=== PATIENT | female | born 1955 | race Caucasian/White ===

== ENCOUNTER 2021-02-04 13:00 | Outpatient (RCR) | payer BC, SELFPAY ==
--- NOTE | 2020-09-18 15:53 | PT.OIE ---
Current Diagnoses Complete rotator cuff tear or rupture of right shoulder, not specified as traumatic (09/18/20) Past Medical History (Last Updated 10/15/19 @ 15:12 by Janna Shelton PA-C) Hordeolum internum right upper eyelid Visit Care Team Role Provider Type Other Providers Specialty: Address: Phone: Fax: Email: Attending Provider Referring Provider Specialty: Address: Phone: Fax: Email: Physical Therapy Initial Evaluation PT-OP-A Visit Information Start: 09/11/20 14:43 Freq: Status: Active Protocol: Document 09/18/20 12:59 MB (Rec: 09/18/20 13:15 MB [id number]) Out-Patient Physical Therapy Visit Information Visit Information Visit Type Initial Evaluation Visit Note [employer] out of state Visit Start Time 12:59 Visit Stop Time 13:37 Total Visit Minutes 38 Visit Number 1 Evaluation Information Evaluation Date 09/18/20 Precautions Precautions Protocol is in EMR: surgery was 08/07/20: sling for 6 weeks and no AROM until 8 weeks PT-OP-B Current Condition Start: 09/11/20 14:43 Freq: Status: Active Protocol: Document 09/18/20 12:59 MB (Rec: 09/18/20 13:15 MB [id number]) Current Condition History of Current Condition Onset Date 08/07/20 Current Complaints Inability to use right arm much post-op History of Current Condition Pt underwent right shoulder arthroscopic surgery on with op report stating right bicep and subscapularis repairs and extensive debridement with grafting technique. Pt's surgeon is in [place]. She just moved up to [place]. Pt is right handed. She has just gotten back in the bed and is trying to lie flatter with sleeping. Pt denies numbness and tingling and pain. PMH includes: left rotator cuff surgery 7 years ago and PT Prior Treatments and Tests Left shoulder surgery and PT, PT for left hamstrings and achilles problems Treatment Goals Patient/Caregiver Goals To learn how to use her arm safely PT-OP-C Subjective Start: 09/11/20 14:43 Freq: Status: Active Protocol: Document 09/18/20 12:59 MB (Rec: 09/18/20 13:15 MB [id number]) OP-PT Subjective Patient Comments Patient Comments See history of current condition Patient Questionnaires Quick Dash- Upper Extremity Quick Dash UE Score 43 Quick Dash UE Impairment 60 to 79% Impaired (Score 60- 79) PT-OP-J Posture/Palpation/Skin Start: 09/11/20 14:43 Freq: Status: Active Protocol: Document 09/18/20 12:59 MB (Rec: 09/18/20 15:52 MB [id number]) Posture Evaluation Comments Posture Comments Standing posture: pt does allow her right arm to dangle by her side: forward head, rounded shoulders, increased thoracic kyphosis, increased lumbar lordosis, right upper thoracic spine and scapula are tight with mildly protracted right scapula, mild upper thoracic convexity to the right. Skin Assessment Other Assessments Skin Assessment Comments Right shoulder arthroscopic scars healing well and no edema or ecchymosis, fascial tension over right posterior delt and triceps and pt states that graft had a pulling effect PT-OP-K Range of Motion Start: 09/11/20 14:43 Freq: Status: Active Protocol: Document 09/18/20 12:59 MB (Rec: 09/18/20 15:52 MB [id number]) Cervical Spine Range of Motion Cervical Spine Active Testing Position Standing Flexion 43 Extension 35 Rotation Left 54 Rotation Right 56 Shoulder Goniometric Range of Motion Shoulder Right Shoulder ROM WFL No Testing Position Standing and supine Comments PROM: in standing flexion to 40 deg and abduction to 25 deg and pt does not perform active assistance. In supine: flexion to 80 deg and abduction to 73 deg. With shoulder in 73 deg abduction, ER 0 deg and IR 5 deg Left Shoulder ROM WFL Yes Testing Position Standing Shoulder ROM Limitations Comments Guarding and post-op limitations PT-OP-M Strength Start: 09/11/20 14:43 Freq: Status: Active Protocol: Document 09/18/20 12:59 MB (Rec: 09/18/20 15:52 MB [id number]) Shoulder Strength Shoulder Manual Muscle Testing Left Flexion 5 Normal Abduction (C5) 5 Normal External Rotation 5 Normal Internal Rotation 5 Normal Right Comments MMT deferred post-op 6 weeks Elbow/Forearm Strength Elbow and Forearm Manual Muscle Testing Left Flexion (C6) 5 Normal Extension (C7) 5 Normal Pronation 5 Normal Supination 5 Normal Right Comments MMT deferred post-op Wrist Strength Wrist Manual Muscle Testing Left Flexion (C7) 5 Normal Extension (C6) 5 Normal Right Comments MMT deferred post-op d/t pt guarding PT-OP-Q Treatments Start: 09/11/20 14:43 Freq: Status: Active Protocol: Document 09/18/20 12:59 MB (Rec: 09/18/20 15:52 MB [id number]) Therapeutic Exercises Standing Exercises Racquet ball massage Side right Comments Intrascapular muscles and then hold ball there and rotate head away Theracane MWM for upper traps and levator Side right Comments TrP pressure and tipping head away from that side Pendulum Comments PT demonstrates and pt states that she is already performing Self-Care/Home Management Treatment Education Other Education Use of towel roll for cervical support and to unweight shoulders for sleeping, use of peas PT-OP-T Assessment and Plan Start: 09/11/20 14:43 Freq: Status: Active Protocol: Document 09/18/20 12:59 MB (Rec: 09/18/20 15:52 MB [id number]) Physical Therapy Assessment Rehab Potential Rehabilitation Potential Good Evaluation Complexity Number of Personal Factors/Comorbidities 1-2 Number of Body Systems Impaired 1-2 Clinical Presentation at Evaluation Stable Impairments Impairments Activity Tolerance,Balance, Coordination,Functional Activities,Functional Mobility ,Gait,Posture,ROM,Soft Tissue Mobility,Strength Other Impairments Pt denies pain. She reports she has been guarded her right arm a lot and this may be a barrier to PT. Body systems affected include musculoskeletal and neuromuscular. Her clinical presentation is stable. Goals 5 System Safety Engineer Goal (LTG) Pt will perform progressive HEP with I including ROM, strengthening, postural, core and balance exercises to improve function by 11/19/20. LTG Duration 8 weeks 4 Usp Goal (LTG) Pt will be able to return to gardening for 20 minutes by 11/19/20. LTG Duration 8 weeks 3 System Safety Engineer Goal (LTG) Pt will be able to perform spinning yarn and knitting without pain by 11/19/20. LTG Duration 8 weeks 2 System Safety Engineer Goal (LTG) Pt will present with improved right shoulder AROM to at least 120 deg flexion and 100 deg abduction to improve functional use of arm by . LTG Duration 8 weeks 1 System Safety Engineer Goal (LTG) Pt will present with an improved QuickDASH score to reflect no more than 20% impairment to improve ADLs and IADLs by 11/19/20. LTG Duration 8 weeks Assessment Summary Assessment Pt is a 64 y/o female presenting with decreased right shoulder ROM and functional use after right shoulder arthroscopic surgery in [place] 08/07/20. Pt underwent cadaver grafting as part of surgeon protocol. Per order, pt is not supposed to start AROM until 8 weeks post-op. There are no other therapy guidelines on order. Pt presents with scars healing well, no edema or ecchymosis and noticeable fascial tension along right posterior deltoid and triceps. She presents with thoracic and cervical stiffness and good range and strength of LUE. She has been performing pendulums and right elbow flexion, supination and pronation and wrist movement. She will benefit from PT to improve range of motion, functional strength and posture. Physical Therapy Plan Frequency and Duration Frequency of Treatment 2x/Week Duration of Treatment 8 weeks Plan of Care Start Date 09/18/20 Plan of Care End Date 11/19/20 Therapeutic Interventions Therapeutic Interventions Balance Training,Canalithic Repositioning,Gait Training, Home Exercise Program,Joint Mobilizations,Manual Therapy, Neuromuscular Re-education, Orthotic/Prosthetic Management ,Patient/Caregiver Education, Self-Care/Home Management,Soft Tissue Mobilization,Taping, Therapeutic Activities, Therapeutic Exercises Modalities Cold Pack/Ice Massage,Electric Stimulation,Hot Packs, Ultrasound Next Visit Focus/Plan Next Note Type Treatment Note Next Visit Plan Initiate thoracic rotation in sitting, scapular retraction & hook lying cane flexion for HEP, manual work
--- NOTE | 2020-09-18 15:53 | PT.OPPOC ---
Physical, Occupational & Speech Therapy At [facility] Current Diagnoses Complete rotator cuff tear or rupture of right shoulder, not specified as traumatic (09/18/20) Visit Care Team Role Provider Type Other Providers Specialty: Address: Phone: Fax: Email: Attending Provider Referring Provider Specialty: Address: Phone: Fax: Email: Plan Of Care PT-OP-T Assessment and Plan Start: 09/11/20 14:43 Freq: Status: Active Protocol: Document 09/18/20 12:59 MB (Rec: 09/18/20 15:52 MB [id number]) Physical Therapy Assessment Rehab Potential Rehabilitation Potential Good Evaluation Complexity Number of Personal Factors/Comorbidities 1-2 Number of Body Systems Impaired 1-2 Clinical Presentation at Evaluation Stable Impairments Impairments Activity Tolerance,Balance, Coordination,Functional Activities,Functional Mobility ,Gait,Posture,ROM,Soft Tissue Mobility,Strength Other Impairments Pt denies pain. She reports she has been guarded her right arm a lot and this may be a barrier to PT. Body systems affected include musculoskeletal and neuromuscular. Her clinical presentation is stable. Goals 5 Excellence Consultant Goal (LTG) Pt will perform progressive HEP with I including ROM, strengthening, postural, core and balance exercises to improve function by 11/19/20. LTG Duration 8 weeks 4 Excellence Consultant Goal (LTG) Pt will be able to return to gardening for 20 minutes by 11/19/20. LTG Duration 8 weeks 3 Excellence Consultant Goal (LTG) Pt will be able to perform spinning yarn and knitting without pain by 11/19/20. LTG Duration 8 weeks 2 Detention Goal (LTG) Pt will present with improved right shoulder AROM to at least 120 deg flexion and 100 deg abduction to improve functional use of arm by . LTG Duration 8 weeks 1 Detention Goal (LTG) Pt will present with an improved QuickDASH score to reflect no more than 20% impairment to improve ADLs and IADLs by 11/19/20. LTG Duration 8 weeks Assessment Summary Assessment Pt is a 64 y/o female presenting with decreased right shoulder ROM and functional use after right shoulder arthroscopic surgery in [place] 08/07/20. Pt underwent cadaver grafting as part of surgeon protocol. Per order, pt is not supposed to start AROM until 8 weeks post-op. There are no other therapy guidelines on order. Pt presents with scars healing well, no edema or ecchymosis and noticeable fascial tension along right posterior deltoid and triceps. She presents with thoracic and cervical stiffness and good range and strength of LUE. She has been performing pendulums and right elbow flexion, supination and pronation and wrist movement. She will benefit from PT to improve range of motion, functional strength and posture. Physical Therapy Plan Frequency and Duration Frequency of Treatment 2x/Week Duration of Treatment 8 weeks Plan of Care Start Date 09/18/20 Plan of Care End Date 11/19/20 Therapeutic Interventions Therapeutic Interventions Balance Training,Canalithic Repositioning,Gait Training, Home Exercise Program,Joint Mobilizations,Manual Therapy, Neuromuscular Re-education, Orthotic/Prosthetic Management ,Patient/Caregiver Education, Self-Care/Home Management,Soft Tissue Mobilization,Taping, Therapeutic Activities, Therapeutic Exercises Modalities Cold Pack/Ice Massage,Electric Stimulation,Hot Packs, Ultrasound Next Visit Focus/Plan Next Note Type Treatment Note Next Visit Plan Initiate thoracic rotation in sitting, scapular retraction & hook lying cane flexion for HEP, manual work Plan of Care Dates Plan of Care Start Date 09/18/20 Plan of Care End Date 11/19/20 Electronically Signed by: Aminah Malik PT 09/18/20 [id number] Please Sign and Return: I have reviewed this Plan of Care and certify that the skilled therapy services above are required to meet the patient?s needs. Physician Signature Date Printed Name and Credentials Clinical Instructor Signature Printed Name and Credentials
--- NOTE | 2020-09-22 13:10 | PT.OTN ---
Current Diagnoses Complete rotator cuff tear or rupture of right shoulder, not specified as traumatic (09/22/20) Physical Therapy Treatment Note PT-OP-A Visit Information Start: 09/11/20 14:43 Freq: Status: Active Protocol: Document 09/22/20 12:19 SP (Rec: 09/22/20 13:09 SP [id number]) Out-Patient Physical Therapy Visit Information Visit Information Visit Type Treatment Note Visit Start Time 12:19 Visit Stop Time 13:10 Total Visit Minutes 51 Visit Number 2 Number of MEDICAL PATHOLOGIST Visits 1 Evaluation Information Evaluation Date 09/18/20 Precautions Precautions Protocol is in EMR: surgery was 08/07/20: sling for 6 weeks and no AROM until 8 weeks PT-OP-B Current Condition Start: 09/11/20 14:43 Freq: Status: Active Protocol: Document 09/18/20 12:59 MB (Rec: 09/18/20 13:15 MB [id number]) Current Condition History of Current Condition Onset Date 08/07/20 Current Complaints Inability to use right arm much post-op History of Current Condition Pt underwent right shoulder arthroscopic surgery on with op report stating right bicep and subscapularis repairs and extensive debridement with grafting technique. Pt's surgeon is in [place]. She just moved up to [place]. Pt is right handed. She has just gotten back in the bed and is trying to lie flatter with sleeping. Pt denies numbness and tingling and pain. PMH includes: left rotator cuff surgery 7 years ago and PT Prior Treatments and Tests Left shoulder surgery and PT, PT for left hamstrings and achilles problems Treatment Goals Patient/Caregiver Goals To learn how to use her arm safely PT-OP-C Subjective Start: 09/11/20 14:43 Freq: Status: Active Protocol: Document 09/22/20 12:19 SP (Rec: 09/22/20 13:09 SP [id number]) OP-PT Subjective Patient Comments Patient Comments Pt stated did move her R arm, PT-OP-J Posture/Palpation/Skin Start: 09/11/20 14:43 Freq: Status: Active Protocol: Document 09/18/20 12:59 MB (Rec: 09/18/20 15:52 MB [id number]) Posture Evaluation Comments Posture Comments Standing posture: pt does allow her right arm to dangle by her side: forward head, rounded shoulders, increased thoracic kyphosis, increased lumbar lordosis, right upper thoracic spine and scapula are tight with mildly protracted right scapula, mild upper thoracic convexity to the right. Skin Assessment Other Assessments Skin Assessment Comments Right shoulder arthroscopic scars healing well and no edema or ecchymosis, fascial tension over right posterior delt and triceps and pt states that graft had a pulling effect PT-OP-K Range of Motion Start: 09/11/20 14:43 Freq: Status: Active Protocol: Document 09/18/20 12:59 MB (Rec: 09/18/20 15:52 MB [id number]) Cervical Spine Range of Motion Cervical Spine Active Testing Position Standing Flexion 43 Extension 35 Rotation Left 54 Rotation Right 56 Shoulder Goniometric Range of Motion Shoulder Right Shoulder ROM WFL No Testing Position Standing and supine Comments PROM: in standing flexion to 40 deg and abduction to 25 deg and pt does not perform active assistance. In supine: flexion to 80 deg and abduction to 73 deg. With shoulder in 73 deg abduction, ER 0 deg and IR 5 deg Left Shoulder ROM WFL Yes Testing Position Standing Shoulder ROM Limitations Comments Guarding and post-op limitations PT-OP-M Strength Start: 09/11/20 14:43 Freq: Status: Active Protocol: Document 09/18/20 12:59 MB (Rec: 09/18/20 15:52 MB [id number]) Shoulder Strength Shoulder Manual Muscle Testing Left Flexion 5 Normal Abduction (C5) 5 Normal External Rotation 5 Normal Internal Rotation 5 Normal Right Comments MMT deferred post-op 6 weeks Elbow/Forearm Strength Elbow and Forearm Manual Muscle Testing Left Flexion (C6) 5 Normal Extension (C7) 5 Normal Pronation 5 Normal Supination 5 Normal Right Comments MMT deferred post-op Wrist Strength Wrist Manual Muscle Testing Left Flexion (C7) 5 Normal Extension (C6) 5 Normal Right Comments MMT deferred post-op d/t pt guarding PT-OP-Q Treatments Start: 09/11/20 14:43 Freq: Status: Active Protocol: Document 09/22/20 12:19 SP (Rec: 09/22/20 13:09 SP [id number]) Therapeutic Exercises Supine Exercises AAROM dowel FF Supine Exercise Name added to HEP Side right Resistance AAROM Equipment Used dowel Reps/Minutes x8 reps Comments approx 90-95 deg Sitting Exercises Ts rotation Sitting Exercise Name LUE supporting RUE- added to HEP Side bilateral Reps/Minutes 5 sec hold x5 each side Comments good scap stab demonstration UT, Lev scap stretch Sitting Exercise Name added to HEP Side right Reps/Minutes 30 x3 each Comments good feedback response scap retraction Sitting Exercise Name added to HEP Side bilateral Reps/Minutes 5 sec hold x10 Comments good feedback response Standing Exercises Racquet ball massage Standing Exercise Name discussed but not performed this tx- helpful at home Side right Comments Intrascapular muscles and then hold ball there and rotate head away Theracane MWM for upper traps and levator Standing Exercise Name discussed but not performed this tx- helpful at home Side right Comments TrP pressure and tipping head away from that side Pendulum Standing Exercise Name discussed but not performed this tx- has been performing since surgery Comments PT demonstrates and pt states that she is already performing Manual Therapy Treatment Soft Tissue Mobilization R scap PNF Body Position Sidelying Comments retract/ depress stabilization STMs Body Location UT, Lev scap, suprasp, bicep Mobilization Type Myofascial Release,Strumming Intensity/Depth Superficial Body Position Supine PT-OP-R Modalities Start: 09/11/20 14:43 Freq: Status: Active Protocol: Document 09/22/20 12:19 SP (Rec: 09/22/20 13:09 SP [id number]) Hot Pack/Cold Pack Treatment cryocuf Location R shld Patient Position Sitting Treatment Duration (minutes) 10 Patient Tolerance Good PT-OP-T Assessment and Plan Start: 09/11/20 14:43 Freq: Status: Active Protocol: Document 09/22/20 12:19 SP (Rec: 09/22/20 13:09 SP [id number]) Physical Therapy Assessment Goals 5 Residential Goal (LTG) Pt will perform progressive HEP with I including ROM, strengthening, postural, core and balance exercises to improve function by 11/19/20. 09/22/20: supine FF w/ dowel, seated scap retraction/TS rotation/ UT & lev scap stretch, self STMs using racquetball and theracane. LTG Duration 8 weeks 4 Residential Goal (LTG) Pt will be able to return to gardening for 20 minutes by 11/19/20. LTG Duration 8 weeks 3 Logistics System Engineer Goal (LTG) Pt will be able to perform spinning yarn and knitting without pain by 11/19/20. LTG Duration 8 weeks 2 Logistics System Engineer Goal (LTG) Pt will present with improved right shoulder AROM to at least 120 deg flexion and 100 deg abduction to improve functional use of arm by . LTG Duration 8 weeks 1 Residential Goal (LTG) Pt will present with an improved QuickDASH score to reflect no more than 20% impairment to improve ADLs and IADLs by 11/19/20. LTG Duration 8 weeks Assessment Summary Assessment Pt had good tolerance to manual STMs/ PROM, initiated HEP supine/ seated see HEP goal. Ended with modality with good response no pain. Physical Therapy Plan Frequency and Duration Frequency of Treatment 2x/Week Duration of Treatment 8 weeks Plan of Care Start Date 09/18/20 Plan of Care End Date 11/19/20 Therapeutic Interventions Therapeutic Interventions Balance Training,Canalithic Repositioning,Gait Training, Home Exercise Program,Joint Mobilizations,Manual Therapy, Neuromuscular Re-education, Orthotic/Prosthetic Management ,Patient/Caregiver Education, Self-Care/Home Management,Soft Tissue Mobilization,Taping, Therapeutic Activities, Therapeutic Exercises Modalities Cold Pack/Ice Massage,Electric Stimulation,Hot Packs, Ultrasound Next Visit Focus/Plan Next Note Type Treatment Note Next Visit Plan Last tx: Initiate thoracic rotation in sitting, scapular retraction & hook lying cane flexion for HEP. Next tx review. manual work
--- NOTE | 2020-09-25 15:26 | PT.OTN ---
Current Diagnoses Complete rotator cuff tear or rupture of right shoulder, not specified as traumatic (09/25/20) Physical Therapy Treatment Note PT-OP-A Visit Information Start: 09/11/20 14:43 Freq: Status: Active Protocol: Document 09/25/20 14:32 MB (Rec: 09/25/20 15:21 MB [id number]) Out-Patient Physical Therapy Visit Information Visit Information Visit Type Treatment Note Visit Start Time 14:32 Visit Stop Time 15:15 Total Visit Minutes 43 Visit Number 3 Number of FISHING HAND Visits 0 Precautions Precautions Protocol is in EMR: surgery was 08/07/20: sling for 6 weeks and no AROM until 8 weeks PT-OP-B Current Condition Start: 09/11/20 14:43 Freq: Status: Active Protocol: Document 09/18/20 12:59 MB (Rec: 09/18/20 13:15 MB [id number]) Current Condition History of Current Condition Onset Date 08/07/20 Current Complaints Inability to use right arm much post-op History of Current Condition Pt underwent right shoulder arthroscopic surgery on with op report stating right bicep and subscapularis repairs and extensive debridement with grafting technique. Pt's surgeon is in [place]. She just moved up to [place]. Pt is right handed. She has just gotten back in the bed and is trying to lie flatter with sleeping. Pt denies numbness and tingling and pain. PMH includes: left rotator cuff surgery 7 years ago and PT Prior Treatments and Tests Left shoulder surgery and PT, PT for left hamstrings and achilles problems Treatment Goals Patient/Caregiver Goals To learn how to use her arm safely PT-OP-C Subjective Start: 09/11/20 14:43 Freq: Status: Active Protocol: Document 09/25/20 14:32 MB (Rec: 09/25/20 15:21 MB [id number]) OP-PT Subjective Patient Comments Patient Comments Pt states that she forgot the hard copies of her doctor's notes and exercises today. She will be 8 weeks post-op . Her follow-up with the surgeon over Telehealth is 10/21. Pt is noticing knots in her neck. PT-OP-J Posture/Palpation/Skin Start: 09/11/20 14:43 Freq: Status: Active Protocol: Document 09/18/20 12:59 MB (Rec: 09/18/20 15:52 MB [id number]) Posture Evaluation Comments Posture Comments Standing posture: pt does allow her right arm to dangle by her side: forward head, rounded shoulders, increased thoracic kyphosis, increased lumbar lordosis, right upper thoracic spine and scapula are tight with mildly protracted right scapula, mild upper thoracic convexity to the right. Skin Assessment Other Assessments Skin Assessment Comments Right shoulder arthroscopic scars healing well and no edema or ecchymosis, fascial tension over right posterior delt and triceps and pt states that graft had a pulling effect PT-OP-K Range of Motion Start: 09/11/20 14:43 Freq: Status: Active Protocol: Document 09/18/20 12:59 MB (Rec: 09/18/20 15:52 MB [id number]) Cervical Spine Range of Motion Cervical Spine Active Testing Position Standing Flexion 43 Extension 35 Rotation Left 54 Rotation Right 56 Shoulder Goniometric Range of Motion Shoulder Right Shoulder ROM WFL No Testing Position Standing and supine Comments PROM: in standing flexion to 40 deg and abduction to 25 deg and pt does not perform active assistance. In supine: flexion to 80 deg and abduction to 73 deg. With shoulder in 73 deg abduction, ER 0 deg and IR 5 deg Left Shoulder ROM WFL Yes Testing Position Standing Shoulder ROM Limitations Comments Guarding and post-op limitations PT-OP-M Strength Start: 09/11/20 14:43 Freq: Status: Active Protocol: Document 09/18/20 12:59 MB (Rec: 09/18/20 15:52 MB [id number]) Shoulder Strength Shoulder Manual Muscle Testing Left Flexion 5 Normal Abduction (C5) 5 Normal External Rotation 5 Normal Internal Rotation 5 Normal Right Comments MMT deferred post-op 6 weeks Elbow/Forearm Strength Elbow and Forearm Manual Muscle Testing Left Flexion (C6) 5 Normal Extension (C7) 5 Normal Pronation 5 Normal Supination 5 Normal Right Comments MMT deferred post-op Wrist Strength Wrist Manual Muscle Testing Left Flexion (C7) 5 Normal Extension (C6) 5 Normal Right Comments MMT deferred post-op d/t pt guarding PT-OP-Q Treatments Start: 09/11/20 14:43 Freq: Status: Active Protocol: Document 09/25/20 14:32 MB (Rec: 09/25/20 15:25 MB [id number]) Manual Therapy Treatment Other Other Manual Treatments STM right pects with PROM right shoulder ER and IR, passive shoulder flexion and extension to neutral, positional release and STM posterior and middle right delt, B first rib isometric, MWM B SCMs with PT providing TrP pressure and pt performing active cervical rotation opposite direction, scapular mobs B scapula, greater on the right. Much improve right pect and posterior deltoid tension after treatment, B first ribs moving better and right scapula moving better. PT-OP-R Modalities Start: 09/11/20 14:43 Freq: Status: Active Protocol: Document 09/22/20 12:19 SP (Rec: 09/22/20 13:09 SP [id number]) Hot Pack/Cold Pack Treatment cryocuf Location R shld Patient Position Sitting Treatment Duration (minutes) 10 Patient Tolerance Good PT-OP-T Assessment and Plan Start: 09/11/20 14:43 Freq: Status: Active Protocol: Document 09/25/20 14:32 MB (Rec: 09/25/20 15:21 MB [id number]) Physical Therapy Assessment Rehab Potential Rehabilitation Potential Good Evaluation Complexity Number of Personal Factors/Comorbidities 1-2 Number of Body Systems Impaired 1-2 Clinical Presentation at Evaluation Stable Impairments Impairments Activity Tolerance,Balance, Coordination,Functional Activities,Functional Mobility ,Gait,Posture,ROM,Soft Tissue Mobility,Strength Other Impairments Pt denies pain. She reports she has been guarded her right arm a lot and this may be a barrier to PT. Body systems affected include musculoskeletal and neuromuscular. Her clinical presentation is stable. Goals 5 Custodial Goal (LTG) Pt will perform progressive HEP with I including ROM, strengthening, postural, core and balance exercises to improve function by 11/19/20. LTG Duration 8 weeks 4 Health Insurance Agent Goal (LTG) Pt will be able to return to gardening for 20 minutes by 11/19/20. LTG Duration 8 weeks 3 Health Insurance Agent Goal (LTG) Pt will be able to perform spinning yarn and knitting without pain by 11/19/20. LTG Duration 8 weeks 2 Custodial Goal (LTG) Pt will present with improved right shoulder AROM to at least 120 deg flexion and 100 deg abduction to improve functional use of arm by . LTG Duration 8 weeks 1 Health Insurance Agent Goal (LTG) Pt will present with an improved QuickDASH score to reflect no more than 20% impairment to improve ADLs and IADLs by 11/19/20. LTG Duration 8 weeks Assessment Summary Assessment Manual work today to improve right scapular and myofascial mobility and pt tolerates well . She has significant increased thoracic kyphosis in prone and has started to work on thoracic mobility with exercises. Physical Therapy Plan Frequency and Duration Frequency of Treatment 2x/Week Duration of Treatment 8 weeks Plan of Care Start Date 09/18/20 Plan of Care End Date 11/19/20 Therapeutic Interventions Therapeutic Interventions Balance Training,Canalithic Repositioning,Gait Training, Home Exercise Program,Joint Mobilizations,Manual Therapy, Neuromuscular Re-education, Orthotic/Prosthetic Management ,Patient/Caregiver Education, Self-Care/Home Management,Soft Tissue Mobilization,Taping, Therapeutic Activities, Therapeutic Exercises Modalities Cold Pack/Ice Massage,Electric Stimulation,Hot Packs, Ultrasound Next Visit Focus/Plan Next Note Type Treatment Note Next Visit Plan Progress AAROM with cane in supine. Ongoing manual work including thoracic mobility, consider Counterstrain and Buteyko breathing. At 8 week dontrell 10/07/20, consider side lying open book, stretching over pool noodle
--- NOTE | 2020-09-29 13:01 | PT.OTN ---
Current Diagnoses Complete rotator cuff tear or rupture of right shoulder, not specified as traumatic (09/29/20) Physical Therapy Treatment Note PT-OP-A Visit Information Start: 09/11/20 14:43 Freq: Status: Active Protocol: Document 09/29/20 12:16 SP (Rec: 09/29/20 16:23 SP [id number]) Out-Patient Physical Therapy Visit Information Visit Information Visit Type Treatment Note Visit Start Time 12:16 Visit Stop Time 13:01 Total Visit Minutes 45 Visit Number 4 Number of PROJECT CONTROLS SCHEDULER Visits 1 Evaluation Information Evaluation Date 09/18/20 Precautions Precautions Protocol is in EMR: surgery was 08/07/20: sling for 6 weeks and no AROM until 8 weeks PT-OP-B Current Condition Start: 09/11/20 14:43 Freq: Status: Active Protocol: Document 09/18/20 12:59 MB (Rec: 09/18/20 13:15 MB [id number]) Current Condition History of Current Condition Onset Date 08/07/20 Current Complaints Inability to use right arm much post-op History of Current Condition Pt underwent right shoulder arthroscopic surgery on with op report stating right bicep and subscapularis repairs and extensive debridement with grafting technique. Pt's surgeon is in [place]. She just moved up to [place]. Pt is right handed. She has just gotten back in the bed and is trying to lie flatter with sleeping. Pt denies numbness and tingling and pain. PMH includes: left rotator cuff surgery 7 years ago and PT Prior Treatments and Tests Left shoulder surgery and PT, PT for left hamstrings and achilles problems Treatment Goals Patient/Caregiver Goals To learn how to use her arm safely PT-OP-C Subjective Start: 09/11/20 14:43 Freq: Status: Active Protocol: Document 09/29/20 12:16 SP (Rec: 09/29/20 16:23 SP [id number]) OP-PT Subjective Patient Comments Patient Comments Pt reported is please gaining more ROM and only wearing sling out in community, compliant with HEP but still having neck and R scapular stiffness/ tightness. She will be 8 weeks post-op 10/07/20. Her follow-up with the surgeon over Telehealth is 10/21/20. PT-OP-J Posture/Palpation/Skin Start: 09/11/20 14:43 Freq: Status: Active Protocol: Document 09/18/20 12:59 MB (Rec: 09/18/20 15:52 MB [id number]) Posture Evaluation Comments Posture Comments Standing posture: pt does allow her right arm to dangle by her side: forward head, rounded shoulders, increased thoracic kyphosis, increased lumbar lordosis, right upper thoracic spine and scapula are tight with mildly protracted right scapula, mild upper thoracic convexity to the right. Skin Assessment Other Assessments Skin Assessment Comments Right shoulder arthroscopic scars healing well and no edema or ecchymosis, fascial tension over right posterior delt and triceps and pt states that graft had a pulling effect PT-OP-K Range of Motion Start: 09/11/20 14:43 Freq: Status: Active Protocol: Document 09/18/20 12:59 MB (Rec: 09/18/20 15:52 MB [id number]) Cervical Spine Range of Motion Cervical Spine Active Testing Position Standing Flexion 43 Extension 35 Rotation Left 54 Rotation Right 56 Shoulder Goniometric Range of Motion Shoulder Right Shoulder ROM WFL No Testing Position Standing and supine Comments PROM: in standing flexion to 40 deg and abduction to 25 deg and pt does not perform active assistance. In supine: flexion to 80 deg and abduction to 73 deg. With shoulder in 73 deg abduction, ER 0 deg and IR 5 deg Left Shoulder ROM WFL Yes Testing Position Standing Shoulder ROM Limitations Comments Guarding and post-op limitations PT-OP-M Strength Start: 09/11/20 14:43 Freq: Status: Active Protocol: Document 09/18/20 12:59 MB (Rec: 09/18/20 15:52 MB [id number]) Shoulder Strength Shoulder Manual Muscle Testing Left Flexion 5 Normal Abduction (C5) 5 Normal External Rotation 5 Normal Internal Rotation 5 Normal Right Comments MMT deferred post-op 6 weeks Elbow/Forearm Strength Elbow and Forearm Manual Muscle Testing Left Flexion (C6) 5 Normal Extension (C7) 5 Normal Pronation 5 Normal Supination 5 Normal Right Comments MMT deferred post-op Wrist Strength Wrist Manual Muscle Testing Left Flexion (C7) 5 Normal Extension (C6) 5 Normal Right Comments MMT deferred post-op d/t pt guarding PT-OP-Q Treatments Start: 09/11/20 14:43 Freq: Status: Active Protocol: Document 09/29/20 12:16 SP (Rec: 09/29/20 16:23 SP [id number]) Therapeutic Exercises Supine Exercises Rshld ER AROM Side right Resistance AROM Reps/Minutes x5 Comments 62 deg tolerant range, cued scap stab dowel protaction Supine Exercise Name 1 protraction- added to HEP Side bilateral Resistance AROM Reps/Minutes 2x10 Comments occasional cue for scap stab depression, pain free AAROM dowel ER Supine Exercise Name added to HEP- Side right Resistance AAROM Equipment Used dowel Reps/Minutes x8 reps Comments 62 *- painfree range- not over stress shld AAROM dowel FF Supine Exercise Name reviewed HEP Side right Resistance AAROM Equipment Used dowel Reps/Minutes 2x8 reps Comments approx 126 deg Sidelying Exercises R shld ER Sidelying Exercise Name added to HEP- give HO next tx Side right Resistance AROM Equipment Used towel roll under arm Reps/Minutes 2x8 Comments occasional cue for scap depress awareness Sitting Exercises cervical rotation Sitting Exercise Name review HEP Side bilateral Reps/Minutes 15 sec hold x2 Comments can provide over pressure to L using LUE for assist stretch Ts rotation Sitting Exercise Name LUE supporting RUE- reviewed HEP Side bilateral Reps/Minutes 5 sec hold x5 each side Comments good scap stab demonstration UT, Lev scap stretch Sitting Exercise Name review HEP Side right Reps/Minutes 30 x2 each Comments good feedback response scap retraction Sitting Exercise Name added to HEP Side bilateral Reps/Minutes 5 sec hold x10 Comments good feedback response Standing Exercises shld IR assess Standing Exercise Name pt able reach R hand behind R buttocks Side right Resistance AROM Equipment Used 0 Reps/Minutes x3 Comments light tension anterior shld but not pain feels good to do little Theracane MWM for upper traps and levator Standing Exercise Name UT, lev scap, interscapular mus. Side right Resistance head not/ turns, or scap mov't see HO Comments TrP pressure, MWM today arms rested on chest holding theracane Manual Therapy Treatment Soft Tissue Mobilization STMs Body Location UT, Lev scap, suprasp, bicep Mobilization Type Myofascial Release,Strumming Intensity/Depth Superficial Body Position Supine Comments Instruction on self application sustained pressure fingers or theracane with head turn/ nod pressure on neck mus, or scap mob pressure over UT/ lev scap. PT-OP-R Modalities Start: 09/11/20 14:43 Freq: Status: Active Protocol: Document 09/22/20 12:19 SP (Rec: 09/22/20 13:09 SP [id number]) Hot Pack/Cold Pack Treatment cryocuf Location R shld Patient Position Sitting Treatment Duration (minutes) 10 Patient Tolerance Good PT-OP-T Assessment and Plan Start: 09/11/20 14:43 Freq: Status: Active Protocol: Document 09/29/20 12:16 SP (Rec: 09/29/20 16:23 SP [id number]) Physical Therapy Assessment Goals 5 Assisted Goal (LTG) Pt will perform progressive HEP with I including ROM, strengthening, postural, core and balance exercises to improve function by 11/19/20. 09/29/20: self STMs racquetball at wall interscapular, theracane MWM neck/ interscap, UT/lev scap/CS rotation w/ over gentle over pressure, hooklying: Dowel, FF, serratus press. LTG Duration 8 weeks 4 Assisted Goal (LTG) Pt will be able to return to gardening for 20 minutes by 11/19/20. LTG Duration 8 weeks 3 Assisted Goal (LTG) Pt will be able to perform spinning yarn and knitting without pain by 11/19/20. LTG Duration 8 weeks 2 Assisted Goal (LTG) Pt will present with improved right shoulder AROM to at least 120 deg flexion and 100 deg abduction to improve functional use of arm by . 09/29/20: AAROM w/ dowel 126 deg, ABD PROM 110 deg, ER AAROM 62 deg hooklying tension but stops end feel can perform to maintain pain free range. LTG Duration 8 weeks 1 Social Sciences Lecturer Goal (LTG) Pt will present with an improved QuickDASH score to reflect no more than 20% impairment to improve ADLs and IADLs by 11/19/20. LTG Duration 8 weeks Assessment Summary Assessment Manual and instructional review of self application STMs and stretching, reviewed HEP hooklying FF, added serratus press today w/ dowel painfree, side shld ER AROM with good painfree, and awareness of scap stab, trunk stability. Pt is able to tolerate what allowed to instruct at this time post- op . PT recommended reduction to 1x/wk after appt finished until see ortho with further allowance of ROM and strengthening. PROJECT CONTROLS SCHEDULER left message and sent message to front desk admin for awareness cxl appt. Physical Therapy Plan Frequency and Duration Frequency of Treatment 2x/Week Duration of Treatment 8 weeks Plan of Care Start Date 09/18/20 Plan of Care End Date 11/19/20 Therapeutic Interventions Therapeutic Interventions Balance Training,Canalithic Repositioning,Gait Training, Home Exercise Program,Joint Mobilizations,Manual Therapy, Neuromuscular Re-education, Orthotic/Prosthetic Management ,Patient/Caregiver Education, Self-Care/Home Management,Soft Tissue Mobilization,Taping, Therapeutic Activities, Therapeutic Exercises Modalities Cold Pack/Ice Massage,Electric Stimulation,Hot Packs, Ultrasound Next Visit Focus/Plan Next Note Type Treatment Note Next Visit Plan Progress AAROM with cane in supine. Ongoing manual work including thoracic mobility, consider Counterstrain and Buteyko breathing. At 8 week dontrell 10/07/20, consider side lying open book, stretching over pool noodle
--- NOTE | 2020-09-30 11:13 | PT-OP ANOTE ---
PT and CORPORATE TRAVEL AGENT discuss about reducing PT frequency to 1x/wk until pt follows-up with surgeon and protocol can be advanced since pt is doing well with AAROM exercises. CORPORATE TRAVEL AGENT leaves a message for pt. Pt calls PT back and states that she does not want to reduce PT frequency unless cleared by provider, Mer Carpenter, and she asks PT to call her office. PT calls office in [place] and is informed that Mer's new last name is Rosa Maria and this is the provider listed in EMR for pt. Staff at provider office read provider's last note with shoulder restrictions and these are what PT has from the eval. They verify the follow-up appointment via Telehealth in October. PT asks for an updated specific protocol to be faxed to this clinic and PT provides fax number in setting of out of state shoulder arthroscopic surgery with grafting. Staff person, Tara, states that he will do this. PT calls pt and pt states that Mer said at her last visit that she wants to hear from PT about pt's progress and invited conversation. PT communicates that PT has contacted provider office and is awaiting updated protocol with request for specific protocol. PT also communicates that PT will perform progress note at 10th visit or when pt is able to advance so that better information can be provided to provider. Pt comments that she feels that provider wants to hear more often from PT. Unsure about pt expectations about PT communicating with provider. PT con't to recommend decreasing frequency to 1x/wk since pt is doing well with AAROM exercises and pt herself is cautious about wanting to wait for follow-up before advancing anything with PT. Will await hearing back from provider office.
--- NOTE | 2020-10-02 15:24 | PT.OTN ---
Current Diagnoses Complete rotator cuff tear or rupture of right shoulder, not specified as traumatic (10/02/20) Physical Therapy Treatment Note PT-OP-A Visit Information Start: 09/11/20 14:43 Freq: Status: Active Protocol: Document 10/02/20 14:43 MB (Rec: 10/02/20 15:15 MB [id number]) Out-Patient Physical Therapy Visit Information Visit Information Visit Type Treatment Note Visit Start Time 14:43 Visit Stop Time 15:15 Total Visit Minutes 32 Visit Number 5 Precautions Precautions No specific protocol yet arrived and PT called and asked for one earlier in the week and pt also left a message PT-OP-B Current Condition Start: 09/11/20 14:43 Freq: Status: Active Protocol: Document 09/18/20 12:59 MB (Rec: 09/18/20 13:15 MB [id number]) Current Condition History of Current Condition Onset Date 08/07/20 Current Complaints Inability to use right arm much post-op History of Current Condition Pt underwent right shoulder arthroscopic surgery on with op report stating right bicep and subscapularis repairs and extensive debridement with grafting technique. Pt's surgeon is in [place]. She just moved up to [place]. Pt is right handed. She has just gotten back in the bed and is trying to lie flatter with sleeping. Pt denies numbness and tingling and pain. PMH includes: left rotator cuff surgery 7 years ago and PT Prior Treatments and Tests Left shoulder surgery and PT, PT for left hamstrings and achilles problems Treatment Goals Patient/Caregiver Goals To learn how to use her arm safely PT-OP-C Subjective Start: 09/11/20 14:43 Freq: Status: Active Protocol: Document 10/02/20 14:43 MB (Rec: 10/02/20 15:15 MB [id number]) OP-PT Subjective Patient Comments Patient Comments Pt is eager to proceed as rapidly as reasonable. She is 8 weeks out today and did not wear sling to PT. PT-OP-J Posture/Palpation/Skin Start: 09/11/20 14:43 Freq: Status: Active Protocol: Document 09/18/20 12:59 MB (Rec: 09/18/20 15:52 MB [id number]) Posture Evaluation Comments Posture Comments Standing posture: pt does allow her right arm to dangle by her side: forward head, rounded shoulders, increased thoracic kyphosis, increased lumbar lordosis, right upper thoracic spine and scapula are tight with mildly protracted right scapula, mild upper thoracic convexity to the right. Skin Assessment Other Assessments Skin Assessment Comments Right shoulder arthroscopic scars healing well and no edema or ecchymosis, fascial tension over right posterior delt and triceps and pt states that graft had a pulling effect PT-OP-K Range of Motion Start: 09/11/20 14:43 Freq: Status: Active Protocol: Document 09/18/20 12:59 MB (Rec: 09/18/20 15:52 MB [id number]) Cervical Spine Range of Motion Cervical Spine Active Testing Position Standing Flexion 43 Extension 35 Rotation Left 54 Rotation Right 56 Shoulder Goniometric Range of Motion Shoulder Right Shoulder ROM WFL No Testing Position Standing and supine Comments PROM: in standing flexion to 40 deg and abduction to 25 deg and pt does not perform active assistance. In supine: flexion to 80 deg and abduction to 73 deg. With shoulder in 73 deg abduction, ER 0 deg and IR 5 deg Left Shoulder ROM WFL Yes Testing Position Standing Shoulder ROM Limitations Comments Guarding and post-op limitations PT-OP-M Strength Start: 09/11/20 14:43 Freq: Status: Active Protocol: Document 09/18/20 12:59 MB (Rec: 09/18/20 15:52 MB [id number]) Shoulder Strength Shoulder Manual Muscle Testing Left Flexion 5 Normal Abduction (C5) 5 Normal External Rotation 5 Normal Internal Rotation 5 Normal Right Comments MMT deferred post-op 6 weeks Elbow/Forearm Strength Elbow and Forearm Manual Muscle Testing Left Flexion (C6) 5 Normal Extension (C7) 5 Normal Pronation 5 Normal Supination 5 Normal Right Comments MMT deferred post-op Wrist Strength Wrist Manual Muscle Testing Left Flexion (C7) 5 Normal Extension (C6) 5 Normal Right Comments MMT deferred post-op d/t pt guarding PT-OP-Q Treatments Start: 09/11/20 14:43 Freq: Status: Active Protocol: Document 10/02/20 14:43 MB (Rec: 10/02/20 15:15 MB [id number]) Therapeutic Exercises Supine Exercises AAROM abduction Supine Exercise Name Easier with cane compared to theracane Side right Comments 5 reps slowly, to 60 deg AAROM dowel ER Supine Exercise Name Pt uses cane and theracane ( which she uses at home) Side right Comments Use of left hand, 5 reps, ed to perform in abduction AAROM dowel FF Supine Exercise Name Pt uses cane and theracane Side bilateral Comments 5 reps Prone Exercises Scapular row with elbow flexion Side right Comments 5 reps slowly, focus on scapular retraction PT-OP-R Modalities Start: 09/11/20 14:43 Freq: Status: Active Protocol: Document 09/22/20 12:19 SP (Rec: 09/22/20 13:09 SP [id number]) Hot Pack/Cold Pack Treatment cryocuf Location R shld Patient Position Sitting Treatment Duration (minutes) 10 Patient Tolerance Good PT-OP-T Assessment and Plan Start: 09/11/20 14:43 Freq: Status: Active Protocol: Document 10/02/20 14:43 MB (Rec: 10/02/20 15:15 MB [id number]) Physical Therapy Assessment Rehab Potential Rehabilitation Potential Good Evaluation Complexity Number of Personal Factors/Comorbidities 1-2 Number of Body Systems Impaired 1-2 Clinical Presentation at Evaluation Stable Impairments Impairments Activity Tolerance,Balance, Coordination,Functional Activities,Functional Mobility ,Gait,Posture,ROM,Soft Tissue Mobility,Strength Other Impairments Pt denies pain. She reports she has been guarded her right arm a lot and this may be a barrier to PT. Body systems affected include musculoskeletal and neuromuscular. Her clinical presentation is stable. Goals 5 Mcfp Goal (LTG) Pt will perform progressive HEP with I including ROM, strengthening, postural, core and balance exercises to improve function by 11/19/20. LTG Duration 8 weeks 4 Plate Embosser Goal (LTG) Pt will be able to return to gardening for 20 minutes by 11/19/20. LTG Duration 8 weeks 3 Mcfp Goal (LTG) Pt will be able to perform spinning yarn and knitting without pain by 11/19/20. LTG Duration 8 weeks 2 Plate Embosser Goal (LTG) Pt will present with improved right shoulder AROM to at least 120 deg flexion and 100 deg abduction to improve functional use of arm by . LTG Duration 8 weeks 1 Mcfp Goal (LTG) Pt will present with an improved QuickDASH score to reflect no more than 20% impairment to improve ADLs and IADLs by 11/19/20. LTG Duration 8 weeks Assessment Summary Assessment PT note today will be faxed to Mer Crane, pt's provider. PT goals is for Mer to see pt's progress in light of pt having virtual follow-up with provider given [place] state. Pt is 8 weeks post-op right shoulder arthroscopic surgery with cadaver graft. She is very compliant to doing well. Today , PROM right shoulder in supine: abduction to 90 deg and ER and IR 5 deg in this position (PT does not push range and works to patient tolerance and tight end-range) , flexion 135 deg. 140 deg flexion with AAROM with pt using Theracane and left hand assist. Did add prone scapular retraction rows to HEP today. Pt is cautious and compliant with all PT recommendations. PT requests from provider: faxed protocol or note stating that PT and pt can progress all to tolerance: right shoulder ROM and strengthening and manual work. PT and pt will be sure to communicate and stop any progression that causes non-therapeutic pain. Will see pt 1x/wk for the next two weeks in hopes of receiving clearance from provider for progression. Pt to con't with HEP and she will receive manual PT intervention during visits. Physical Therapy Plan Frequency and Duration Frequency of Treatment 2x/Week Duration of Treatment 8 weeks Plan of Care Start Date 09/18/20 Plan of Care End Date 11/19/20 Therapeutic Interventions Therapeutic Interventions Balance Training,Canalithic Repositioning,Gait Training, Home Exercise Program,Joint Mobilizations,Manual Therapy, Neuromuscular Re-education, Orthotic/Prosthetic Management ,Patient/Caregiver Education, Self-Care/Home Management,Soft Tissue Mobilization,Taping, Therapeutic Activities, Therapeutic Exercises Modalities Cold Pack/Ice Massage,Electric Stimulation,Hot Packs, Ultrasound Next Visit Focus/Plan Next Note Type Treatment Note Next Visit Plan Consider stretching over pool noodle. Ongoing manual work including thoracic mobility, consider Counterstrain and Buteyko breathing.
--- NOTE | 2020-10-06 09:54 | PT.OTN ---
Current Diagnoses Complete rotator cuff tear or rupture of right shoulder, not specified as traumatic (10/06/20) Physical Therapy Treatment Note PT-OP-A Visit Information Start: 09/11/20 14:43 Freq: Status: Active Protocol: Document 10/06/20 09:02 MB (Rec: 10/06/20 09:54 MB [id number]) Out-Patient Physical Therapy Visit Information Visit Information Visit Type Treatment Note Visit Start Time 09:02 Visit Stop Time 09:45 Total Visit Minutes 43 Visit Number 6 Precautions Precautions No specific protocol yet arrived PT-OP-B Current Condition Start: 09/11/20 14:43 Freq: Status: Active Protocol: Document 09/18/20 12:59 MB (Rec: 09/18/20 13:15 MB [id number]) Current Condition History of Current Condition Onset Date 08/07/20 Current Complaints Inability to use right arm much post-op History of Current Condition Pt underwent right shoulder arthroscopic surgery on with op report stating right bicep and subscapularis repairs and extensive debridement with grafting technique. Pt's surgeon is in [place]. She just moved up to [place]. Pt is right handed. She has just gotten back in the bed and is trying to lie flatter with sleeping. Pt denies numbness and tingling and pain. PMH includes: left rotator cuff surgery 7 years ago and PT Prior Treatments and Tests Left shoulder surgery and PT, PT for left hamstrings and achilles problems Treatment Goals Patient/Caregiver Goals To learn how to use her arm safely PT-OP-C Subjective Start: 09/11/20 14:43 Freq: Status: Active Protocol: Document 10/06/20 09:02 MB (Rec: 10/06/20 09:54 MB [id number]) OP-PT Subjective Patient Comments Patient Comments Pt states that she was a little stiff in the morning. The rows and abduction were fine. PT-OP-J Posture/Palpation/Skin Start: 09/11/20 14:43 Freq: Status: Active Protocol: Document 09/18/20 12:59 MB (Rec: 09/18/20 15:52 MB [id number]) Posture Evaluation Comments Posture Comments Standing posture: pt does allow her right arm to dangle by her side: forward head, rounded shoulders, increased thoracic kyphosis, increased lumbar lordosis, right upper thoracic spine and scapula are tight with mildly protracted right scapula, mild upper thoracic convexity to the right. Skin Assessment Other Assessments Skin Assessment Comments Right shoulder arthroscopic scars healing well and no edema or ecchymosis, fascial tension over right posterior delt and triceps and pt states that graft had a pulling effect PT-OP-K Range of Motion Start: 09/11/20 14:43 Freq: Status: Active Protocol: Document 09/18/20 12:59 MB (Rec: 09/18/20 15:52 MB [id number]) Cervical Spine Range of Motion Cervical Spine Active Testing Position Standing Flexion 43 Extension 35 Rotation Left 54 Rotation Right 56 Shoulder Goniometric Range of Motion Shoulder Right Shoulder ROM WFL No Testing Position Standing and supine Comments PROM: in standing flexion to 40 deg and abduction to 25 deg and pt does not perform active assistance. In supine: flexion to 80 deg and abduction to 73 deg. With shoulder in 73 deg abduction, ER 0 deg and IR 5 deg Left Shoulder ROM WFL Yes Testing Position Standing Shoulder ROM Limitations Comments Guarding and post-op limitations PT-OP-M Strength Start: 09/11/20 14:43 Freq: Status: Active Protocol: Document 09/18/20 12:59 MB (Rec: 09/18/20 15:52 MB [id number]) Shoulder Strength Shoulder Manual Muscle Testing Left Flexion 5 Normal Abduction (C5) 5 Normal External Rotation 5 Normal Internal Rotation 5 Normal Right Comments MMT deferred post-op 6 weeks Elbow/Forearm Strength Elbow and Forearm Manual Muscle Testing Left Flexion (C6) 5 Normal Extension (C7) 5 Normal Pronation 5 Normal Supination 5 Normal Right Comments MMT deferred post-op Wrist Strength Wrist Manual Muscle Testing Left Flexion (C7) 5 Normal Extension (C6) 5 Normal Right Comments MMT deferred post-op d/t pt guarding PT-OP-Q Treatments Start: 09/11/20 14:43 Freq: Status: Active Protocol: Document 10/06/20 09:02 MB (Rec: 10/06/20 09:54 MB [id number]) Therapeutic Exercises Supine Exercises AAROM abduction Supine Exercise Name Abduction, ER and flexion today Side right Equipment Used Cane and 6 foam roller Comments 10 reps slowly Sitting Exercises Felicity Sitting Exercise Name Left hand assisting Side right Comments Pt performs flexion, scaption, abduction with arm straight and bent Manual Therapy Treatment Other Other Manual Treatments Pt prone: rib recoil and PA thoracic mobs with pt performing coordinated breathing, right scapular mobs , PROM right ER and IR shoulder and grade II-III capsule mobs with shoulder in gentle IR Pt supine: MWM and STM right pect major with pt's right arm in ER PT-OP-R Modalities Start: 09/11/20 14:43 Freq: Status: Active Protocol: Document 09/22/20 12:19 SP (Rec: 09/22/20 13:09 SP [id number]) Hot Pack/Cold Pack Treatment cryocuf Location R shld Patient Position Sitting Treatment Duration (minutes) 10 Patient Tolerance Good PT-OP-T Assessment and Plan Start: 09/11/20 14:43 Freq: Status: Active Protocol: Document 10/06/20 09:02 MB (Rec: 10/06/20 09:54 MB [id number]) Physical Therapy Assessment Rehab Potential Rehabilitation Potential Good Evaluation Complexity Number of Personal Factors/Comorbidities 1-2 Number of Body Systems Impaired 1-2 Clinical Presentation at Evaluation Stable Impairments Impairments Activity Tolerance,Balance, Coordination,Functional Activities,Functional Mobility ,Gait,Posture,ROM,Soft Tissue Mobility,Strength Other Impairments Pt denies pain. She reports she has been guarded her right arm a lot and this may be a barrier to PT. Body systems affected include musculoskeletal and neuromuscular. Her clinical presentation is stable. Goals 5 Senior Care Goal (LTG) Pt will perform progressive HEP with I including ROM, strengthening, postural, core and balance exercises to improve function by 11/19/20. LTG Duration 8 weeks 4 Senior Care Goal (LTG) Pt will be able to return to gardening for 20 minutes by 11/19/20. LTG Duration 8 weeks 3 Senior Care Goal (LTG) Pt will be able to perform spinning yarn and knitting without pain by 11/19/20. LTG Duration 8 weeks 2 [employer] Goal (LTG) Pt will present with improved right shoulder AROM to at least 120 deg flexion and 100 deg abduction to improve functional use of arm by . LTG Duration 8 weeks 1 Fl[employer] Goal (LTG) Pt will present with an improved QuickDASH score to reflect no more than 20% impairment to improve ADLs and IADLs by 11/19/20. LTG Duration 8 weeks Assessment Summary Assessment Progressed felicity today and pt to consider for home. Also performed manual work. Physical Therapy Plan Frequency and Duration Frequency of Treatment 2x/Week Duration of Treatment 8 weeks Plan of Care Start Date 09/18/20 Plan of Care End Date 11/19/20 Therapeutic Interventions Therapeutic Interventions Balance Training,Canalithic Repositioning,Gait Training, Home Exercise Program,Joint Mobilizations,Manual Therapy, Neuromuscular Re-education, Orthotic/Prosthetic Management ,Patient/Caregiver Education, Self-Care/Home Management,Soft Tissue Mobilization,Taping, Therapeutic Activities, Therapeutic Exercises Modalities Cold Pack/Ice Massage,Electric Stimulation,Hot Packs, Ultrasound Next Visit Focus/Plan Next Note Type Treatment Note Next Visit Plan Ongoing manual work including thoracic mobility, consider Counterstrain and Buteyko breathing.
--- NOTE | 2020-10-13 14:30 | PT.OTN ---
Current Diagnoses Complete rotator cuff tear or rupture of right shoulder, not specified as traumatic (10/13/20) Physical Therapy Treatment Note PT-OP-A Visit Information Start: 09/11/20 14:43 Freq: Status: Active Protocol: Document 10/13/20 13:47 SP (Rec: 10/13/20 14:31 SP [id number]) Out-Patient Physical Therapy Visit Information Visit Information Visit Type Treatment Note Visit Start Time 13:47 Visit Stop Time 14:30 Total Visit Minutes 43 Visit Number 7 Number of MEDICAL FEE CLERK Visits 1 Evaluation Information Evaluation Date 09/18/20 Precautions Precautions No specific protocol yet arrived PT-OP-B Current Condition Start: 09/11/20 14:43 Freq: Status: Active Protocol: Document 09/18/20 12:59 MB (Rec: 09/18/20 13:15 MB [id number]) Current Condition History of Current Condition Onset Date 08/07/20 Current Complaints Inability to use right arm much post-op History of Current Condition Pt underwent right shoulder arthroscopic surgery on with op report stating right bicep and subscapularis repairs and extensive debridement with grafting technique. Pt's surgeon is in [place]. She just moved up to [place]. Pt is right handed. She has just gotten back in the bed and is trying to lie flatter with sleeping. Pt denies numbness and tingling and pain. PMH includes: left rotator cuff surgery 7 years ago and PT Prior Treatments and Tests Left shoulder surgery and PT, PT for left hamstrings and achilles problems Treatment Goals Patient/Caregiver Goals To learn how to use her arm safely PT-OP-C Subjective Start: 09/11/20 14:43 Freq: Status: Active Protocol: Document 10/13/20 13:47 SP (Rec: 10/13/20 14:31 SP [id number]) OP-PT Subjective Patient Comments Patient Comments Pt stated R shld little upset due to got involved in shoveling couple days ago when gardening, not big range and tried to keep R arm as side but muscles still tightened up , so haven't performed her exercises lately. Was feeling pain more over R anterior AC jt and down into deltoid but is feeling little better today . PT-OP-J Posture/Palpation/Skin Start: 09/11/20 14:43 Freq: Status: Active Protocol: Document 09/18/20 12:59 MB (Rec: 09/18/20 15:52 MB [id number]) Posture Evaluation Comments Posture Comments Standing posture: pt does allow her right arm to dangle by her side: forward head, rounded shoulders, increased thoracic kyphosis, increased lumbar lordosis, right upper thoracic spine and scapula are tight with mildly protracted right scapula, mild upper thoracic convexity to the right. Skin Assessment Other Assessments Skin Assessment Comments Right shoulder arthroscopic scars healing well and no edema or ecchymosis, fascial tension over right posterior delt and triceps and pt states that graft had a pulling effect PT-OP-K Range of Motion Start: 09/11/20 14:43 Freq: Status: Active Protocol: Document 09/18/20 12:59 MB (Rec: 09/18/20 15:52 MB [id number]) Cervical Spine Range of Motion Cervical Spine Active Testing Position Standing Flexion 43 Extension 35 Rotation Left 54 Rotation Right 56 Shoulder Goniometric Range of Motion Shoulder Right Shoulder ROM WFL No Testing Position Standing and supine Comments PROM: in standing flexion to 40 deg and abduction to 25 deg and pt does not perform active assistance. In supine: flexion to 80 deg and abduction to 73 deg. With shoulder in 73 deg abduction, ER 0 deg and IR 5 deg Left Shoulder ROM WFL Yes Testing Position Standing Shoulder ROM Limitations Comments Guarding and post-op limitations PT-OP-M Strength Start: 09/11/20 14:43 Freq: Status: Active Protocol: Document 09/18/20 12:59 MB (Rec: 09/18/20 15:52 MB [id number]) Shoulder Strength Shoulder Manual Muscle Testing Left Flexion 5 Normal Abduction (C5) 5 Normal External Rotation 5 Normal Internal Rotation 5 Normal Right Comments MMT deferred post-op 6 weeks Elbow/Forearm Strength Elbow and Forearm Manual Muscle Testing Left Flexion (C6) 5 Normal Extension (C7) 5 Normal Pronation 5 Normal Supination 5 Normal Right Comments MMT deferred post-op Wrist Strength Wrist Manual Muscle Testing Left Flexion (C7) 5 Normal Extension (C6) 5 Normal Right Comments MMT deferred post-op d/t pt guarding PT-OP-Q Treatments Start: 09/11/20 14:43 Freq: Status: Active Protocol: Document 10/13/20 13:47 SP (Rec: 10/13/20 14:31 SP [email or web address]) Therapeutic Exercises Supine Exercises AAROM dowel ABD Side right Equipment Used dowel Reps/Minutes 73 deg Comments x3 reps painfree range AAROM abduction Supine Exercise Name Abduction, ER and flexion today Side right Equipment Used Cane and 6 foam roller Comments 10 reps slowly Rshld ER AROM Side right Resistance AAROM Reps/Minutes x5 Comments 73 deg tolerant range, cued scap stab AAROM dowel ER Side right Reps/Minutes 59 deg Comments x3 painfree range AAROM dowel FF Side right Equipment Used dowel Reps/Minutes 152 deg Comments x10 reps painfree range Sitting Exercises Zulma Sitting Exercise Name Left hand assisting: FF, ABD, scaption: elbow straight Side right Resistance added to HEP Equipment Used mirror for self feedback scap depression awareness for decrease UT recruit Reps/Minutes x10 reps each Comments painfree range, good feedback response scap retraction Sitting Exercise Name performed standing today Side bilateral Reps/Minutes 5 sec hold x10 Comments good feedback response, cued CS chin tuck neutral Standing Exercises wall walk Standing Exercise Name R shld- FF only Reps/Minutes x3 Comments cued scap depress, no UT recruitment- tiring sore Pendulum Side right Comments good feedback response PT-OP-R Modalities Start: 09/11/20 14:43 Freq: Status: Active Protocol: Document 10/13/20 13:47 SP (Rec: 10/13/20 14:31 SP [email or web address]) Hot Pack/Cold Pack Treatment cryocuf Location R shld Patient Position Sitting Treatment Duration (minutes) 10 Patient Tolerance Good PT-OP-T Assessment and Plan Start: 09/11/20 14:43 Freq: Status: Active Protocol: Document 10/13/20 13:47 SP (Rec: 10/13/20 14:31 SP [email or web address]) Physical Therapy Assessment Goals 5 Alf Goal (LTG) Pt will perform progressive HEP with I including ROM, strengthening, postural, core and balance exercises to improve function by 11/19/20. LTG Duration 8 weeks 4 Alf Goal (LTG) Pt will be able to return to gardening for 20 minutes by 11/19/20. LTG Duration 8 weeks 3 Multimedia Authoring Specialist Goal (LTG) Pt will be able to perform spinning yarn and knitting without pain by 11/19/20. LTG Duration 8 weeks 2 Alf Goal (LTG) Pt will present with improved right shoulder AROM to at least 120 deg flexion and 100 deg abduction to improve functional use of arm by . LTG Duration 8 weeks 1 Alf Goal (LTG) Pt will present with an improved QuickDASH score to reflect no more than 20% impairment to improve ADLs and IADLs by 11/19/20. LTG Duration 8 weeks Progress Towards Goals Progress Towards Goals Progressing Toward Goals Progress Comments Pt is making gains in painfree P- AAROM dispite set back shoveling recently. Assessment Summary Assessment Pt making gains in AAROM using dowel supine and added pulleys today with cues for awareness of no UT recruitment : FF 152deg, 73deg ABD, 59 deg ER painfree range. Pt states knows now to hold off RUE lifting after shoveling recently and slowly recoverying, therapy focused on AAROM w/out over pressure. Responded well to manual, HEP review with no adverse affects, agreeable to cold modality end of tx for little soreness post ther ex. Physical Therapy Plan Frequency and Duration Frequency of Treatment 2x/Week Duration of Treatment 8 weeks Plan of Care Start Date 09/18/20 Plan of Care End Date 11/19/20 Therapeutic Interventions Therapeutic Interventions Balance Training,Canalithic Repositioning,Gait Training, Home Exercise Program,Joint Mobilizations,Manual Therapy, Neuromuscular Re-education, Orthotic/Prosthetic Management ,Patient/Caregiver Education, Self-Care/Home Management,Soft Tissue Mobilization,Taping, Therapeutic Activities, Therapeutic Exercises Modalities Cold Pack/Ice Massage,Electric Stimulation,Hot Packs, Ultrasound Next Visit Focus/Plan Next Note Type Treatment Note Next Visit Plan Assess response to added pulleys, wall walking and dowel AAROM this tx in painfree ROM. PT POC: Ongoing manual work including thoracic mobility, AAROM, consider Counterstrain and Buteyko breathing.
--- NOTE | 2020-10-23 11:25 | PT-OP ANOTE ---
PT calls Mer Crane PA-C office at number pt provides to PT: [phone] and speaks with Harmeet. PT requests updated post-op shoulder protocol. Harmeet states that he will speak with provider and agrees to fax to this clinic to number provided by this therapist. Per pt, Mer's fax number is [phone]. PT has emailed the help desk, immediate excellence manager and front office staff with this updated provider info.
--- NOTE | 2020-10-23 12:25 | PT.OTN ---
Current Diagnoses Complete rotator cuff tear or rupture of right shoulder, not specified as traumatic (10/23/20) Physical Therapy Treatment Note PT-OP-A Visit Information Start: 09/11/20 14:43 Freq: Status: Active Protocol: Document 10/23/20 10:46 MB (Rec: 10/23/20 11:24 MB [id number]) Out-Patient Physical Therapy Visit Information Visit Information Visit Type Treatment Note Visit Start Time 10:46 Visit Stop Time 11:15 Total Visit Minutes 29 Visit Number 8 Precautions Precautions Protocol has not yet arrived PT-OP-B Current Condition Start: 09/11/20 14:43 Freq: Status: Active Protocol: Document 09/18/20 12:59 MB (Rec: 09/18/20 13:15 MB [id number]) Current Condition History of Current Condition Onset Date 08/07/20 Current Complaints Inability to use right arm much post-op History of Current Condition Pt underwent right shoulder arthroscopic surgery on with op report stating right bicep and subscapularis repairs and extensive debridement with grafting technique. Pt's surgeon is in [place]. She just moved up to [place]. Pt is right handed. She has just gotten back in the bed and is trying to lie flatter with sleeping. Pt denies numbness and tingling and pain. PMH includes: left rotator cuff surgery 7 years ago and PT Prior Treatments and Tests Left shoulder surgery and PT, PT for left hamstrings and achilles problems Treatment Goals Patient/Caregiver Goals To learn how to use her arm safely PT-OP-C Subjective Start: 09/11/20 14:43 Freq: Status: Active Protocol: Document 10/23/20 10:46 MB (Rec: 10/23/20 11:24 MB [id number]) OP-PT Subjective Patient Comments Patient Comments Pt states that the provider states that she has never gotten any notes or message from this PT. PT did speak with someone from provider's office several weeks ago and so PT does communicate that some of the miscommunication is happening on the provider's end. Provider said that she will send a protocol. PT-OP-J Posture/Palpation/Skin Start: 09/11/20 14:43 Freq: Status: Active Protocol: Document 09/18/20 12:59 MB (Rec: 09/18/20 15:52 MB [id number]) Posture Evaluation Comments Posture Comments Standing posture: pt does allow her right arm to dangle by her side: forward head, rounded shoulders, increased thoracic kyphosis, increased lumbar lordosis, right upper thoracic spine and scapula are tight with mildly protracted right scapula, mild upper thoracic convexity to the right. Skin Assessment Other Assessments Skin Assessment Comments Right shoulder arthroscopic scars healing well and no edema or ecchymosis, fascial tension over right posterior delt and triceps and pt states that graft had a pulling effect PT-OP-K Range of Motion Start: 09/11/20 14:43 Freq: Status: Active Protocol: Document 09/18/20 12:59 MB (Rec: 09/18/20 15:52 MB [id number]) Cervical Spine Range of Motion Cervical Spine Active Testing Position Standing Flexion 43 Extension 35 Rotation Left 54 Rotation Right 56 Shoulder Goniometric Range of Motion Shoulder Right Shoulder ROM WFL No Testing Position Standing and supine Comments PROM: in standing flexion to 40 deg and abduction to 25 deg and pt does not perform active assistance. In supine: flexion to 80 deg and abduction to 73 deg. With shoulder in 73 deg abduction, ER 0 deg and IR 5 deg Left Shoulder ROM WFL Yes Testing Position Standing Shoulder ROM Limitations Comments Guarding and post-op limitations PT-OP-M Strength Start: 09/11/20 14:43 Freq: Status: Active Protocol: Document 09/18/20 12:59 MB (Rec: 09/18/20 15:52 MB [id number]) Shoulder Strength Shoulder Manual Muscle Testing Left Flexion 5 Normal Abduction (C5) 5 Normal External Rotation 5 Normal Internal Rotation 5 Normal Right Comments MMT deferred post-op 6 weeks Elbow/Forearm Strength Elbow and Forearm Manual Muscle Testing Left Flexion (C6) 5 Normal Extension (C7) 5 Normal Pronation 5 Normal Supination 5 Normal Right Comments MMT deferred post-op Wrist Strength Wrist Manual Muscle Testing Left Flexion (C7) 5 Normal Extension (C6) 5 Normal Right Comments MMT deferred post-op d/t pt guarding PT-OP-Q Treatments Start: 09/11/20 14:43 Freq: Status: Active Protocol: Document 10/23/20 10:46 MB (Rec: 10/23/20 12:25 MB [id number]) Manual Therapy Treatment Other Other Manual Treatments Pt prone: right greater than left scapular mobs. R shoulder in ER and IR and grade II posterior capsule mobs to pt tolerance, gently. Gentle PROM right shoulder ER and IR. Pt supine: mobs right ribs intrascapular area, PROM flexion and abduction, left first rib isometric, positional release right pect PT-OP-R Modalities Start: 09/11/20 14:43 Freq: Status: Active Protocol: Document 10/13/20 13:47 SP (Rec: 10/13/20 14:31 SP [id number]) Hot Pack/Cold Pack Treatment cryocuf Location R shld Patient Position Sitting Treatment Duration (minutes) 10 Patient Tolerance Good PT-OP-T Assessment and Plan Start: 09/11/20 14:43 Freq: Status: Active Protocol: Document 10/23/20 10:46 MB (Rec: 10/23/20 11:24 MB [id number]) Physical Therapy Assessment Rehab Potential Rehabilitation Potential Good Evaluation Complexity Number of Personal Factors/Comorbidities 1-2 Number of Body Systems Impaired 1-2 Clinical Presentation at Evaluation Stable Impairments Impairments Activity Tolerance,Balance, Coordination,Functional Activities,Functional Mobility ,Gait,Posture,ROM,Soft Tissue Mobility,Strength Other Impairments Pt denies pain. She reports she has been guarded her right arm a lot and this may be a barrier to PT. Body systems affected include musculoskeletal and neuromuscular. Her clinical presentation is stable. Goals 5 Pull Out Operator Goal (LTG) Pt will perform progressive HEP with I including ROM, strengthening, postural, core and balance exercises to improve function by 11/19/20. LTG Duration 8 weeks 4 Pull Out Operator Goal (LTG) Pt will be able to return to gardening for 20 minutes by 11/19/20. LTG Duration 8 weeks 3 Pull Out Operator Goal (LTG) Pt will be able to perform spinning yarn and knitting without pain by 11/19/20. LTG Duration 8 weeks 2 Pull Out Operator Goal (LTG) Pt will present with improved right shoulder AROM to at least 120 deg flexion and 100 deg abduction to improve functional use of arm by . LTG Duration 8 weeks 1 Longterm Goal (LTG) Pt will present with an improved QuickDASH score to reflect no more than 20% impairment to improve ADLs and IADLs by 11/19/20. LTG Duration 8 weeks Assessment Summary Assessment Protocol has still not been received and PT calls Mer Crane's office number with the number pt provides while pt is still in clinic today. PT speaks with Harmeet and requests protocol and PT provides fax number. Manual work today. Con't progression when protocol received. This has been a barrier to PT. Physical Therapy Plan Frequency and Duration Frequency of Treatment 2x/Week Duration of Treatment 8 weeks Plan of Care Start Date 09/18/20 Plan of Care End Date 11/19/20 Therapeutic Interventions Therapeutic Interventions Balance Training,Canalithic Repositioning,Gait Training, Home Exercise Program,Joint Mobilizations,Manual Therapy, Neuromuscular Re-education, Orthotic/Prosthetic Management ,Patient/Caregiver Education, Self-Care/Home Management,Soft Tissue Mobilization,Taping, Therapeutic Activities, Therapeutic Exercises Modalities Cold Pack/Ice Massage,Electric Stimulation,Hot Packs, Ultrasound Next Visit Focus/Plan Next Note Type Treatment Note Next Visit Plan Progress AROM when cleared by provider. Ongoing manual work including thoracic mobility, consider Counterstrain and B[place]yko breathing.
--- NOTE | 2020-10-27 11:13 | PT.OTN ---
Current Diagnoses Complete rotator cuff tear or rupture of right shoulder, not specified as traumatic (10/27/20) Physical Therapy Treatment Note PT-OP-A Visit Information Start: 09/11/20 14:43 Freq: Status: Active Protocol: Document 10/27/20 10:31 MB (Rec: 10/27/20 11:13 MB [id number]) Out-Patient Physical Therapy Visit Information Visit Information Visit Type Treatment Note Visit Start Time 10:31 Visit Stop Time 11:12 Total Visit Minutes 41 Visit Number 9 Precautions Precautions Pt underwent arthroscopic surgery right shoulder with grafting on 08/07/20. Received provider note that states continue gentle strengthening with PT and HEP as directed. AM discussed including heavy lifting, weighted overhead activities and anything with susceptible abrupt stops/jolts . PT-OP-B Current Condition Start: 09/11/20 14:43 Freq: Status: Active Protocol: Document 09/18/20 12:59 MB (Rec: 09/18/20 13:15 MB [id number]) Current Condition History of Current Condition Onset Date 08/07/20 Current Complaints Inability to use right arm much post-op History of Current Condition Pt underwent right shoulder arthroscopic surgery on with op report stating right bicep and subscapularis repairs and extensive debridement with grafting technique. Pt's surgeon is in [place]. She just moved up to [place]. Pt is right handed. She has just gotten back in the bed and is trying to lie flatter with sleeping. Pt denies numbness and tingling and pain. PMH includes: left rotator cuff surgery 7 years ago and PT Prior Treatments and Tests Left shoulder surgery and PT, PT for left hamstrings and achilles problems Treatment Goals Patient/Caregiver Goals To learn how to use her arm safely PT-OP-C Subjective Start: 09/11/20 14:43 Freq: Status: Active Protocol: Document 10/27/20 10:31 MB (Rec: 10/27/20 11:13 MB [id number]) OP-PT Subjective Patient Comments Patient Comments Pt states that she doing well. She is leaving for [place] on Monday and will be gone a little over a week. PT-OP-J Posture/Palpation/Skin Start: 09/11/20 14:43 Freq: Status: Active Protocol: Document 09/18/20 12:59 MB (Rec: 09/18/20 15:52 MB [id number]) Posture Evaluation Comments Posture Comments Standing posture: pt does allow her right arm to dangle by her side: forward head, rounded shoulders, increased thoracic kyphosis, increased lumbar lordosis, right upper thoracic spine and scapula are tight with mildly protracted right scapula, mild upper thoracic convexity to the right. Skin Assessment Other Assessments Skin Assessment Comments Right shoulder arthroscopic scars healing well and no edema or ecchymosis, fascial tension over right posterior delt and triceps and pt states that graft had a pulling effect PT-OP-K Range of Motion Start: 09/11/20 14:43 Freq: Status: Active Protocol: Document 09/18/20 12:59 MB (Rec: 09/18/20 15:52 MB [id number]) Cervical Spine Range of Motion Cervical Spine Active Testing Position Standing Flexion 43 Extension 35 Rotation Left 54 Rotation Right 56 Shoulder Goniometric Range of Motion Shoulder Right Shoulder ROM WFL No Testing Position Standing and supine Comments PROM: in standing flexion to 40 deg and abduction to 25 deg and pt does not perform active assistance. In supine: flexion to 80 deg and abduction to 73 deg. With shoulder in 73 deg abduction, ER 0 deg and IR 5 deg Left Shoulder ROM WFL Yes Testing Position Standing Shoulder ROM Limitations Comments Guarding and post-op limitations PT-OP-M Strength Start: 09/11/20 14:43 Freq: Status: Active Protocol: Document 09/18/20 12:59 MB (Rec: 09/18/20 15:52 MB [id number]) Shoulder Strength Shoulder Manual Muscle Testing Left Flexion 5 Normal Abduction (C5) 5 Normal External Rotation 5 Normal Internal Rotation 5 Normal Right Comments MMT deferred post-op 6 weeks Elbow/Forearm Strength Elbow and Forearm Manual Muscle Testing Left Flexion (C6) 5 Normal Extension (C7) 5 Normal Pronation 5 Normal Supination 5 Normal Right Comments MMT deferred post-op Wrist Strength Wrist Manual Muscle Testing Left Flexion (C7) 5 Normal Extension (C6) 5 Normal Right Comments MMT deferred post-op d/t pt guarding PT-OP-Q Treatments Start: 09/11/20 14:43 Freq: Status: Active Protocol: Document 10/27/20 10:31 MB (Rec: 10/27/20 11:13 MB [id number]) Cardio Equipment Upper Body Ergometer (UBE) Duration (Minutes) 10 Other 1' forward and 1' backward Therapeutic Exercises Supine Exercises Chicken stretch Side bilateral Equipment Used Pt lying over 6 foam roller Comments 10 reps, hands behind head Posterior capsule stretch Side bilateral Reps/Minutes Pt lying over 6 foam roller Comments 20 sec hold each Pect stretch Side bilateral Equipment Used Pt lying over 6 foam roller Comments Move into after AROM ER Exercises over 6 foam roller Supine Exercise Name AROM flexion, abduction, ER Side bilateral Equipment Used Pt lying on 6 foam roller Comments 10 reps Standing Exercises IR stretch with towel Side right Comments Resisted isometric end-range PT-OP-R Modalities Start: 09/11/20 14:43 Freq: Status: Active Protocol: Document 10/13/20 13:47 SP (Rec: 10/13/20 14:31 SP [id number]) Hot Pack/Cold Pack Treatment cryocuf Location R shld Patient Position Sitting Treatment Duration (minutes) 10 Patient Tolerance Good PT-OP-T Assessment and Plan Start: 09/11/20 14:43 Freq: Status: Active Protocol: Document 10/27/20 10:31 MB (Rec: 10/27/20 11:13 MB [id number]) Physical Therapy Assessment Rehab Potential Rehabilitation Potential Good Evaluation Complexity Number of Personal Factors/Comorbidities 1-2 Number of Body Systems Impaired 1-2 Clinical Presentation at Evaluation Stable Impairments Impairments Activity Tolerance,Balance, Coordination,Functional Activities,Functional Mobility ,Gait,Posture,ROM,Soft Tissue Mobility,Strength Other Impairments Pt denies pain. She reports she has been guarded her right arm a lot and this may be a barrier to PT. Body systems affected include musculoskeletal and neuromuscular. Her clinical presentation is stable. Goals 5 Group Home Goal (LTG) Pt will perform progressive HEP with I including ROM, strengthening, postural, core and balance exercises to improve function by 11/19/20. LTG Duration 8 weeks 4 Group Home Goal (LTG) Pt will be able to return to gardening for 20 minutes by 11/19/20. LTG Duration 8 weeks 3 Tilt Tray Driver Goal (LTG) Pt will be able to perform spinning yarn and knitting without pain by 11/19/20. LTG Duration 8 weeks 2 Group Home Goal (LTG) Pt will present with improved right shoulder AROM to at least 120 deg flexion and 100 deg abduction to improve functional use of arm by . LTG Duration 8 weeks 1 Tilt Tray Driver Goal (LTG) Pt will present with an improved QuickDASH score to reflect no more than 20% impairment to improve ADLs and IADLs by 11/19/20. LTG Duration 8 weeks Assessment Summary Assessment Received note to con't gentle strengthening with PT. Progressed AROM and flexibility exercises today. Pt had discomfort with PNF and so will not add to HEP today- -pt will be changing to AROM right shoulder over foam roller rather than AAROM with cane. Physical Therapy Plan Frequency and Duration Frequency of Treatment 2x/Week Duration of Treatment 8 weeks Plan of Care Start Date 09/18/20 Plan of Care End Date 11/19/20 Therapeutic Interventions Therapeutic Interventions Balance Training,Canalithic Repositioning,Gait Training, Home Exercise Program,Joint Mobilizations,Manual Therapy, Neuromuscular Re-education, Orthotic/Prosthetic Management ,Patient/Caregiver Education, Self-Care/Home Management,Soft Tissue Mobilization,Taping, Therapeutic Activities, Therapeutic Exercises Modalities Cold Pack/Ice Massage,Electric Stimulation,Hot Packs, Ultrasound Next Visit Focus/Plan Next Note Type Progress Note
--- NOTE | 2020-11-13 13:34 | PT.OPPOC ---
Physical, Occupational & Speech Therapy At [facility] Current Diagnoses Complete rotator cuff tear or rupture of right shoulder, not specified as traumatic (11/13/20) Visit Care Team Role Provider Type Referring Provider Specialty: Address: Phone: Fax: Email: Other Providers Specialty: Address: Phone: Fax: Email: Mer Crane PA-C Attending Provider Non-Staff Primary Care Provider Specialty: Medical [facility]: [facility] [address] [place], [address] Email: Plan Of Care PT-OP-T Assessment and Plan Start: 09/11/20 14:43 Freq: Status: Active Protocol: Document 11/13/20 12:10 MB (Rec: 11/13/20 12:47 MB [id number]) Physical Therapy Assessment Rehab Potential Rehabilitation Potential Good Evaluation Complexity Number of Personal Factors/Comorbidities 1-2 Number of Body Systems Impaired 1-2 Clinical Presentation at Evaluation Stable Impairments Impairments Activity Tolerance,Balance, Coordination,Functional Activities,Functional Mobility ,Gait,Posture,ROM,Soft Tissue Mobility,Strength Other Impairments Pt denies pain. She reports she has been guarded her right arm a lot and this may be a barrier to PT. Body systems affected include musculoskeletal and neuromuscular. Her clinical presentation is stable. Goals 6 Flow Machine Operator Goal (LTG) Pt will be able to lift a kettle full of water to allow return to clara by 01/13/21. LTG Duration 8 weeks 5 Flow Machine Operator Goal (LTG) Pt will perform progressive HEP with I including ROM, strengthening, postural, core and balance exercises to improve function by 01/13/21. 12/14/20: Pt is performing exercises over pool noodle including AROM exercises and posterior capsule stretch LTG Duration 8 weeks 4 Half-Way Goal (LTG) Pt will be able to return to gardening for 20 minutes by . 11/13/20: Pt has been back to pulling weeds but cannot dig LTG Duration 8 weeks 3 Flow Machine Operator Goal (LTG) Pt will be able to perform spinning yarn and knitting without pain by 01/13/21. 11/13/20: Pt has not yet spinned yarn or knitted LTG Duration 8 weeks 2 Half-Way Goal (LTG) Pt will present with improved right shoulder AROM to at least 120 deg flexion and 100 deg abduction to improve functional use of arm by . 11/13/20: AROM flexion right is 160 deg and left is 170 deg; abduction left 160 deg and right 170 deg; left shoulder IR with index finger to T5, right shoulder IR to T10. AROM extension to at least 60 deg both arms. PROM left shoulder in 90/90 ER to 80 and IR to 60 deg, moves easily. Right shoulder in 90/90 ER 62 deg, IR 42 deg. LTG Duration Met 1 Half-Way Goal (LTG) Pt will present with an improved QuickDASH score to reflect no more than 20% impairment to improve ADLs and IADLs by 01/13/21. 11/13/20: QuickDASH score reflects 45.25% impairment LTG Duration 8 weeks Assessment Summary Assessment Pt reports right forearm tingling after using arm bike today. This occ occurs with her right elbow bent. She reports decreased ER with chicken stretch and discomfort right proximal arm where grafting area is and where she has a lot of fascial tightness. Will con't to work on this area. Pt's AROM right shoulder is drastically improved and she is performing exercises. Her QuickDASH score is much improved. She can don shirts and her bra. She will benefit from further PT progression to improve range, posture and strength. Physical Therapy Plan Frequency and Duration Frequency of Treatment 2x/Week Duration of Treatment 8 weeks Plan of Care Start Date 11/13/20 Plan of Care End Date 01/13/21 Therapeutic Interventions Therapeutic Interventions Balance Training,Canalithic Repositioning,Gait Training, Home Exercise Program,Joint Mobilizations,Manual Therapy, Neuromuscular Re-education, Orthotic/Prosthetic Management ,Patient/Caregiver Education, Self-Care/Home Management,Soft Tissue Mobilization,Taping, Therapeutic Activities, Therapeutic Exercises Modalities Cold Pack/Ice Massage,Electric Stimulation,Hot Packs, Ultrasound Next Visit Focus/Plan Next Note Type Treatment Note Next Visit Plan Progress exercises Plan of Care Dates Plan of Care Start Date 11/13/20 Plan of Care End Date 01/13/21 Electronically Signed by: Aminah Malik, PT 11/13/20 [id number] Please Sign and Return: I have reviewed this Plan of Care and certify that the skilled therapy services above are required to meet the patient?s needs. Physician Signature Date Printed Name and Credentials Clinical Instructor Signature Printed Name and Credentials
--- NOTE | 2020-11-13 13:35 | PT.OTN ---
Current Diagnoses Complete rotator cuff tear or rupture of right shoulder, not specified as traumatic (11/13/20) Physical Therapy Treatment Note PT-OP-A Visit Information Start: 09/11/20 14:43 Freq: Status: Active Protocol: Document 11/13/20 12:10 MB (Rec: 11/13/20 12:47 MB [id number]) Out-Patient Physical Therapy Visit Information Visit Information Visit Type Progress Note Visit Start Time 12:10 Visit Stop Time 12:45 Total Visit Minutes 35 Visit Number 10 Precautions Precautions Pt underwent arthroscopic surgery right shoulder with grafting on 08/07/20. Received provider note that states continue gentle strengthening with PT and HEP as directed. AM discussed including heavy lifting, weighted overhead activities and anything with susceptible abrupt stops/jolts . PT-OP-B Current Condition Start: 09/11/20 14:43 Freq: Status: Active Protocol: Document 09/18/20 12:59 MB (Rec: 09/18/20 13:15 MB [id number]) Current Condition History of Current Condition Onset Date 08/07/20 Current Complaints Inability to use right arm much post-op History of Current Condition Pt underwent right shoulder arthroscopic surgery on with op report stating right bicep and subscapularis repairs and extensive debridement with grafting technique. Pt's surgeon is in [place]. She just moved up to [place]. Pt is right handed. She has just gotten back in the bed and is trying to lie flatter with sleeping. Pt denies numbness and tingling and pain. PMH includes: left rotator cuff surgery 7 years ago and PT Prior Treatments and Tests Left shoulder surgery and PT, PT for left hamstrings and achilles problems Treatment Goals Patient/Caregiver Goals To learn how to use her arm safely PT-OP-C Subjective Start: 09/11/20 14:43 Freq: Status: Active Protocol: Document 11/13/20 12:10 MB (Rec: 11/13/20 12:47 MB [id number]) OP-PT Subjective Patient Comments Patient Comments Driving to [place] was interesting. She rested her right arm on the console. She is mostly feeling the most discomfort in the biceps area. Everything else is going swimmingly. PT-OP-J Posture/Palpation/Skin Start: 09/11/20 14:43 Freq: Status: Active Protocol: Document 09/18/20 12:59 MB (Rec: 09/18/20 15:52 MB [id number]) Posture Evaluation Comments Posture Comments Standing posture: pt does allow her right arm to dangle by her side: forward head, rounded shoulders, increased thoracic kyphosis, increased lumbar lordosis, right upper thoracic spine and scapula are tight with mildly protracted right scapula, mild upper thoracic convexity to the right. Skin Assessment Other Assessments Skin Assessment Comments Right shoulder arthroscopic scars healing well and no edema or ecchymosis, fascial tension over right posterior delt and triceps and pt states that graft had a pulling effect PT-OP-K Range of Motion Start: 09/11/20 14:43 Freq: Status: Active Protocol: Document 09/18/20 12:59 MB (Rec: 09/18/20 15:52 MB [id number]) Cervical Spine Range of Motion Cervical Spine Active Testing Position Standing Flexion 43 Extension 35 Rotation Left 54 Rotation Right 56 Shoulder Goniometric Range of Motion Shoulder Right Shoulder ROM WFL No Testing Position Standing and supine Comments PROM: in standing flexion to 40 deg and abduction to 25 deg and pt does not perform active assistance. In supine: flexion to 80 deg and abduction to 73 deg. With shoulder in 73 deg abduction, ER 0 deg and IR 5 deg Left Shoulder ROM WFL Yes Testing Position Standing Shoulder ROM Limitations Comments Guarding and post-op limitations PT-OP-M Strength Start: 09/11/20 14:43 Freq: Status: Active Protocol: Document 09/18/20 12:59 MB (Rec: 09/18/20 15:52 MB [id number]) Shoulder Strength Shoulder Manual Muscle Testing Left Flexion 5 Normal Abduction (C5) 5 Normal External Rotation 5 Normal Internal Rotation 5 Normal Right Comments MMT deferred post-op 6 weeks Elbow/Forearm Strength Elbow and Forearm Manual Muscle Testing Left Flexion (C6) 5 Normal Extension (C7) 5 Normal Pronation 5 Normal Supination 5 Normal Right Comments MMT deferred post-op Wrist Strength Wrist Manual Muscle Testing Left Flexion (C7) 5 Normal Extension (C6) 5 Normal Right Comments MMT deferred post-op d/t pt guarding PT-OP-Q Treatments Start: 09/11/20 14:43 Freq: Status: Active Protocol: Document 11/13/20 12:10 MB (Rec: 11/13/20 12:47 MB [id number]) Cardio Equipment Upper Body Ergometer (UBE) Duration (Minutes) 10 Other 1' forward and 1' backward Therapeutic Exercises Supine Exercises Chicken stretch Comments Pt performs with head on pillow today and decreased ER right compared to le Manual Therapy Treatment Other Other Manual Treatments Pt supine with head and neck supported: right biceps and deltoid and supinator and pronator STM and MWM with pt perform ER and IR right shoulder for biceps and deltoid PT-OP-R Modalities Start: 09/11/20 14:43 Freq: Status: Active Protocol: Document 10/13/20 13:47 SP (Rec: 10/13/20 14:31 SP [id number]) Hot Pack/Cold Pack Treatment cryocuf Location R shld Patient Position Sitting Treatment Duration (minutes) 10 Patient Tolerance Good PT-OP-T Assessment and Plan Start: 09/11/20 14:43 Freq: Status: Active Protocol: Document 11/13/20 12:10 MB (Rec: 11/13/20 12:47 MB [id number]) Physical Therapy Assessment Rehab Potential Rehabilitation Potential Good Evaluation Complexity Number of Personal Factors/Comorbidities 1-2 Number of Body Systems Impaired 1-2 Clinical Presentation at Evaluation Stable Impairments Impairments Activity Tolerance,Balance, Coordination,Functional Activities,Functional Mobility ,Gait,Posture,ROM,Soft Tissue Mobility,Strength Other Impairments Pt denies pain. She reports she has been guarded her right arm a lot and this may be a barrier to PT. Body systems affected include musculoskeletal and neuromuscular. Her clinical presentation is stable. Goals 6 Retail Client Manager Goal (LTG) Pt will be able to lift a kettle full of water to allow return to [place] by 01/13/21. LTG Duration 8 weeks 5 Retail Client Manager Goal (LTG) Pt will perform progressive HEP with I including ROM, strengthening, postural, core and balance exercises to improve function by 01/13/21. 12/14/20: Pt is performing exercises over pool noodle including AROM exercises and posterior capsule stretch LTG Duration 8 weeks 4 Retail Client Manager Goal (LTG) Pt will be able to return to gardening for 20 minutes by . 11/13/20: Pt has been back to pulling weeds but cannot dig LTG Duration 8 weeks 3 Senior Living Goal (LTG) Pt will be able to perform spinning yarn and knitting without pain by 01/13/21. 11/13/20: Pt has not yet spinned yarn or knitted LTG Duration 8 weeks 2 Senior Living Goal (LTG) Pt will present with improved right shoulder AROM to at least 120 deg flexion and 100 deg abduction to improve functional use of arm by . 11/13/20: AROM flexion right is 160 deg and left is 170 deg; abduction left 160 deg and right 170 deg; left shoulder IR with index finger to T5, right shoulder IR to T10. AROM extension to at least 60 deg both arms. PROM left shoulder in 90/90 ER to 80 and IR to 60 deg, moves easily. Right shoulder in 90/90 ER 62 deg, IR 42 deg. LTG Duration Met 1 Senior Living Goal (LTG) Pt will present with an improved QuickDASH score to reflect no more than 20% impairment to improve ADLs and IADLs by 01/13/21. 11/13/20: QuickDASH score reflects 45.25% impairment LTG Duration 8 weeks Assessment Summary Assessment Pt reports right forearm tingling after using arm bike today. This occ occurs with her right elbow bent. She reports decreased ER with chicken stretch and discomfort right proximal arm where grafting area is and where she has a lot of fascial tightness. Will con't to work on this area. Pt's AROM right shoulder is drastically improved and she is performing exercises. Her QuickDASH score is much improved. She can don shirts and her bra. She will benefit from further PT progression to improve range, posture and strength. Physical Therapy Plan Frequency and Duration Frequency of Treatment 2x/Week Duration of Treatment 8 weeks Plan of Care Start Date 11/13/20 Plan of Care End Date 01/13/21 Therapeutic Interventions Therapeutic Interventions Balance Training,Canalithic Repositioning,Gait Training, Home Exercise Program,Joint Mobilizations,Manual Therapy, Neuromuscular Re-education, Orthotic/Prosthetic Management ,Patient/Caregiver Education, Self-Care/Home Management,Soft Tissue Mobilization,Taping, Therapeutic Activities, Therapeutic Exercises Modalities Cold Pack/Ice Massage,Electric Stimulation,Hot Packs, Ultrasound Next Visit Focus/Plan Next Note Type Treatment Note Next Visit Plan Progress exercises
--- NOTE | 2020-11-17 14:17 | PT.OTN ---
Current Diagnoses Complete rotator cuff tear or rupture of right shoulder, not specified as traumatic (11/17/20) Physical Therapy Treatment Note PT-OP-A Visit Information Start: 09/11/20 14:43 Freq: Status: Active Protocol: Document 11/17/20 13:26 MB (Rec: 11/17/20 14:17 MB [id number]) Out-Patient Physical Therapy Visit Information Visit Information Visit Type Treatment Note Visit Start Time 13:26 Visit Stop Time 14:15 Total Visit Minutes 49 Visit Number 11 Precautions Precautions Pt underwent arthroscopic surgery right shoulder with grafting on 08/07/20. Received provider note that states continue gentle strengthening with PT and HEP as directed. AM discussed including heavy lifting, weighted overhead activities and anything with susceptible abrupt stops/jolts . PT-OP-B Current Condition Start: 09/11/20 14:43 Freq: Status: Active Protocol: Document 09/18/20 12:59 MB (Rec: 09/18/20 13:15 MB [id number]) Current Condition History of Current Condition Onset Date 08/07/20 Current Complaints Inability to use right arm much post-op History of Current Condition Pt underwent right shoulder arthroscopic surgery on with op report stating right bicep and subscapularis repairs and extensive debridement with grafting technique. Pt's surgeon is in [place]. She just moved up to [place]. Pt is right handed. She has just gotten back in the bed and is trying to lie flatter with sleeping. Pt denies numbness and tingling and pain. PMH includes: left rotator cuff surgery 7 years ago and PT Prior Treatments and Tests Left shoulder surgery and PT, PT for left hamstrings and achilles problems Treatment Goals Patient/Caregiver Goals To learn how to use her arm safely PT-OP-C Subjective Start: 09/11/20 14:43 Freq: Status: Active Protocol: Document 11/17/20 13:26 MB (Rec: 11/17/20 14:17 MB [id number]) OP-PT Subjective Patient Comments Patient Comments Pt states that her right shoulder is uncomfortable and popping where the graft site is and where PT worked on the trigger point last treatment date. PT-OP-J Posture/Palpation/Skin Start: 09/11/20 14:43 Freq: Status: Active Protocol: Document 09/18/20 12:59 MB (Rec: 09/18/20 15:52 MB [id number]) Posture Evaluation Comments Posture Comments Standing posture: pt does allow her right arm to dangle by her side: forward head, rounded shoulders, increased thoracic kyphosis, increased lumbar lordosis, right upper thoracic spine and scapula are tight with mildly protracted right scapula, mild upper thoracic convexity to the right. Skin Assessment Other Assessments Skin Assessment Comments Right shoulder arthroscopic scars healing well and no edema or ecchymosis, fascial tension over right posterior delt and triceps and pt states that graft had a pulling effect PT-OP-K Range of Motion Start: 09/11/20 14:43 Freq: Status: Active Protocol: Document 09/18/20 12:59 MB (Rec: 09/18/20 15:52 MB [id number]) Cervical Spine Range of Motion Cervical Spine Active Testing Position Standing Flexion 43 Extension 35 Rotation Left 54 Rotation Right 56 Shoulder Goniometric Range of Motion Shoulder Right Shoulder ROM WFL No Testing Position Standing and supine Comments PROM: in standing flexion to 40 deg and abduction to 25 deg and pt does not perform active assistance. In supine: flexion to 80 deg and abduction to 73 deg. With shoulder in 73 deg abduction, ER 0 deg and IR 5 deg Left Shoulder ROM WFL Yes Testing Position Standing Shoulder ROM Limitations Comments Guarding and post-op limitations PT-OP-M Strength Start: 09/11/20 14:43 Freq: Status: Active Protocol: Document 09/18/20 12:59 MB (Rec: 09/18/20 15:52 MB [id number]) Shoulder Strength Shoulder Manual Muscle Testing Left Flexion 5 Normal Abduction (C5) 5 Normal External Rotation 5 Normal Internal Rotation 5 Normal Right Comments MMT deferred post-op 6 weeks Elbow/Forearm Strength Elbow and Forearm Manual Muscle Testing Left Flexion (C6) 5 Normal Extension (C7) 5 Normal Pronation 5 Normal Supination 5 Normal Right Comments MMT deferred post-op Wrist Strength Wrist Manual Muscle Testing Left Flexion (C7) 5 Normal Extension (C6) 5 Normal Right Comments MMT deferred post-op d/t pt guarding PT-OP-Q Treatments Start: 09/11/20 14:43 Freq: Status: Active Protocol: Document 11/17/20 13:26 MB (Rec: 11/17/20 14:17 MB [id number]) Cardio Equipment Upper Body Ergometer (UBE) Duration (Minutes) 6 Other 1' forward and 1' backward Therapeutic Exercises Supine Exercises Exercises over 6 foam roller Supine Exercise Name Level 1 band resisted ER and horizontal abduction Side bilateral Comments Level 1 band around wrist for shoulder flexion, 1o reps Manual Therapy Treatment Other Other Manual Treatments Pt supine with head and neck supported: positional release and MWM for right bicipital and deltoid TrP and tension many areas in the muscles and pt responds well and area is much more pliable than last treatment PT-OP-R Modalities Start: 09/11/20 14:43 Freq: Status: Active Protocol: Document 10/13/20 13:47 SP (Rec: 10/13/20 14:31 SP [id number]) Hot Pack/Cold Pack Treatment cryocuf Location R shld Patient Position Sitting Treatment Duration (minutes) 10 Patient Tolerance Good PT-OP-T Assessment and Plan Start: 09/11/20 14:43 Freq: Status: Active Protocol: Document 11/17/20 13:26 MB (Rec: 11/17/20 14:17 MB [id number]) Physical Therapy Assessment Rehab Potential Rehabilitation Potential Good Evaluation Complexity Number of Personal Factors/Comorbidities 1-2 Number of Body Systems Impaired 1-2 Clinical Presentation at Evaluation Stable Impairments Impairments Activity Tolerance,Balance, Coordination,Functional Activities,Functional Mobility ,Gait,Posture,ROM,Soft Tissue Mobility,Strength Other Impairments Pt denies pain. She reports she has been guarded her right arm a lot and this may be a barrier to PT. Body systems affected include musculoskeletal and neuromuscular. Her clinical presentation is stable. Goals 6 Associate Professor Of Musicology Goal (LTG) Pt will be able to lift a kettle full of water to allow return to [place] by 01/13/21. LTG Duration 8 weeks 5 Associate Professor Of Musicology Goal (LTG) Pt will perform progressive HEP with I including ROM, strengthening, postural, core and balance exercises to improve function by 01/13/21. 12/14/20: Pt is performing exercises over pool noodle including AROM exercises and posterior capsule stretch LTG Duration 8 weeks 4 Associate Professor Of Musicology Goal (LTG) Pt will be able to return to gardening for 20 minutes by . 11/13/20: Pt has been back to pulling weeds but cannot dig LTG Duration 8 weeks 3 Associate Professor Of Musicology Goal (LTG) Pt will be able to perform spinning yarn and knitting without pain by 01/13/21. 11/13/20: Pt has not yet spinned yarn or knitted LTG Duration 8 weeks 1 Residential Goal (LTG) Pt will present with an improved QuickDASH score to reflect no more than 20% impairment to improve ADLs and IADLs by 01/13/21. 11/13/20: QuickDASH score reflects 45.25% impairment LTG Duration 8 weeks Assessment Summary Assessment Manual palpation of right UE is much better today as far as pliability and pain. She con' t with some areas of myofascial restriction, tension and discomfort right biceps and deltoid and she responds well to intervention today and will benefit from further intervention. Progress strengthening today. Physical Therapy Plan Frequency and Duration Frequency of Treatment 2x/Week Duration of Treatment 8 weeks Plan of Care Start Date 11/13/20 Plan of Care End Date 01/13/21 Therapeutic Interventions Therapeutic Interventions Balance Training,Canalithic Repositioning,Gait Training, Home Exercise Program,Joint Mobilizations,Manual Therapy, Neuromuscular Re-education, Orthotic/Prosthetic Management ,Patient/Caregiver Education, Self-Care/Home Management,Soft Tissue Mobilization,Taping, Therapeutic Activities, Therapeutic Exercises Modalities Cold Pack/Ice Massage,Electric Stimulation,Hot Packs, Ultrasound Next Visit Focus/Plan Next Note Type Treatment Note Next Visit Plan Progress exercises and manual work
--- NOTE | 2020-11-20 11:19 | PT.OTN ---
Current Diagnoses Complete rotator cuff tear or rupture of right shoulder, not specified as traumatic (11/20/20) Physical Therapy Treatment Note PT-OP-A Visit Information Start: 09/11/20 14:43 Freq: Status: Active Protocol: Document 11/20/20 10:32 MB (Rec: 11/20/20 11:19 MB [id number]) Out-Patient Physical Therapy Visit Information Visit Information Visit Type Treatment Note Visit Start Time 10:32 Visit Stop Time 11:15 Total Visit Minutes 43 Visit Number 12 Precautions Precautions Pt underwent arthroscopic surgery right shoulder with grafting on 08/07/20. Received provider note that states continue gentle strengthening with PT and HEP as directed. AM discussed including heavy lifting, weighted overhead activities and anything with susceptible abrupt stops/jolts . PT-OP-B Current Condition Start: 09/11/20 14:43 Freq: Status: Active Protocol: Document 09/18/20 12:59 MB (Rec: 09/18/20 13:15 MB [id number]) Current Condition History of Current Condition Onset Date 08/07/20 Current Complaints Inability to use right arm much post-op History of Current Condition Pt underwent right shoulder arthroscopic surgery on with op report stating right bicep and subscapularis repairs and extensive debridement with grafting technique. Pt's surgeon is in [place]. She just moved up to [place]. Pt is right handed. She has just gotten back in the bed and is trying to lie flatter with sleeping. Pt denies numbness and tingling and pain. PMH includes: left rotator cuff surgery 7 years ago and PT Prior Treatments and Tests Left shoulder surgery and PT, PT for left hamstrings and achilles problems Treatment Goals Patient/Caregiver Goals To learn how to use her arm safely PT-OP-C Subjective Start: 09/11/20 14:43 Freq: Status: Active Protocol: Document 11/20/20 10:32 MB (Rec: 11/20/20 11:19 MB [id number]) OP-PT Subjective Patient Comments Patient Comments Pt states that she is a little sore today and she does not know if she slept on her right shoulder funny or not. PT-OP-J Posture/Palpation/Skin Start: 09/11/20 14:43 Freq: Status: Active Protocol: Document 09/18/20 12:59 MB (Rec: 09/18/20 15:52 MB [id number]) Posture Evaluation Comments Posture Comments Standing posture: pt does allow her right arm to dangle by her side: forward head, rounded shoulders, increased thoracic kyphosis, increased lumbar lordosis, right upper thoracic spine and scapula are tight with mildly protracted right scapula, mild upper thoracic convexity to the right. Skin Assessment Other Assessments Skin Assessment Comments Right shoulder arthroscopic scars healing well and no edema or ecchymosis, fascial tension over right posterior delt and triceps and pt states that graft had a pulling effect PT-OP-K Range of Motion Start: 09/11/20 14:43 Freq: Status: Active Protocol: Document 09/18/20 12:59 MB (Rec: 09/18/20 15:52 MB [id number]) Cervical Spine Range of Motion Cervical Spine Active Testing Position Standing Flexion 43 Extension 35 Rotation Left 54 Rotation Right 56 Shoulder Goniometric Range of Motion Shoulder Right Shoulder ROM WFL No Testing Position Standing and supine Comments PROM: in standing flexion to 40 deg and abduction to 25 deg and pt does not perform active assistance. In supine: flexion to 80 deg and abduction to 73 deg. With shoulder in 73 deg abduction, ER 0 deg and IR 5 deg Left Shoulder ROM WFL Yes Testing Position Standing Shoulder ROM Limitations Comments Guarding and post-op limitations PT-OP-M Strength Start: 09/11/20 14:43 Freq: Status: Active Protocol: Document 09/18/20 12:59 MB (Rec: 09/18/20 15:52 MB [id number]) Shoulder Strength Shoulder Manual Muscle Testing Left Flexion 5 Normal Abduction (C5) 5 Normal External Rotation 5 Normal Internal Rotation 5 Normal Right Comments MMT deferred post-op 6 weeks Elbow/Forearm Strength Elbow and Forearm Manual Muscle Testing Left Flexion (C6) 5 Normal Extension (C7) 5 Normal Pronation 5 Normal Supination 5 Normal Right Comments MMT deferred post-op Wrist Strength Wrist Manual Muscle Testing Left Flexion (C7) 5 Normal Extension (C6) 5 Normal Right Comments MMT deferred post-op d/t pt guarding PT-OP-Q Treatments Start: 09/11/20 14:43 Freq: Status: Active Protocol: Document 11/20/20 10:32 MB (Rec: 11/20/20 11:19 MB [id number]) Cardio Equipment Upper Body Ergometer (UBE) Duration (Minutes) 13 Other 1' forward and 1' backward Therapeutic Exercises Supine Exercises ILU massage for colon Supine Exercise Name Pt scans visceral for Counterstrain and reports constipation Comments Ed in this to help with anterior fascial tension affecting the shoulder Shoulder ER with band over pull noodle Comments Level 1 band, pt keeping resistance with pulling out and back Exercises over 6 foam roller Supine Exercise Name Already doing flexion, Ts, and pect stretch Comments Added half x today and this causes clicking, 10 reps Manual Therapy Treatment Other Other Manual Treatments Pt agrees to Counterstrain to assess and treat fascial tension and she presents with most tension and pain at scan for anterior abdomen fascia on the left and treated a stack and scan is better. PT-OP-R Modalities Start: 09/11/20 14:43 Freq: Status: Active Protocol: Document 10/13/20 13:47 SP (Rec: 10/13/20 14:31 SP [id number]) Hot Pack/Cold Pack Treatment cryocuf Location R shld Patient Position Sitting Treatment Duration (minutes) 10 Patient Tolerance Good PT-OP-T Assessment and Plan Start: 09/11/20 14:43 Freq: Status: Active Protocol: Document 11/20/20 10:32 MB (Rec: 11/20/20 11:19 MB [id number]) Physical Therapy Assessment Rehab Potential Rehabilitation Potential Good Evaluation Complexity Number of Personal Factors/Comorbidities 1-2 Number of Body Systems Impaired 1-2 Clinical Presentation at Evaluation Stable Impairments Impairments Activity Tolerance,Balance, Coordination,Functional Activities,Functional Mobility ,Gait,Posture,ROM,Soft Tissue Mobility,Strength Other Impairments Pt denies pain. She reports she has been guarded her right arm a lot and this may be a barrier to PT. Body systems affected include musculoskeletal and neuromuscular. Her clinical presentation is stable. 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 LTG Duration 8 weeks 5 Nursing Home Goal (LTG) Pt will perform progressive HEP with I including ROM, strengthening, postural, core and balance exercises to improve function by 01/13/21. 12/14/20: Pt is performing exercises over pool noodle including AROM exercises and posterior capsule stretch LTG Duration 8 weeks 4 Nursing Home Goal (LTG) Pt will be able to return to gardening for 20 minutes by . 11/13/20: Pt has been back to pulling weeds but cannot dig LTG Duration 8 weeks 3 Head Loft Worker Goal (LTG) Pt will be able to perform spinning yarn and knitting without pain by 01/13/21. 11/13/20: Pt has not yet spinned yarn or knitted LTG Duration 8 weeks 1 Nursing Home Goal (LTG) Pt will present with an improved QuickDASH score to reflect no more than 20% impairment to improve ADLs and IADLs by 01/13/21. 11/13/20: QuickDASH score reflects 45.25% impairment LTG Duration 8 weeks Assessment Summary Assessment Pt has tingling in right forearm with arm bike over 10 minutes. She also gets some more with pect stretch over roller and PT feels there is a pect, vascular and neural fascial component to systems. Physical Therapy Plan Frequency and Duration Frequency of Treatment 2x/Week Duration of Treatment 8 weeks Plan of Care Start Date 11/13/20 Plan of Care End Date 01/13/21 Therapeutic Interventions Therapeutic Interventions Balance Training,Canalithic Repositioning,Gait Training, Home Exercise Program,Joint Mobilizations,Manual Therapy, Neuromuscular Re-education, Orthotic/Prosthetic Management ,Patient/Caregiver Education, Self-Care/Home Management,Soft Tissue Mobilization,Taping, Therapeutic Activities, Therapeutic Exercises Modalities Cold Pack/Ice Massage,Electric Stimulation,Hot Packs, Ultrasound Next Visit Focus/Plan Next Note Type Treatment Note Next Visit Plan Counterstrain next treatment date Ongoing manual work, progress strengthening including row with band in standing, consider Body Blade in 1-2 treatments, consider Counterstrain in the future
--- NOTE | 2020-11-27 15:18 | PT.OTN ---
Current Diagnoses Complete rotator cuff tear or rupture of right shoulder, not specified as traumatic (11/27/20) Physical Therapy Treatment Note PT-OP-A Visit Information Start: 09/11/20 14:43 Freq: Status: Active Protocol: Document 11/27/20 14:36 SP (Rec: 11/27/20 15:50 SP [id number]) Out-Patient Physical Therapy Visit Information Visit Information Visit Type Treatment Note Visit Start Time 14:36 Visit Stop Time 15:18 Total Visit Minutes 42 Visit Number 13 Number of VIDEO JOURNALIST Visits 1 Evaluation Information Evaluation Date 09/18/20 Precautions Precautions Pt underwent arthroscopic surgery right shoulder with grafting on 08/07/20. Received provider note that states continue gentle strengthening with PT and HEP as directed. AM discussed including heavy lifting, weighted overhead activities and anything with susceptible abrupt stops/jolts . PT-OP-B Current Condition Start: 09/11/20 14:43 Freq: Status: Active Protocol: Document 09/18/20 12:59 MB (Rec: 09/18/20 13:15 MB [id number]) Current Condition History of Current Condition Onset Date 08/07/20 Current Complaints Inability to use right arm much post-op History of Current Condition Pt underwent right shoulder arthroscopic surgery on with op report stating right bicep and subscapularis repairs and extensive debridement with grafting technique. Pt's surgeon is in [place]. She just moved up to [place]. Pt is right handed. She has just gotten back in the bed and is trying to lie flatter with sleeping. Pt denies numbness and tingling and pain. PMH includes: left rotator cuff surgery 7 years ago and PT Prior Treatments and Tests Left shoulder surgery and PT, PT for left hamstrings and achilles problems Treatment Goals Patient/Caregiver Goals To learn how to use her arm safely PT-OP-C Subjective Start: 09/11/20 14:43 Freq: Status: Active Protocol: Document 11/27/20 14:36 SP (Rec: 11/27/20 15:50 SP [id number]) OP-PT Subjective Patient Comments Patient Comments Pt stated compliant with HEP. 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 Pt states notices more tingling since started PT but unsure if is because doing more things since started PT, hard to tell. PT-OP-J Posture/Palpation/Skin Start: 09/11/20 14:43 Freq: Status: Active Protocol: Document 09/18/20 12:59 MB (Rec: 09/18/20 15:52 MB [id number]) Posture Evaluation Comments Posture Comments Standing posture: pt does allow her right arm to dangle by her side: forward head, rounded shoulders, increased thoracic kyphosis, increased lumbar lordosis, right upper thoracic spine and scapula are tight with mildly protracted right scapula, mild upper thoracic convexity to the right. Skin Assessment Other Assessments Skin Assessment Comments Right shoulder arthroscopic scars healing well and no edema or ecchymosis, fascial tension over right posterior delt and triceps and pt states that graft had a pulling effect PT-OP-K Range of Motion Start: 09/11/20 14:43 Freq: Status: Active Protocol: Document 09/18/20 12:59 MB (Rec: 09/18/20 15:52 MB [id number]) Cervical Spine Range of Motion Cervical Spine Active Testing Position Standing Flexion 43 Extension 35 Rotation Left 54 Rotation Right 56 Shoulder Goniometric Range of Motion Shoulder Right Shoulder ROM WFL No Testing Position Standing and supine Comments PROM: in standing flexion to 40 deg and abduction to 25 deg and pt does not perform active assistance. In supine: flexion to 80 deg and abduction to 73 deg. With shoulder in 73 deg abduction, ER 0 deg and IR 5 deg Left Shoulder ROM WFL Yes Testing Position Standing Shoulder ROM Limitations Comments Guarding and post-op limitations PT-OP-M Strength Start: 09/11/20 14:43 Freq: Status: Active Protocol: Document 09/18/20 12:59 MB (Rec: 09/18/20 15:52 MB [id number]) Shoulder Strength Shoulder Manual Muscle Testing Left Flexion 5 Normal Abduction (C5) 5 Normal External Rotation 5 Normal Internal Rotation 5 Normal Right Comments MMT deferred post-op 6 weeks Elbow/Forearm Strength Elbow and Forearm Manual Muscle Testing Left Flexion (C6) 5 Normal Extension (C7) 5 Normal Pronation 5 Normal Supination 5 Normal Right Comments MMT deferred post-op Wrist Strength Wrist Manual Muscle Testing Left Flexion (C7) 5 Normal Extension (C6) 5 Normal Right Comments MMT deferred post-op d/t pt guarding PT-OP-Q Treatments Start: 09/11/20 14:43 Freq: Status: Active Protocol: Document 11/27/20 14:36 SP (Rec: 11/27/20 15:50 SP [id number]) Cardio Equipment Upper Body Ergometer (UBE) Duration (Minutes) 10 RPM 13 Seat Position standing portable UBE(13.3-13. 6 speed) Other 1' forward and 1' backward- experiences tingling as time goes- cued posture Therapeutic Exercises Supine Exercises Ws Supine Exercise Name shld ER at side to over head back start pos Side bilateral Equipment Used over 6 foam roller Reps/Minutes x10 Comments cued humeral ER, forearm // to floor if tolerated throughout range D2 flexion Supine Exercise Name 1/2 x- reviewed HEP + TB Side right Resistance AROM x10> TB #1 x5 reps Equipment Used over 6 foam roller Reps/Minutes x10 Comments cued scap depression stab as arm reach 1/2 X Pect stretch Side bilateral Equipment Used Pt lying over 6 foam roller Exercises over 6 foam roller Supine Exercise Name pec stretch> then FF, Ts Comments Added half x today and this causes clicking, 10 reps Standing Exercises standing row Standing Exercise Name added to HEP Side bilateral Resistance Tb #2 Equipment Used anchored in wall Reps/Minutes x10 Comments cued split stance, soft knee, tall posture, CS ext neutral PT-OP-R Modalities Start: 09/11/20 14:43 Freq: Status: Active Protocol: Document 10/13/20 13:47 SP (Rec: 10/13/20 14:31 SP [id number]) Hot Pack/Cold Pack Treatment cryocuf Location R shld Patient Position Sitting Treatment Duration (minutes) 10 Patient Tolerance Good PT-OP-T Assessment and Plan Start: 09/11/20 14:43 Freq: Status: Active Protocol: Document 11/27/20 14:36 SP (Rec: 11/27/20 15:50 SP [id number]) Physical Therapy Assessment Goals 6 Foundation Drill Operator Helper Goal (LTG) Pt will be able to lift a kettle full of water to allow return to [facility] by 01/13/21. 11/27/20: progressing: able to tolerate D2 flexion supine over foam roller using Tb #1 resistance painfree added to HEP today. LTG Duration 8 weeks 5 Foundation Drill Operator Helper Goal (LTG) Pt will perform progressive HEP with I including ROM, strengthening, postural, core and balance exercises to improve function by 01/13/21. 11/13/20: Pt is performing exercises over pool noodle including AROM exercises and posterior capsule stretch 11/27/20: initiated D2 flexion supine w/ #1 TB and standing resisted rows #2. LTG Duration 8 weeks 4 [facility] Goal (LTG) Pt will be able to return to gardening for 20 minutes by . 11/13/20: Pt has been back to pulling weeds but cannot dig LTG Duration 8 weeks 3 [facility] Goal (LTG) Pt will be able to perform spinning yarn and knitting without pain by 01/13/21. 11/13/20: Pt has not yet spinned yarn or knitted LTG Duration 8 weeks 1 [employer] Drill Operator Helper Goal (LTG) Pt will present with an improved QuickDASH score to reflect no more than 20% impairment to improve ADLs and IADLs by 01/13/21. 11/13/20: QuickDASH score reflects 45.25% impairment LTG Duration 8 weeks Assessment Summary Assessment Pt continues to experience R forearm tingling into hand during arm bike standing today at 8 min but stated not worse than usually gets cutting things, did not change with cues for body little closer to stand and tall posture, seated UBE unavailable. Pt good demonstration of supine HEP, able to add resistance to 1/2 X in supine and initiated standing resisted rows this tx, cued for continued tall posture and split stance for trunk stability. Physical Therapy Plan Frequency and Duration Frequency of Treatment 2x/Week Duration of Treatment 8 weeks Plan of Care Start Date 11/13/20 Plan of Care End Date 01/13/21 Therapeutic Interventions Therapeutic Interventions Balance Training,Canalithic Repositioning,Gait Training, Home Exercise Program,Joint Mobilizations,Manual Therapy, Neuromuscular Re-education, Orthotic/Prosthetic Management ,Patient/Caregiver Education, Self-Care/Home Management,Soft Tissue Mobilization,Taping, Therapeutic Activities, Therapeutic Exercises Modalities Cold Pack/Ice Massage,Electric Stimulation,Hot Packs, Ultrasound Next Visit Focus/Plan Next Note Type Treatment Note Next Visit Plan Assess response to added D2 flex Tb supine, resisted rows standing. Next tx assess use of body blade. POC: Counterstrain next treatment date Ongoing manual work, progress strengthening
--- NOTE | 2020-12-01 13:01 | PT.OTN ---
Current Diagnoses Complete rotator cuff tear or rupture of right shoulder, not specified as traumatic (12/01/20) Physical Therapy Treatment Note PT-OP-A Visit Information Start: 09/11/20 14:43 Freq: Status: Active Protocol: Document 12/01/20 12:17 SP (Rec: 12/01/20 13:05 SP [id number]) Out-Patient Physical Therapy Visit Information Visit Information Visit Type Treatment Note Visit Start Time 12:17 Visit Stop Time 13:01 Total Visit Minutes 44 Visit Number 14 Number of LANDS RESOURCE MANAGER Visits 2 Evaluation Information Evaluation Date 09/18/20 Precautions Precautions Pt underwent arthroscopic surgery right shoulder with grafting on 08/07/20. Received provider note that states continue gentle strengthening with PT and HEP as directed. AM discussed including heavy lifting, weighted overhead activities and anything with susceptible abrupt stops/jolts . PT-OP-B Current Condition Start: 09/11/20 14:43 Freq: Status: Active Protocol: Document 09/18/20 12:59 MB (Rec: 09/18/20 13:15 MB [id number]) Current Condition History of Current Condition Onset Date 08/07/20 Current Complaints Inability to use right arm much post-op History of Current Condition Pt underwent right shoulder arthroscopic surgery on with op report stating right bicep and subscapularis repairs and extensive debridement with grafting technique. Pt's surgeon is in [place]. She just moved up to [place]. Pt is right handed. She has just gotten back in the bed and is trying to lie flatter with sleeping. Pt denies numbness and tingling and pain. 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 Pt states no problems with newly added supine scaption and resisted row using TB last tx at home. Pt states can fasten her bra strap now so ROM improving. PT-OP-J Posture/Palpation/Skin Start: 09/11/20 14:43 Freq: Status: Active Protocol: Document 09/18/20 12:59 MB (Rec: 09/18/20 15:52 MB [id number]) Posture Evaluation Comments Posture Comments Standing posture: pt does allow her right arm to dangle by her side: forward head, rounded shoulders, increased thoracic kyphosis, increased lumbar lordosis, right upper thoracic spine and scapula are tight with mildly protracted right scapula, mild upper thoracic convexity to the right. Skin Assessment Other Assessments Skin Assessment Comments Right shoulder arthroscopic scars healing well and no edema or ecchymosis, fascial tension over right posterior delt and triceps and pt states that graft had a pulling effect PT-OP-K Range of Motion Start: 09/11/20 14:43 Freq: Status: Active Protocol: Document 09/18/20 12:59 MB (Rec: 09/18/20 15:52 MB [id number]) Cervical Spine Range of Motion Cervical Spine Active Testing Position Standing Flexion 43 Extension 35 Rotation Left 54 Rotation Right 56 Shoulder Goniometric Range of Motion Shoulder Right Shoulder ROM WFL No Testing Position Standing and supine Comments PROM: in standing flexion to 40 deg and abduction to 25 deg and pt does not perform active assistance. In supine: flexion to 80 deg and abduction to 73 deg. With shoulder in 73 deg abduction, ER 0 deg and IR 5 deg Left Shoulder ROM WFL Yes Testing Position Standing Shoulder ROM Limitations Comments Guarding and post-op limitations PT-OP-M Strength Start: 09/11/20 14:43 Freq: Status: Active Protocol: Document 09/18/20 12:59 MB (Rec: 09/18/20 15:52 MB [id number]) Shoulder Strength Shoulder Manual Muscle Testing Left Flexion 5 Normal Abduction (C5) 5 Normal External Rotation 5 Normal Internal Rotation 5 Normal Right Comments MMT deferred post-op 6 weeks Elbow/Forearm Strength Elbow and Forearm Manual Muscle Testing Left Flexion (C6) 5 Normal Extension (C7) 5 Normal Pronation 5 Normal Supination 5 Normal Right Comments MMT deferred post-op Wrist Strength Wrist Manual Muscle Testing Left Flexion (C7) 5 Normal Extension (C6) 5 Normal Right Comments MMT deferred post-op d/t pt guarding PT-OP-Q Treatments Start: 09/11/20 14:43 Freq: Status: Active Protocol: Document 12/01/20 12:17 SP (Rec: 12/01/20 13:05 SP [id number]) Cardio Equipment Upper Body Ergometer (UBE) Duration (Minutes) 10 RPM 120 Seat Position seated UBE Other cued CS posture as needed, 1 min f/b Therapeutic Exercises Supine Exercises Ws Supine Exercise Name shld ER at side to over head back start pos Side bilateral Resistance tb #2 Equipment Used over 6 foam roller Reps/Minutes x10 Comments cued humeral ER, forearm // to floor if tolerated throughout range D2 flexion Supine Exercise Name 1/2 x- reviewed HEP + TB Side right Resistance AROM x10> TB #1 x5 reps Equipment Used over 6 foam roller Reps/Minutes x10 Comments cued scap depression stab as arm reach 1/2 X Shoulder ER with band over pull noodle Resistance Tb #2 Equipment Used over 6 foam roller Comments cued awareness of spine along roller, not arch back Exercises over 6 foam roller Supine Exercise Name pec stretch> then FF, Ts Comments Added half x today and this causes clicking, 10 reps Standing Exercises standing row Standing Exercise Name reviewed HEP Side bilateral Resistance Tb #2 Equipment Used anchored in wall Reps/Minutes x10 Comments cued split stance, soft knee, tall posture, CS ext neutral IR stretch with towel Standing Exercise Name assess ROM and performance next tx Manual Therapy Treatment Soft Tissue Mobilization STMs Body Location R UT, Scalenes, SCM, Lat distal, Teres minor/major, subscap Mobilization Type Myofascial Release,Strumming, Sustained Pressure,Other Intensity/Depth Superficial Body Position Supine Comments manual, instruction on self STMs today added end mop at wall/floor sustained pressure muscle release over R subscap and R distal lat cautious of bracial plexus w/ RUE cross body positioning in standing while L hand hold guidance of end of broom. Good feedback results able to get to areas of tightness that the ball on wall doesn't get to. PT-OP-R Modalities Start: 09/11/20 14:43 Freq: Status: Active Protocol: Document 10/13/20 13:47 SP (Rec: 10/13/20 14:31 SP [id number]) Hot Pack/Cold Pack Treatment cryocuf Location R shld Patient Position Sitting Treatment Duration (minutes) 10 Patient Tolerance Good PT-OP-T Assessment and Plan Start: 09/11/20 14:43 Freq: Status: Active Protocol: Document 12/01/20 12:17 SP (Rec: 12/01/20 13:05 SP [id number]) Physical Therapy Assessment Goals 6 Correction Goal (LTG) Pt will be able to lift a kettle full of water to allow return to [facility] by 01/13/21. 11/27/20: progressing: able to tolerate D2 flexion supine over foam roller using Tb #1 resistance painfree added to HEP today. LTG Duration 8 weeks 5 Correction Goal (LTG) Pt will perform progressive HEP with I including ROM, strengthening, postural, core and balance exercises to improve function by 01/13/21. 11/13/20: Pt is performing exercises over pool noodle including AROM exercises and posterior capsule stretch 11/27/20: initiated D2 flexion supine w/ #1 TB and standing resisted rows #2. LTG Duration 8 weeks 4 Cigarette Examiner Goal (LTG) Pt will be able to return to gardening for 20 minutes by . 11/13/20: Pt has been back to pulling weeds but cannot dig LTG Duration 8 weeks 3 Correction Goal (LTG) Pt will be able to perform spinning yarn and knitting without pain by 01/13/21. 11/13/20: Pt has not yet spinned yarn or knitted LTG Duration 8 weeks 1 Correction Goal (LTG) Pt will present with an improved QuickDASH score to reflect no more than 20% impairment to improve ADLs and IADLs by 01/13/21. 11/13/20: QuickDASH score reflects 45.25% impairment LTG Duration 8 weeks Assessment Summary Assessment Pt stated lessening tingling during UBE with self corrections of decrease gripping this tx. Pt stated improved decreased deeper tightness post manual and instructed self standing sustained pressure to sub scap and distal lat using end of broom. Good form and able to increase resistance to TB HEP supine over foam roller RUE. Physical Therapy Plan Frequency and Duration Frequency of Treatment 2x/Week Duration of Treatment 8 weeks Plan of Care Start Date 11/13/20 Plan of Care End Date 01/13/21 Therapeutic Interventions Therapeutic Interventions Balance Training,Canalithic Repositioning,Gait Training, Home Exercise Program,Joint Mobilizations,Manual Therapy, Neuromuscular Re-education, Orthotic/Prosthetic Management ,Patient/Caregiver Education, Self-Care/Home Management,Soft Tissue Mobilization,Taping, Therapeutic Activities, Therapeutic Exercises Modalities Cold Pack/Ice Massage,Electric Stimulation,Hot Packs, Ultrasound Next Visit Focus/Plan Next Note Type Treatment Note Next Visit Plan Assess response to added self STMs subscap/ distal lat using broom handle, added TB #2 to HEP over foam roller. Next tx assess use of body blade. POC: Counterstrain next treatment date Ongoing manual work, progress strengthening in standing.
--- NOTE | 2020-12-04 10:34 | PT-OP ANOTE ---
Pt with same day cancel d/t dog emergency.
--- NOTE | 2020-12-09 13:44 | PT.OTN ---
Current Diagnoses Complete rotator cuff tear or rupture of right shoulder, not specified as traumatic (12/09/20) Physical Therapy Treatment Note PT-OP-A Visit Information Start: 09/11/20 14:43 Freq: Status: Active Protocol: Document 12/09/20 13:00 MB (Rec: 12/09/20 13:44 MB [id number]) Out-Patient Physical Therapy Visit Information Visit Information Visit Type Treatment Note Visit Start Time 13:00 Visit Stop Time 13:43 Total Visit Minutes 43 Visit Number 15 Number of WEIGHER AND CRUSHER Visits 0 Evaluation Information Evaluation Date 09/18/20 Precautions Precautions Pt underwent arthroscopic surgery right shoulder with grafting on 08/07/20. Received provider note that states continue gentle strengthening with PT and HEP as directed. AM discussed including heavy lifting, weighted overhead activities and anything with susceptible abrupt stops/jolts . PT-OP-B Current Condition Start: 09/11/20 14:43 Freq: Status: Active Protocol: Document 09/18/20 12:59 MB (Rec: 09/18/20 13:15 MB [id number]) Current Condition History of Current Condition Onset Date 08/07/20 Current Complaints Inability to use right arm much post-op History of Current Condition Pt underwent right shoulder arthroscopic surgery on with op report stating right bicep and subscapularis repairs and extensive debridement with grafting technique. Pt's surgeon is in [place]. She just moved up to [place]. Pt is right handed. She has just gotten back in the bed and is trying to lie flatter with sleeping. Pt denies numbness and tingling and pain. PMH includes: left rotator cuff surgery 7 years ago and PT Prior Treatments and Tests Left shoulder surgery and PT, PT for left hamstrings and achilles problems Treatment Goals Patient/Caregiver Goals To learn how to use her arm safely PT-OP-C Subjective Start: 09/11/20 14:43 Freq: Status: Active Protocol: Document 12/09/20 13:00 MB (Rec: 12/09/20 13:44 MB [id number]) OP-PT Subjective Patient Comments Patient Comments Pt had to put down her dog and so her week has been difficult and she did not get to do her exercises as much. PT-OP-J Posture/Palpation/Skin Start: 09/11/20 14:43 Freq: Status: Active Protocol: Document 09/18/20 12:59 MB (Rec: 09/18/20 15:52 MB [id number]) Posture Evaluation Comments Posture Comments Standing posture: pt does allow her right arm to dangle by her side: forward head, rounded shoulders, increased thoracic kyphosis, increased lumbar lordosis, right upper thoracic spine and scapula are tight with mildly protracted right scapula, mild upper thoracic convexity to the right. Skin Assessment Other Assessments Skin Assessment Comments Right shoulder arthroscopic scars healing well and no edema or ecchymosis, fascial tension over right posterior delt and triceps and pt states that graft had a pulling effect PT-OP-K Range of Motion Start: 09/11/20 14:43 Freq: Status: Active Protocol: Document 09/18/20 12:59 MB (Rec: 09/18/20 15:52 MB [id number]) Cervical Spine Range of Motion Cervical Spine Active Testing Position Standing Flexion 43 Extension 35 Rotation Left 54 Rotation Right 56 Shoulder Goniometric Range of Motion Shoulder Right Shoulder ROM WFL No Testing Position Standing and supine Comments PROM: in standing flexion to 40 deg and abduction to 25 deg and pt does not perform active assistance. In supine: flexion to 80 deg and abduction to 73 deg. With shoulder in 73 deg abduction, ER 0 deg and IR 5 deg Left Shoulder ROM WFL Yes Testing Position Standing Shoulder ROM Limitations Comments Guarding and post-op limitations PT-OP-M Strength Start: 09/11/20 14:43 Freq: Status: Active Protocol: Document 09/18/20 12:59 MB (Rec: 09/18/20 15:52 MB [id number]) Shoulder Strength Shoulder Manual Muscle Testing Left Flexion 5 Normal Abduction (C5) 5 Normal External Rotation 5 Normal Internal Rotation 5 Normal Right Comments MMT deferred post-op 6 weeks Elbow/Forearm Strength Elbow and Forearm Manual Muscle Testing Left Flexion (C6) 5 Normal Extension (C7) 5 Normal Pronation 5 Normal Supination 5 Normal Right Comments MMT deferred post-op Wrist Strength Wrist Manual Muscle Testing Left Flexion (C7) 5 Normal Extension (C6) 5 Normal Right Comments MMT deferred post-op d/t pt guarding PT-OP-Q Treatments Start: 09/11/20 14:43 Freq: Status: Active Protocol: Document 12/09/20 13:00 MB (Rec: 12/09/20 13:44 MB [id number]) Cardio Equipment Upper Body Ergometer (UBE) Duration (Minutes) 10 Other 1' forward and 1' backward Manual Therapy Treatment Other Other Manual Treatments Pt agrees to Counterstrain to assess and treat fascial tension and she presents with tension in the following fascial systems: right trigeminal and facial nerve, visceral mesentary, dura. PT treats stacks in these systems and her scan improves: trigeminal and fascial nerve, periosteal and spinal vein extension (shows up after rescanned after treated). PT-OP-R Modalities Start: 09/11/20 14:43 Freq: Status: Active Protocol: Document 10/13/20 13:47 SP (Rec: 10/13/20 14:31 SP [id number]) Hot Pack/Cold Pack Treatment cryocuf Location R shld Patient Position Sitting Treatment Duration (minutes) 10 Patient Tolerance Good PT-OP-T Assessment and Plan Start: 09/11/20 14:43 Freq: Status: Active Protocol: Document 12/09/20 13:00 MB (Rec: 12/09/20 13:44 MB [id number]) Physical Therapy Assessment Goals 6 Process Coordinator Goal (LTG) Pt will be able to lift a kettle full of water to allow return to [facility] by 01/13/21. 11/27/20: progressing: able to tolerate D2 flexion supine over foam roller using Tb #1 resistance painfree added to HEP today. LTG Duration 8 weeks 5 Shelter Goal (LTG) Pt will perform progressive HEP with I including ROM, strengthening, postural, core and balance exercises to improve function by 01/13/21. 11/13/20: Pt is performing exercises over pool noodle including AROM exercises and posterior capsule stretch 11/27/20: initiated D2 flexion supine w/ #1 TB and standing resisted rows #2. LTG Duration 8 weeks 4 Process Coordinator Goal (LTG) Pt will be able to return to gardening for 20 minutes by . 11/13/20: Pt has been back to pulling weeds but cannot dig LTG Duration 8 weeks 3 Shelter Goal (LTG) Pt will be able to perform spinning yarn and knitting without pain by 01/13/21. 11/13/20: Pt has not yet spinned yarn or knitted LTG Duration 8 weeks 1 Shelter Goal (LTG) Pt will present with an improved QuickDASH score to reflect no more than 20% impairment to improve ADLs and IADLs by 01/13/21. 11/13/20: QuickDASH score reflects 45.25% impairment LTG Duration 8 weeks Assessment Summary Assessment Pt's right shoulder tension around deltoid is much improved after periosteal treatment with Counterstrain. Will con't manual and therapeutic exercise interventions. Physical Therapy Plan Frequency and Duration Frequency of Treatment 2x/Week Duration of Treatment 8 weeks Plan of Care Start Date 11/13/20 Plan of Care End Date 01/13/21 Therapeutic Interventions Therapeutic Interventions Balance Training,Canalithic Repositioning,Gait Training, Home Exercise Program,Joint Mobilizations,Manual Therapy, Neuromuscular Re-education, Orthotic/Prosthetic Management ,Patient/Caregiver Education, Self-Care/Home Management,Soft Tissue Mobilization,Taping, Therapeutic Activities, Therapeutic Exercises Modalities Cold Pack/Ice Massage,Electric Stimulation,Hot Packs, Ultrasound Next Visit Focus/Plan Next Note Type Treatment Note Next Visit Plan Consider ongoing Counterstrain , standing strengthening with band, PNF, body blade
--- NOTE | 2020-12-11 14:28 | PT.OTN ---
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 Received provider note that states continue gentle strengthening with PT and HEP as directed. AM discussed including heavy lifting, weighted overhead activities and anything with susceptible abrupt stops/jolts . PT-OP-B Current Condition Start: 09/11/20 14:43 Freq: Status: Active Protocol: Document 09/18/20 12:59 MB (Rec: 09/18/20 13:15 MB [id number]) Current Condition History of Current Condition Onset Date 08/07/20 Current Complaints Inability to use right arm much post-op History of Current Condition Pt underwent right shoulder arthroscopic surgery on with op report stating right bicep and subscapularis repairs and extensive debridement with grafting technique. Pt's surgeon is in [place]. She just moved up to [place]. Pt is right handed. She has just gotten back in the bed and is trying to lie flatter with sleeping. Pt denies numbness and tingling and pain. PMH includes: left rotator cuff surgery 7 years ago and PT Prior Treatments and Tests Left shoulder surgery and PT, PT for left hamstrings and achilles problems Treatment Goals Patient/Caregiver Goals To learn how to use her arm safely PT-OP-C Subjective Start: 09/11/20 14:43 Freq: Status: Active Protocol: Document 12/11/20 13:50 MB (Rec: 12/11/20 14:28 MB [id number]) OP-PT Subjective Patient Comments Patient Comments Pt states that her right shoulder had a little soreness in biceps area after treatment. PT-OP-J Posture/Palpation/Skin Start: 09/11/20 14:43 Freq: Status: Active Protocol: Document 09/18/20 12:59 MB (Rec: 09/18/20 15:52 MB [id number]) Posture Evaluation Comments Posture Comments Standing posture: pt does allow her right arm to dangle by her side: forward head, rounded shoulders, increased thoracic kyphosis, increased lumbar lordosis, right upper thoracic spine and scapula are tight with mildly protracted right scapula, mild upper thoracic convexity to the right. Skin Assessment Other Assessments Skin Assessment Comments Right shoulder arthroscopic scars healing well and no edema or ecchymosis, fascial tension over right posterior delt and triceps and pt states that graft had a pulling effect PT-OP-K Range of Motion Start: 09/11/20 14:43 Freq: Status: Active Protocol: Document 09/18/20 12:59 MB (Rec: 09/18/20 15:52 MB [id number]) Cervical Spine Range of Motion Cervical Spine Active Testing Position Standing Flexion 43 Extension 35 Rotation Left 54 Rotation Right 56 Shoulder Goniometric Range of Motion Shoulder Right Shoulder ROM WFL No Testing Position Standing and supine Comments PROM: in standing flexion to 40 deg and abduction to 25 deg and pt does not perform active assistance. In supine: flexion to 80 deg and abduction to 73 deg. With shoulder in 73 deg abduction, ER 0 deg and IR 5 deg Left Shoulder ROM WFL Yes Testing Position Standing Shoulder ROM Limitations Comments Guarding and post-op limitations PT-OP-M Strength Start: 09/11/20 14:43 Freq: Status: Active Protocol: Document 09/18/20 12:59 MB (Rec: 09/18/20 15:52 MB [id number]) Shoulder Strength Shoulder Manual Muscle Testing Left Flexion 5 Normal Abduction (C5) 5 Normal External Rotation 5 Normal Internal Rotation 5 Normal Right Comments MMT deferred post-op 6 weeks Elbow/Forearm Strength Elbow and Forearm Manual Muscle Testing Left Flexion (C6) 5 Normal Extension (C7) 5 Normal Pronation 5 Normal Supination 5 Normal Right Comments MMT deferred post-op Wrist Strength Wrist Manual Muscle Testing Left Flexion (C7) 5 Normal Extension (C6) 5 Normal Right Comments MMT deferred post-op d/t pt guarding PT-OP-Q Treatments Start: 09/11/20 14:43 Freq: Status: Active Protocol: Document 12/11/20 13:50 MB (Rec: 12/11/20 14:28 MB [id number]) Cardio Equipment Upper Body Ergometer (UBE) Duration (Minutes) 10 Other 1' forward and 1' backward Therapeutic Exercises Supine Exercises Triceps and biceps work chopping wood on foam roller, band around wrists Side bilateral Equipment Used 6 foam roller Comments Level 1 band around wrists Shoulder flexion with band around wrists on foam roller Side bilateral Equipment Used 6 foam roller Comments Level 1 band around wrists, 10 reps Ws Equipment Used 6 foam roller Comments Pt performs B D2 flexion Equipment Used 6 foam roller Comments PNF sword and sheath, 10 reps slowly Shoulder ER with band over pull noodle Side bilateral Equipment Used 6 foam roller, level 2 band Comments Cues for elbows at side, 10 reps slowly Chicken stretch Side bilateral Equipment Used 6 foam roller Comments Scapular retraction with thoracic extension Posterior capsule stretch Side bilateral Equipment Used 6 foam roller Comments Pt performs with resisted isometric today Standing Exercises standing row Comments Pt has been performing at home without trouble IR stretch with towel Comments Pt will get back with this one , no questions Racquet ball massage Comments Performing as needed Theracane MWM for upper traps and levator Comments Performing as needed PT-OP-R Modalities Start: 09/11/20 14:43 Freq: Status: Active Protocol: Document 10/13/20 13:47 SP (Rec: 10/13/20 14:31 SP [id number]) Hot Pack/Cold Pack Treatment cryocuf Location R shld Patient Position Sitting Treatment Duration (minutes) 10 Patient Tolerance Good PT-OP-T Assessment and Plan Start: 09/11/20 14:43 Freq: Status: Active Protocol: Document 12/11/20 13:50 MB (Rec: 12/11/20 14:28 MB [id number]) Physical Therapy Assessment Goals 6 [facility] Goal (LTG) Pt will be able to lift a kettle full of water to allow return to [place] by 01/13/21. 11/27/20: progressing: able to tolerate D2 flexion supine over foam roller using Tb #1 resistance painfree added to HEP today. LTG Duration 8 weeks 5 [facility] Goal (LTG) Pt will perform progressive HEP with I including ROM, strengthening, postural, core and balance exercises to improve function by 01/13/21. 11/13/20: Pt is performing exercises over pool noodle including AROM exercises and posterior capsule stretch 11/27/20: initiated D2 flexion supine w/ #1 TB and standing resisted rows #2. LTG Duration 8 weeks 4 [employer] Goal (LTG) Pt will be able to return to gardening for 20 minutes by . 11/13/20: Pt has been back to pulling weeds but cannot dig LTG Duration 8 weeks 3 [facility] Goal (LTG) Pt will be able to perform spinning yarn and knitting without pain by 01/13/21. 11/13/20: Pt has not yet spinned yarn or knitted LTG Duration 8 weeks 1 [facility] Goal (LTG) Pt will present with an improved QuickDASH score to reflect no more than 20% impairment to improve ADLs and IADLs by 01/13/21. 11/13/20: QuickDASH score reflects 45.25% impairment LTG Duration 8 weeks Assessment Summary Assessment Progressed strengthening today and pt performs well. Shoulder flexion and triceps and biceps strengthening with band over foam roller does increase right upper traps/ scalenes/ first rib and so ed pt to do this exercise sparingly. Physical Therapy Plan Frequency and Duration Frequency of Treatment 2x/Week Duration of Treatment 8 weeks Plan of Care Start Date 11/13/20 Plan of Care End Date 01/13/21 Therapeutic Interventions Therapeutic Interventions Balance Training,Canalithic Repositioning,Gait Training, Home Exercise Program,Joint Mobilizations,Manual Therapy, Neuromuscular Re-education, Orthotic/Prosthetic Management ,Patient/Caregiver Education, Self-Care/Home Management,Soft Tissue Mobilization,Taping, Therapeutic Activities, Therapeutic Exercises Modalities Cold Pack/Ice Massage,Electric Stimulation,Hot Packs, Ultrasound Next Visit Focus/Plan Next Note Type Treatment Note Next Visit Plan Consider ongoing Counterstrain , standing strengthening with band, PNF, body blade
--- NOTE | 2020-12-15 13:00 | PT.OTN ---
Current Diagnoses Complete rotator cuff tear or rupture of right shoulder, not specified as traumatic (12/15/20) Physical Therapy Treatment Note PT-OP-A Visit Information Start: 09/11/20 14:43 Freq: Status: Active Protocol: Document 12/15/20 12:16 MB (Rec: 12/15/20 13:00 MB [id number]) Out-Patient Physical Therapy Visit Information Visit Information Visit Type Treatment Note Visit Note Do progress for pt since she is leaving for [place] for post-op 12/28/20 Visit Start Time 12:16 Visit Stop Time 12:58 Total Visit Minutes 42 Visit Number 17 Evaluation Information Evaluation Date 09/18/20 Precautions Precautions Pt underwent arthroscopic surgery right shoulder with grafting on 08/07/20. Received provider note that states continue gentle strengthening with PT and HEP as directed. AM discussed including heavy lifting, weighted overhead activities and anything with susceptible abrupt stops/jolts . PT-OP-B Current Condition Start: 09/11/20 14:43 Freq: Status: Active Protocol: Document 09/18/20 12:59 MB (Rec: 09/18/20 13:15 MB [id number]) Current Condition History of Current Condition Onset Date 08/07/20 Current Complaints Inability to use right arm much post-op History of Current Condition Pt underwent right shoulder arthroscopic surgery on with op report stating right bicep and subscapularis repairs and extensive debridement with grafting technique. Pt's surgeon is in [place]. She just moved up to [place]. Pt is right handed. She has just gotten back in the bed and is trying to lie flatter with sleeping. Pt denies numbness and tingling and pain. PMH includes: left rotator cuff surgery 7 years ago and PT Prior Treatments and Tests Left shoulder surgery and PT, PT for left hamstrings and achilles problems Treatment Goals Patient/Caregiver Goals To learn how to use her arm safely PT-OP-C Subjective Start: 09/11/20 14:43 Freq: Status: Active Protocol: Document 12/15/20 12:16 MB (Rec: 12/15/20 13:00 MB [id number]) OP-PT Subjective Patient Comments Patient Comments Pt states that her right arm is getting stronger with the exercises. She was able to use her right arm to help move fruit and compost over the weekend. PT-OP-J Posture/Palpation/Skin Start: 09/11/20 14:43 Freq: Status: Active Protocol: Document 09/18/20 12:59 MB (Rec: 09/18/20 15:52 MB [id number]) Posture Evaluation Comments Posture Comments Standing posture: pt does allow her right arm to dangle by her side: forward head, rounded shoulders, increased thoracic kyphosis, increased lumbar lordosis, right upper thoracic spine and scapula are tight with mildly protracted right scapula, mild upper thoracic convexity to the right. Skin Assessment Other Assessments Skin Assessment Comments Right shoulder arthroscopic scars healing well and no edema or ecchymosis, fascial tension over right posterior delt and triceps and pt states that graft had a pulling effect PT-OP-K Range of Motion Start: 09/11/20 14:43 Freq: Status: Active Protocol: Document 09/18/20 12:59 MB (Rec: 09/18/20 15:52 MB [id number]) Cervical Spine Range of Motion Cervical Spine Active Testing Position Standing Flexion 43 Extension 35 Rotation Left 54 Rotation Right 56 Shoulder Goniometric Range of Motion Shoulder Right Shoulder ROM WFL No Testing Position Standing and supine Comments PROM: in standing flexion to 40 deg and abduction to 25 deg and pt does not perform active assistance. In supine: flexion to 80 deg and abduction to 73 deg. With shoulder in 73 deg abduction, ER 0 deg and IR 5 deg Left Shoulder ROM WFL Yes Testing Position Standing Shoulder ROM Limitations Comments Guarding and post-op limitations PT-OP-M Strength Start: 09/11/20 14:43 Freq: Status: Active Protocol: Document 09/18/20 12:59 MB (Rec: 09/18/20 15:52 MB [id number]) Shoulder Strength Shoulder Manual Muscle Testing Left Flexion 5 Normal Abduction (C5) 5 Normal External Rotation 5 Normal Internal Rotation 5 Normal Right Comments MMT deferred post-op 6 weeks Elbow/Forearm Strength Elbow and Forearm Manual Muscle Testing Left Flexion (C6) 5 Normal Extension (C7) 5 Normal Pronation 5 Normal Supination 5 Normal Right Comments MMT deferred post-op Wrist Strength Wrist Manual Muscle Testing Left Flexion (C7) 5 Normal Extension (C6) 5 Normal Right Comments MMT deferred post-op d/t pt guarding PT-OP-Q Treatments Start: 09/11/20 14:43 Freq: Status: Active Protocol: Document 12/15/20 12:16 MB (Rec: 12/15/20 13:00 MB [id number]) Cardio Equipment Upper Body Ergometer (UBE) Duration (Minutes) 10 Other 1' forward and 1' backward Therapeutic Exercises Standing Exercises Body blade Side bilateral Comments R shoulder flexion, abduction, static and dynamic, core and balance as well Neuro Re-Education Treatment Movement Re-Education Movement Re-education Activities B first rib mobs, gentle grade II, right pect STM and positional release, right deltoid and biceps STM and positional release, right ribs PA mobs grade II, Counterstrain scan and treated long bone periosteal point for right humerus PT-OP-R Modalities Start: 09/11/20 14:43 Freq: Status: Active Protocol: Document 10/13/20 13:47 SP (Rec: 10/13/20 14:31 SP [email or web address]) Hot Pack/Cold Pack Treatment cryocuf Location R shld Patient Position Sitting Treatment Duration (minutes) 10 Patient Tolerance Good PT-OP-T Assessment and Plan Start: 09/11/20 14:43 Freq: Status: Active Protocol: Document 12/15/20 12:16 MB (Rec: 12/15/20 13:00 MB [id number]) Physical Therapy Assessment Goals 6 [employer] Goal (LTG) Pt will be able to lift a kettle full of water to allow return to [place] by 01/13/21. 11/27/20: progressing: able to tolerate D2 flexion supine over foam roller using Tb #1 resistance painfree added to HEP today. LTG Duration 8 weeks 5 [employer] Goal (LTG) Pt will perform progressive HEP with I including ROM, strengthening, postural, core and balance exercises to improve function by 01/13/21. 11/13/20: Pt is performing exercises over pool noodle including AROM exercises and posterior capsule stretch 11/27/20: initiated D2 flexion supine w/ #1 TB and standing resisted rows #2. LTG Duration 8 weeks 4 Long-Term Goal (LTG) Pt will be able to return to gardening for 20 minutes by . 11/13/20: Pt has been back to pulling weeds but cannot dig LTG Duration 8 weeks 3 Long-Term Goal (LTG) Pt will be able to perform spinning yarn and knitting without pain by 01/13/21. 11/13/20: Pt has not yet spinned yarn or knitted LTG Duration 8 weeks 1 Long-Term Goal (LTG) Pt will present with an improved QuickDASH score to reflect no more than 20% impairment to improve ADLs and IADLs by 01/13/21. 11/13/20: QuickDASH score reflects 45.25% impairment LTG Duration 8 weeks Assessment Summary Assessment Initiated Body Blade today and pt tries both the classic and CxT and she will think about which one she likes and if she would like to get one for home. Manual work today and right arm is feeling better. Physical Therapy Plan Frequency and Duration Frequency of Treatment 2x/Week Duration of Treatment 8 weeks Plan of Care Start Date 11/13/20 Plan of Care End Date 01/13/21 Therapeutic Interventions Therapeutic Interventions Balance Training,Canalithic Repositioning,Gait Training, Home Exercise Program,Joint Mobilizations,Manual Therapy, Neuromuscular Re-education, Orthotic/Prosthetic Management ,Patient/Caregiver Education, Self-Care/Home Management,Soft Tissue Mobilization,Taping, Therapeutic Activities, Therapeutic Exercises Modalities Cold Pack/Ice Massage,Electric Stimulation,Hot Packs, Ultrasound Next Visit Focus/Plan Next Note Type Progress Note Next Visit Plan Consider Counterstrain, wall push ups and wall plank
--- NOTE | 2020-12-18 13:08 | PT.OTN ---
Current Diagnoses Complete rotator cuff tear or rupture of right shoulder, not specified as traumatic (12/18/20) Physical Therapy Treatment Note PT-OP-A Visit Information Start: 09/11/20 14:43 Freq: Status: Active Protocol: Document 12/18/20 12:16 MB (Rec: 12/18/20 13:07 MB [id number]) Out-Patient Physical Therapy Visit Information Visit Information Visit Type Progress Note Visit Start Time 12:16 Visit Stop Time 13:00 Total Visit Minutes 44 Visit Number 18 Evaluation Information Evaluation Date 09/18/20 Precautions Precautions Pt underwent arthroscopic surgery right shoulder with grafting on 08/07/20. Received provider note that states continue gentle strengthening with PT and HEP as directed. AM discussed including heavy lifting, weighted overhead activities and anything with susceptible abrupt stops/jolts . PT-OP-B Current Condition Start: 09/11/20 14:43 Freq: Status: Active Protocol: Document 09/18/20 12:59 MB (Rec: 09/18/20 13:15 MB [id number]) Current Condition History of Current Condition Onset Date 08/07/20 Current Complaints Inability to use right arm much post-op History of Current Condition Pt underwent right shoulder arthroscopic surgery on with op report stating right bicep and subscapularis repairs and extensive debridement with grafting technique. Pt's surgeon is in [place]. She just moved up to [place]. Pt is right handed. She has just gotten back in the bed and is trying to lie flatter with sleeping. Pt denies numbness and tingling and pain. 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 Everything else is going pretty well. She had no clicking with doing the exercises. She can finally sleep on her right side. PT-OP-J Posture/Palpation/Skin Start: 09/11/20 14:43 Freq: Status: Active Protocol: Document 09/18/20 12:59 MB (Rec: 09/18/20 15:52 MB [id number]) Posture Evaluation Comments Posture Comments Standing posture: pt does allow her right arm to dangle by her side: forward head, rounded shoulders, increased thoracic kyphosis, increased lumbar lordosis, right upper thoracic spine and scapula are tight with mildly protracted right scapula, mild upper thoracic convexity to the right. Skin Assessment Other Assessments Skin Assessment Comments Right shoulder arthroscopic scars healing well and no edema or ecchymosis, fascial tension over right posterior delt and triceps and pt states that graft had a pulling effect PT-OP-K Range of Motion Start: 09/11/20 14:43 Freq: Status: Active Protocol: Document 09/18/20 12:59 MB (Rec: 09/18/20 15:52 MB [id number]) Cervical Spine Range of Motion Cervical Spine Active Testing Position Standing Flexion 43 Extension 35 Rotation Left 54 Rotation Right 56 Shoulder Goniometric Range of Motion Shoulder Right Shoulder ROM WFL No Testing Position Standing and supine Comments PROM: in standing flexion to 40 deg and abduction to 25 deg and pt does not perform active assistance. In supine: flexion to 80 deg and abduction to 73 deg. With shoulder in 73 deg abduction, ER 0 deg and IR 5 deg Left Shoulder ROM WFL Yes Testing Position Standing Shoulder ROM Limitations Comments Guarding and post-op limitations PT-OP-M Strength Start: 09/11/20 14:43 Freq: Status: Active Protocol: Document 09/18/20 12:59 MB (Rec: 09/18/20 15:52 MB [id number]) Shoulder Strength Shoulder Manual Muscle Testing Left Flexion 5 Normal Abduction (C5) 5 Normal External Rotation 5 Normal Internal Rotation 5 Normal Right Comments MMT deferred post-op 6 weeks Elbow/Forearm Strength Elbow and Forearm Manual Muscle Testing Left Flexion (C6) 5 Normal Extension (C7) 5 Normal Pronation 5 Normal Supination 5 Normal Right Comments MMT deferred post-op Wrist Strength Wrist Manual Muscle Testing Left Flexion (C7) 5 Normal Extension (C6) 5 Normal Right Comments MMT deferred post-op d/t pt guarding PT-OP-Q Treatments Start: 09/11/20 14:43 Freq: Status: Active Protocol: Document 12/18/20 12:16 MB (Rec: 12/18/20 13:07 MB [id number]) Cardio Equipment Upper Body Ergometer (UBE) Duration (Minutes) 20 Other 1' forward and 1' backward, performed during goal review/ QuickDASH Therapeutic Exercises Standing Exercises Wall push-ups Comments Pt performs well today Body blade Comments CxT blade, PT demos a program for pt and she videos for HEP Other Exercises HEP review Comments Verbally reviewed her HEP during progress note today PT-OP-R Modalities Start: 09/11/20 14:43 Freq: Status: Active Protocol: Document 10/13/20 13:47 SP (Rec: 10/13/20 14:31 SP [id number]) Hot Pack/Cold Pack Treatment cryocuf Location R shld Patient Position Sitting Treatment Duration (minutes) 10 Patient Tolerance Good PT-OP-T Assessment and Plan Start: 09/11/20 14:43 Freq: Status: Active Protocol: Document 12/18/20 12:16 MB (Rec: 12/18/20 13:07 MB [id number]) Physical Therapy Assessment Goals 8 Mcfp Goal (LTG) Pt will perform modified push- ups, pilates and yoga exercises with little to no right arm pain or paresthesia by 02/10/21. LTG Duration 6 weeks 6 Mcfp Goal (LTG) Pt will be able to lift a kettle full of water to allow return to clara by 02/10/21. 12/18/20: Pt is carefully holding kettle with arms bent at side, progress LTG Duration 6 weeks 5 Mcfp Goal (LTG) Pt will perform progressive HEP with I including ROM, strengthening, postural, core and balance exercises to improve function by 02/10/21. 12/18/20: Pt is performing exercises over pool noodle including and posterior capsule stretch, band strengthening, pect stretch, standing rowing. She con't her own self-massage techniques. LTG Duration 6 weeks 4 Sales Performance Manager Goal (LTG) Pt will be able to return to gardening for 20 minutes by . 12/18/20: Pt has been back to pulling weeds but cannot dig or shovel yet. LTG Duration 6 weeks 3 Mcfp Goal (LTG) Pt will be able to perform spinning yarn and knitting without pain by 02/10/21. 12/18/20: Pt has not yet spinned yarn or knitted but she can do the spinning and knitting motions and is concerned that tingling may be the limiting factor. She has been picking fruit and clara . LTG Duration 6 weeks 1 Sales Performance Manager Goal (LTG) Pt will present with an improved QuickDASH score to reflect no more than 20% impairment to improve ADLs and IADLs by 02/10/21. 12/18/20: QuickDASH score reflects 36.36% impairment 11/13/20: QuickDASH score reflects 45.25% iimpairment LTG Duration 6 weeks Assessment Summary Assessment Progress note today. R shoulder AROM in standin deg flexion; 162 deg abduction; IR behind back is normal and the same as left hand, to around T8. MMT right shoulder in standin/5 flexion; 4/5 abduction; ER 4+/ 5; IR 5/5; elbow flexion 4+/5; elbow extension 5/5; supination 5/5; pronation 4+/5 (stronger then the left which is 4/5); wrist flexion and extension 5/5; right bartender helper is weaker than the left when squeezing PT's fingers. Pt has progressed towards range, strength, QuickDASH and exercise goals since starting PT. She has still not gotten back to higher level tasks of digging, shoveling, spinning yarn, and yoga. Pt is able to perform wall push-ups well today. PT demos a Body Blade program and pt videos today. She has ordered a Body Blade. Will progress yoga exercises in future treatments. Pt returns to doctor 12/28/20 and will ask about return to some of the activities previously listed. She is concerned about tingling in wrist and hand and will speak with provider about this. She will benefit from ongoing PT to progress exercises, goals and for further manual PT. Physical Therapy Plan Frequency and Duration Frequency of Treatment 2x/Week Duration of Treatment 6 weeks Plan of Care Start Date 12/18/20 Plan of Care End Date 02/10/21 Therapeutic Interventions Therapeutic Interventions Balance Training,Canalithic Repositioning,Gait Training, Home Exercise Program,Joint Mobilizations,Manual Therapy, Neuromuscular Re-education, Orthotic/Prosthetic Management ,Patient/Caregiver Education, Self-Care/Home Management,Soft Tissue Mobilization,Taping, Therapeutic Activities, Therapeutic Exercises Modalities Cold Pack/Ice Massage,Electric Stimulation,Hot Packs, Ultrasound Next Visit Focus/Plan Next Note Type Treatment Note Next Visit Plan Consider Counterstrain with particular scan for long bones of right distal UE, wall plank, progressive yoga exercises
--- NOTE | 2020-12-18 13:08 | PT.OPPOC ---
Physical, Occupational & Speech Therapy At [facility] Current Diagnoses Complete rotator cuff tear or rupture of right shoulder, not specified as traumatic (12/18/20) Visit Care Team Role Provider Type Referring Provider Specialty: Address: Phone: Fax: Email: Other Providers Specialty: Address: Phone: Fax: Email: Mer Crane PA-C Attending Provider Non-Staff Primary Care Provider Specialty: Medical Address[facility] [address], [place], [address] Email: Plan Of Care PT-OP-T Assessment and Plan Start: 09/11/20 14:43 Freq: Status: Active Protocol: Document 12/18/20 12:16 MB (Rec: 12/18/20 13:07 MB [id number]) Physical Therapy Assessment Goals 8 Usp Goal (LTG) Pt will perform modified push- ups, pilates and yoga exercises with little to no right arm pain or paresthesia by 02/10/21. LTG Duration 6 weeks 6 Superintendent Division Goal (LTG) Pt will be able to lift a kettle full of water to allow return to clara by 02/10/21. 12/18/20: Pt is carefully holding kettle with arms bent at side, progress LTG Duration 6 weeks 5 Superintendent Division Goal (LTG) Pt will perform progressive HEP with I including ROM, strengthening, postural, core and balance exercises to improve function by 02/10/21. 12/18/20: Pt is performing exercises over pool noodle including and posterior capsule stretch, band strengthening, pect stretch, standing rowing. She con't her own self-massage techniques. LTG Duration 6 weeks 4 Usp Goal (LTG) Pt will be able to return to gardening for 20 minutes by . 12/18/20: Pt has been back to pulling weeds but cannot dig or shovel yet. LTG Duration 6 weeks 3 Usp Goal (LTG) Pt will be able to perform spinning yarn and knitting without pain by 02/10/21. 12/18/20: Pt has not yet spinned yarn or knitted but she can do the spinning and knitting motions and is concerned that tingling may be the limiting factor. She has been picking fruit and clara . LTG Duration 6 weeks 1 Superintendent Division Goal (LTG) Pt will present with an improved QuickDASH score to reflect no more than 20% impairment to improve ADLs and IADLs by 02/10/21. 12/18/20: QuickDASH score reflects 36.36% impairment 11/13/20: QuickDASH score reflects 45.25% iimpairment LTG Duration 6 weeks Assessment Summary Assessment Progress note today. R shoulder AROM in standin deg flexion; 162 deg abduction; IR behind back is normal and the same as left hand, to around T8. MMT right shoulder in standin/5 flexion; 4/5 abduction; ER 4+/ 5; IR 5/5; elbow flexion 4+/5; elbow extension 5/5; supination 5/5; pronation 4+/5 (stronger then the left which is 4/5); wrist flexion and extension 5/5; right policy change clerks supervisor is weaker than the left when squeezing PT's fingers. Pt has progressed towards range, strength, QuickDASH and exercise goals since starting PT. She has still not gotten back to higher level tasks of digging, shoveling, spinning yarn, and yoga. Pt is able to perform wall push-ups well today. PT demos a Body Blade program and pt videos today. She has ordered a Body Blade. Will progress yoga exercises in future treatments. Pt returns to doctor 12/28/20 and will ask about return to some of the activities previously listed. She is concerned about tingling in wrist and hand and will speak with provider about this. She will benefit from ongoing PT to progress exercises, goals and for further manual PT. Physical Therapy Plan Frequency and Duration Frequency of Treatment 2x/Week Duration of Treatment 6 weeks Plan of Care Start Date 12/18/20 Plan of Care End Date 02/10/21 Therapeutic Interventions Therapeutic Interventions Balance Training,Canalithic Repositioning,Gait Training, Home Exercise Program,Joint Mobilizations,Manual Therapy, Neuromuscular Re-education, Orthotic/Prosthetic Management ,Patient/Caregiver Education, Self-Care/Home Management,Soft Tissue Mobilization,Taping, Therapeutic Activities, Therapeutic Exercises Modalities Cold Pack/Ice Massage,Electric Stimulation,Hot Packs, Ultrasound Next Visit Focus/Plan Next Note Type Treatment Note Next Visit Plan Consider Counterstrain with particular scan for long bones of right distal UE, wall plank, progressive yoga exercises Plan of Care Dates Plan of Care Start Date 12/18/20 Plan of Care End Date 02/10/21 Electronically Signed by: Aminah Malik, PT 12/18/20 [id number] Please Sign and Return: I have reviewed this Plan of Care and certify that the skilled therapy services above are required to meet the patient?s needs. Physician Signature Date Printed Name and Credentials Clinical Instructor Signature Printed Name and Credentials
--- NOTE | 2021-01-08 13:00 | PT.OTN ---
Current Diagnoses Complete rotator cuff tear or rupture of right shoulder, not specified as traumatic (01/08/21) Physical Therapy Treatment Note PT-OP-A Visit Information Start: 09/11/20 14:43 Freq: Status: Active Protocol: Document 01/08/21 12:18 SP (Rec: 01/08/21 13:02 SP [id number]) Out-Patient Physical Therapy Visit Information Visit Information Visit Type Treatment Note Visit Note SHANAE Cline attended and provided cues and education throughout tx, supervised by NILSA Hsu Visit Start Time 12:18 Visit Stop Time 13:00 Total Visit Minutes 42 Visit Number 19 Number of ACCESS CLERK Visits 1 Evaluation Information Evaluation Date 09/18/20 Precautions Precautions Pt underwent arthroscopic surgery right shoulder with grafting on 08/07/20. Received provider note that states continue gentle strengthening with PT and HEP as directed. AM discussed including heavy lifting, weighted overhead activities and anything with susceptible abrupt stops/jolts . PT-OP-B Current Condition Start: 09/11/20 14:43 Freq: Status: Active Protocol: Document 09/18/20 12:59 MB (Rec: 09/18/20 13:15 MB [id number]) Current Condition History of Current Condition Onset Date 08/07/20 Current Complaints Inability to use right arm much post-op History of Current Condition Pt underwent right shoulder arthroscopic surgery on with op report stating right bicep and subscapularis repairs and extensive debridement with grafting technique. Pt's surgeon is in [place]. She just moved up to [place]. Pt is right handed. She has just gotten back in the bed and is trying to lie flatter with sleeping. Pt denies numbness and tingling and pain. PMH includes: left rotator cuff surgery 7 years ago and PT Prior Treatments and Tests Left shoulder surgery and PT, PT for left hamstrings and achilles problems Treatment Goals Patient/Caregiver Goals To learn how to use her arm safely PT-OP-C Subjective Start: 09/11/20 14:43 Freq: Status: Active Protocol: Document 01/08/21 12:18 SP (Rec: 01/08/21 13:02 SP [id number]) OP-PT Subjective Patient Comments Patient Comments Pt stated drove down to [place] to see physician for inperson follow up, physician pleased with ROM and recommended progress into strengthening. Pt reports still having some tingling in R UE 1-3rd MTPs but noted less while driving than in past. PT-OP-J Posture/Palpation/Skin Start: 09/11/20 14:43 Freq: Status: Active Protocol: Document 09/18/20 12:59 MB (Rec: 09/18/20 15:52 MB [id number]) Posture Evaluation Comments Posture Comments Standing posture: pt does allow her right arm to dangle by her side: forward head, rounded shoulders, increased thoracic kyphosis, increased lumbar lordosis, right upper thoracic spine and scapula are tight with mildly protracted right scapula, mild upper thoracic convexity to the right. Skin Assessment Other Assessments Skin Assessment Comments Right shoulder arthroscopic scars healing well and no edema or ecchymosis, fascial tension over right posterior delt and triceps and pt states that graft had a pulling effect PT-OP-K Range of Motion Start: 09/11/20 14:43 Freq: Status: Active Protocol: Document 01/08/21 12:18 SP (Rec: 01/08/21 13:02 SP [id number]) Shoulder Goniometric Range of Motion Shoulder Right Shoulder ROM WFL No Testing Position Standing Flexion 145 Extension 62 Abduction 138 External Rotation at 0 degrees Abduction 64 Internal Rotation Behind Back (text) T6 Comments behind back 1st MTP PT-OP-M Strength Start: 09/11/20 14:43 Freq: Status: Active Protocol: Document 09/18/20 12:59 MB (Rec: 09/18/20 15:52 MB [id number]) Shoulder Strength Shoulder Manual Muscle Testing Left Flexion 5 Normal Abduction (C5) 5 Normal External Rotation 5 Normal Internal Rotation 5 Normal Right Comments MMT deferred post-op 6 weeks Elbow/Forearm Strength Elbow and Forearm Manual Muscle Testing Left Flexion (C6) 5 Normal Extension (C7) 5 Normal Pronation 5 Normal Supination 5 Normal Right Comments MMT deferred post-op Wrist Strength Wrist Manual Muscle Testing Left Flexion (C7) 5 Normal Extension (C6) 5 Normal Right Comments MMT deferred post-op d/t pt guarding PT-OP-Q Treatments Start: 09/11/20 14:43 Freq: Status: Active Protocol: Document 01/08/21 12:18 SP (Rec: 01/08/21 13:02 SP [id number]) Cardio Equipment Upper Body Ergometer (UBE) Duration (Minutes) 8 RPM 75 Other 1' forward and 1' backward, performed during goal review/ QuickDASH Therapeutic Exercises Supine Exercises D2 flexion Supine Exercise Name performed in standing Side right Resistance TB #1 Equipment Used STANDING Reps/Minutes 10 reps slowly Comments PNF sword and sheath- segmental scap/ humeral dissociation Standing Exercises D1 ext Standing Exercise Name added to HEP Side right Resistance Tb #1 Reps/Minutes x10 Comments cued scap stab and proper form Shld ER, IR Standing Exercise Name w/ towel under arm Resistance TB #2 Equipment Used added to HEP Reps/Minutes x15 Comments cued no UT recruitment, elbow at side Wall push-ups Reps/Minutes x10 Comments Pt performs well today Body blade Standing Exercise Name FF, ABD, HADD, HABD, IR/ ER arm at side Side right Comments good demo, tiring and progress in repeated standing row Standing Exercise Name reviewed HEP Resistance TB #3 Comments good form, painfree PT-OP-R Modalities Start: 09/11/20 14:43 Freq: Status: Active Protocol: Document 10/13/20 13:47 SP (Rec: 10/13/20 14:31 SP [id number]) Hot Pack/Cold Pack Treatment cryocuf Location R shld Patient Position Sitting Treatment Duration (minutes) 10 Patient Tolerance Good PT-OP-T Assessment and Plan Start: 09/11/20 14:43 Freq: Status: Active Protocol: Document 01/08/21 12:18 SP (Rec: 01/08/21 13:02 SP [id number]) Physical Therapy Assessment Goals 8 Mcfp Goal (LTG) Pt will perform modified push- ups, pilates and yoga exercises with little to no right arm pain or paresthesia by 02/10/21. LTG Duration 6 weeks 6 Furniture Sales Consultant Goal (LTG) Pt will be able to lift a kettle full of water to allow return to clara by 02/10/21. 12/18/20: Pt is carefully holding kettle with arms bent at side, progress LTG Duration 6 weeks 5 Mcfp Goal (LTG) Pt will perform progressive HEP with I including ROM, strengthening, postural, core and balance exercises to improve function by 02/10/21. 12/18/20: Pt is performing exercises over pool noodle including and posterior capsule stretch, band strengthening, pect stretch, standing rowing. She con't her own self-massage techniques. LTG Duration 6 weeks 4 Mcfp Goal (LTG) Pt will be able to return to gardening for 20 minutes by . 12/18/20: Pt has been back to pulling weeds but cannot dig or shovel yet. LTG Duration 6 weeks 3 Mcfp Goal (LTG) Pt will be able to perform spinning yarn and knitting without pain by 02/10/21. 12/18/20: Pt has not yet spinned yarn or knitted but she can do the spinning and knitting motions and is concerned that tingling may be the limiting factor. She has been picking fruit and clara . LTG Duration 6 weeks 1 Mcfp Goal (LTG) Pt will present with an improved QuickDASH score to reflect no more than 20% impairment to improve ADLs and IADLs by 02/10/21. 12/18/20: QuickDASH score reflects 36.36% impairment 11/13/20: QuickDASH score reflects 45.25% iimpairment LTG Duration 6 weeks Assessment Summary Assessment Pt progressing in R shld AROM all directions. Saw physician and reports able to progress in strengthening, pt and front end loader driver looking for documentation. Responded well to initiated PNF, IR/ ER and review HEP. Will assess next tx if need many more appts. Physical Therapy Plan Frequency and Duration Frequency of Treatment 2x/Week Duration of Treatment 6 weeks Plan of Care Start Date 12/18/20 Plan of Care End Date 02/10/21 Therapeutic Interventions Therapeutic Interventions Balance Training,Canalithic Repositioning,Gait Training, Home Exercise Program,Joint Mobilizations,Manual Therapy, Neuromuscular Re-education, Orthotic/Prosthetic Management ,Patient/Caregiver Education, Self-Care/Home Management,Soft Tissue Mobilization,Taping, Therapeutic Activities, Therapeutic Exercises Modalities Cold Pack/Ice Massage,Electric Stimulation,Hot Packs, Ultrasound Next Visit Focus/Plan Next Note Type Treatment Note Next Visit Plan recheck strengthening HEP. POC : recheck amt appts and progress DC. Consider Counterstrain with particular scan for long bones of right distal UE, wall plank, progressive yoga exercises
--- NOTE | 2021-01-13 15:25 | PT.OTN ---
Current Diagnoses Complete rotator cuff tear or rupture of right shoulder, not specified as traumatic (01/13/21) Physical Therapy Treatment Note PT-OP-A Visit Information Start: 09/11/20 14:43 Freq: Status: Active Protocol: Document 01/13/21 14:30 MB (Rec: 01/13/21 15:25 MB [id number]) Out-Patient Physical Therapy Visit Information Visit Information Visit Type Progress Note Visit Start Time 14:30 Visit Stop Time 15:15 Total Visit Minutes 45 Visit Number 20 Evaluation Information Evaluation Date 09/18/20 Precautions Precautions Pt underwent arthroscopic surgery right shoulder with grafting on 08/07/20. Received provider note that states continue gentle strengthening with PT and HEP as directed. AM discussed including heavy lifting, weighted overhead activities and anything with susceptible abrupt stops/jolts . PT-OP-B Current Condition Start: 09/11/20 14:43 Freq: Status: Active Protocol: Document 09/18/20 12:59 MB (Rec: 09/18/20 13:15 MB [id number]) Current Condition History of Current Condition Onset Date 08/07/20 Current Complaints Inability to use right arm much post-op History of Current Condition Pt underwent right shoulder arthroscopic surgery on with op report stating right bicep and subscapularis repairs and extensive debridement with grafting technique. Pt's surgeon is in [place]. She just moved up to [place]. Pt is right handed. She has just gotten back in the bed and is trying to lie flatter with sleeping. Pt denies numbness and tingling and pain. PMH includes: left rotator cuff surgery 7 years ago and PT Prior Treatments and Tests Left shoulder surgery and PT, PT for left hamstrings and achilles problems Treatment Goals Patient/Caregiver Goals To learn how to use her arm safely PT-OP-C Subjective Start: 09/11/20 14:43 Freq: Status: Active Protocol: Document 01/13/21 14:30 MB (Rec: 01/13/21 15:25 MB [id number]) OP-PT Subjective Patient Comments Patient Comments Pt states that she doesn't know if she is going to be able to do the punching action of shoveling. The PA-C was happy with her progress with PT. It's all about strength now and building up resilance. She can still feel the band resistance and body blade. PT-OP-J Posture/Palpation/Skin Start: 09/11/20 14:43 Freq: Status: Active Protocol: Document 09/18/20 12:59 MB (Rec: 09/18/20 15:52 MB [id number]) Posture Evaluation Comments Posture Comments Standing posture: pt does allow her right arm to dangle by her side: forward head, rounded shoulders, increased thoracic kyphosis, increased lumbar lordosis, right upper thoracic spine and scapula are tight with mildly protracted right scapula, mild upper thoracic convexity to the right. Skin Assessment Other Assessments Skin Assessment Comments Right shoulder arthroscopic scars healing well and no edema or ecchymosis, fascial tension over right posterior delt and triceps and pt states that graft had a pulling effect PT-OP-K Range of Motion Start: 09/11/20 14:43 Freq: Status: Active Protocol: Document 01/08/21 12:18 SP (Rec: 01/08/21 13:02 SP [id number]) Shoulder Goniometric Range of Motion Shoulder Right Shoulder ROM WFL No Testing Position Standing Flexion 145 Extension 62 Abduction 138 External Rotation at 0 degrees Abduction 64 Internal Rotation Behind Back (text) T6 Comments behind back 1st MTP PT-OP-M Strength Start: 09/11/20 14:43 Freq: Status: Active Protocol: Document 09/18/20 12:59 MB (Rec: 09/18/20 15:52 MB [id number]) Shoulder Strength Shoulder Manual Muscle Testing Left Flexion 5 Normal Abduction (C5) 5 Normal External Rotation 5 Normal Internal Rotation 5 Normal Right Comments MMT deferred post-op 6 weeks Elbow/Forearm Strength Elbow and Forearm Manual Muscle Testing Left Flexion (C6) 5 Normal Extension (C7) 5 Normal Pronation 5 Normal Supination 5 Normal Right Comments MMT deferred post-op Wrist Strength Wrist Manual Muscle Testing Left Flexion (C7) 5 Normal Extension (C6) 5 Normal Right Comments MMT deferred post-op d/t pt guarding PT-OP-Q Treatments Start: 09/11/20 14:43 Freq: Status: Active Protocol: Document 01/13/21 14:30 MB (Rec: 01/13/21 15:25 MB [id number]) Cardio Equipment Upper Body Ergometer (UBE) Duration (Minutes) 15 Other 1' forward and 1' backward Therapeutic Exercises Standing Exercises Supination and pronation Comments 2 lb and 3 lb hand weight, standing with elbows at side, also pouring motio Moving pot Standing Exercise Name Move in diagonals and forward and back and side to side Comments Moving bucket with handle with 8 lb weight from front to back burner mimic Tossing basketball Comments Bounce pass, chest pass, overhead pass, side pass x10 each Body blade Comments Reviewed exercises with yellow blade Manual Therapy Treatment Other Other Manual Treatments Pt supine: STM right pect, STM and MWM right proximal biceps tendon, biceps belly, middle deltoid and pt responds well and some popping noises and palpation with this PT-OP-R Modalities Start: 09/11/20 14:43 Freq: Status: Active Protocol: Document 10/13/20 13:47 SP (Rec: 10/13/20 14:31 SP [id number]) Hot Pack/Cold Pack Treatment cryocuf Location R shld Patient Position Sitting Treatment Duration (minutes) 10 Patient Tolerance Good PT-OP-T Assessment and Plan Start: 09/11/20 14:43 Freq: Status: Active Protocol: Document 01/13/21 14:30 MB (Rec: 01/13/21 15:25 MB [id number]) Physical Therapy Assessment Goals 8 Contact Lens Assistant Goal (LTG) Pt will perform modified push- ups, pilates and yoga exercises with little to no right arm pain or paresthesia by 02/10/21. 01/13/21: Pt has started modified push-ups and they work and don't hurt. LTG Duration 1 month 6 Contact Lens Assistant Goal (LTG) Pt will be able to lift a kettle full of water to allow return to clara by 02/10/21. 01/13/21: Pt is carefully holding kettle with arms bent at side, she is self-limiting LTG Duration 1 month 5 Contact Lens Assistant Goal (LTG) Pt will perform progressive HEP with I including ROM, strengthening, postural, core and balance exercises to improve function by 02/10/21. 01/13/21: Pt is performing exercises over pool noodle including and posterior capsule stretch, band strengthening, pect stretch, standing rowing, Body Blade. She con't her own self-massage techniques. LTG Duration 1 month 4 Contact Lens Assistant Goal (LTG) Pt will be able to return to gardening for 20 minutes by . 01/13/21: Pt has been back to pulling weeds but cannot dig or shovel yet. LTG Duration 1 month 3 Penitentiary Goal (LTG) Pt will be able to perform spinning yarn and knitting without pain by 02/10/21. 01/13/21: Pt has been sewing. The tingling isn't getting better or worse LTG Duration 1 month 1 Penitentiary Goal (LTG) Pt will present with an improved QuickDASH score to reflect no more than 20% impairment to improve ADLs and IADLs by 02/10/21. 01/13/21: QuickDASH score reflects 29.54% impairment, which is an improvement 12/18/20: QuickDASH score reflects 36.36% impairment 11/13/20: QuickDASH score reflects 45.25% iimpairment LTG Duration 1 month Assessment Summary Assessment Pt has progressed towards all PT goals. She would like to con't with functional and body weight resisted exercises and will con't this in future treatments. Ongoing manual work as needed. Physical Therapy Plan Frequency and Duration Frequency of Treatment 1x/Week Duration of Treatment 1 month Plan of Care Start Date 01/13/21 Plan of Care End Date 02/10/21 Therapeutic Interventions Therapeutic Interventions Balance Training,Canalithic Repositioning,Gait Training, Home Exercise Program,Joint Mobilizations,Manual Therapy, Neuromuscular Re-education, Orthotic/Prosthetic Management ,Patient/Caregiver Education, Self-Care/Home Management,Soft Tissue Mobilization,Taping, Therapeutic Activities, Therapeutic Exercises Modalities Cold Pack/Ice Massage,Electric Stimulation,Hot Packs, Ultrasound Next Visit Focus/Plan Next Note Type Treatment Note Next Visit Plan Consider Counterstrain with particular scan for long bones of right distal UE, wall plank, progressive yoga exercises
--- NOTE | 2021-01-13 15:25 | PT.OPPOC ---
Physical, Occupational & Speech Therapy At [facility] Current Diagnoses Complete rotator cuff tear or rupture of right shoulder, not specified as traumatic (01/13/21) Visit Care Team Role Provider Type Referring Provider Specialty: Address: Phone: Fax: Email: Other Providers Specialty: Address: Phone: Fax: Email: Mer Crane PA-C Attending Provider Non-Staff Primary Care Provider Specialty: Medical Address: [facility] [address] [facility] [address], [place], [address] Email: Plan Of Care PT-OP-T Assessment and Plan Start: 09/11/20 14:43 Freq: Status: Active Protocol: Document 01/13/21 14:30 MB (Rec: 01/13/21 15:25 MB [id number]) Physical Therapy Assessment Goals 8 Fpc Goal (LTG) Pt will perform modified push- ups, pilates and yoga exercises with little to no right arm pain or paresthesia by 02/10/21. 01/13/21: Pt has started modified push-ups and they work and don't hurt. LTG Duration 1 month 6 Hog Ringer Goal (LTG) Pt will be able to lift a kettle full of water to allow return to clara by 02/10/21. 01/13/21: Pt is carefully holding kettle with arms bent at side, she is self-limiting LTG Duration 1 month 5 Hog Ringer Goal (LTG) Pt will perform progressive HEP with I including ROM, strengthening, postural, core and balance exercises to improve function by 02/10/21. 01/13/21: Pt is performing exercises over pool noodle including and posterior capsule stretch, band strengthening, pect stretch, standing rowing, Body Blade. She con't her own self-massage techniques. LTG Duration 1 month 4 Hog Ringer Goal (LTG) Pt will be able to return to gardening for 20 minutes by . 01/13/21: Pt has been back to pulling weeds but cannot dig or shovel yet. LTG Duration 1 month 3 Hog Ringer Goal (LTG) Pt will be able to perform spinning yarn and knitting without pain by 02/10/21. 01/13/21: Pt has been sewing. The tingling isn't getting better or worse LTG Duration 1 month 1 Fpc Goal (LTG) Pt will present with an improved QuickDASH score to reflect no more than 20% impairment to improve ADLs and IADLs by 02/10/21. 01/13/21: QuickDASH score reflects 29.54% impairment, which is an improvement 12/18/20: QuickDASH score reflects 36.36% impairment 11/13/20: QuickDASH score reflects 45.25% iimpairment LTG Duration 1 month Assessment Summary Assessment Pt has progressed towards all PT goals. She would like to con't with functional and body weight resisted exercises and will con't this in future treatments. Ongoing manual work as needed. Physical Therapy Plan Frequency and Duration Frequency of Treatment 1x/Week Duration of Treatment 1 month Plan of Care Start Date 01/13/21 Plan of Care End Date 02/10/21 Therapeutic Interventions Therapeutic Interventions Balance Training,Canalithic Repositioning,Gait Training, Home Exercise Program,Joint Mobilizations,Manual Therapy, Neuromuscular Re-education, Orthotic/Prosthetic Management ,Patient/Caregiver Education, Self-Care/Home Management,Soft Tissue Mobilization,Taping, Therapeutic Activities, Therapeutic Exercises Modalities Cold Pack/Ice Massage,Electric Stimulation,Hot Packs, Ultrasound Next Visit Focus/Plan Next Note Type Treatment Note Next Visit Plan Consider Counterstrain with particular scan for long bones of right distal UE, wall plank, progressive yoga exercises Plan of Care Dates Plan of Care Start Date 01/13/21 Plan of Care End Date 02/10/21 Electronically Signed by: Aminah Malik, PT 01/13/21 [id number] Please Sign and Return: I have reviewed this Plan of Care and certify that the skilled therapy services above are required to meet the patient?s needs. Physician Signature Date Printed Name and Credentials Clinical Instructor Signature Printed Name and Credentials
--- NOTE | 2021-01-21 13:04 | PT.OTN ---
Current Diagnoses Complete rotator cuff tear or rupture of right shoulder, not specified as traumatic (01/21/21) Physical Therapy Treatment Note PT-OP-A Visit Information Start: 09/11/20 14:43 Freq: Status: Active Protocol: Document 01/21/21 12:16 MB (Rec: 01/21/21 13:02 MB [id number]) Out-Patient Physical Therapy Visit Information Visit Information Visit Type Treatment Note Visit Start Time 12:16 Visit Stop Time 13:00 Total Visit Minutes 44 Visit Number 21 Evaluation Information Evaluation Date 09/18/20 Precautions Precautions Pt underwent arthroscopic surgery right shoulder with grafting on 08/07/20. Received provider note that states continue gentle strengthening with PT and HEP as directed. AM discussed including heavy lifting, weighted overhead activities and anything with susceptible abrupt stops/jolts . PT-OP-B Current Condition Start: 09/11/20 14:43 Freq: Status: Active Protocol: Document 09/18/20 12:59 MB (Rec: 09/18/20 13:15 MB [id number]) Current Condition History of Current Condition Onset Date 08/07/20 Current Complaints Inability to use right arm much post-op History of Current Condition Pt underwent right shoulder arthroscopic surgery on with op report stating right bicep and subscapularis repairs and extensive debridement with grafting technique. Pt's surgeon is in [place]. She just moved up to [place]. Pt is right handed. She has just gotten back in the bed and is trying to lie flatter with sleeping. Pt denies numbness and tingling and pain. PMH includes: left rotator cuff surgery 7 years ago and PT Prior Treatments and Tests Left shoulder surgery and PT, PT for left hamstrings and achilles problems Treatment Goals Patient/Caregiver Goals To learn how to use her arm safely PT-OP-C Subjective Start: 09/11/20 14:43 Freq: Status: Active Protocol: Document 01/21/21 12:16 MB (Rec: 01/21/21 13:02 MB [id number]) OP-PT Subjective Patient Comments Patient Comments Pt states that she did two days with one day in between rest of putting day lilies into ground. It was two hours of work each day and she did hand digging and some shovel digging. She was sore after the first day but had increased soreness right pect area and significant tingling in the right arm after the second day. PT-OP-J Posture/Palpation/Skin Start: 09/11/20 14:43 Freq: Status: Active Protocol: Document 09/18/20 12:59 MB (Rec: 09/18/20 15:52 MB [id number]) Posture Evaluation Comments Posture Comments Standing posture: pt does allow her right arm to dangle by her side: forward head, rounded shoulders, increased thoracic kyphosis, increased lumbar lordosis, right upper thoracic spine and scapula are tight with mildly protracted right scapula, mild upper thoracic convexity to the right. Skin Assessment Other Assessments Skin Assessment Comments Right shoulder arthroscopic scars healing well and no edema or ecchymosis, fascial tension over right posterior delt and triceps and pt states that graft had a pulling effect PT-OP-K Range of Motion Start: 09/11/20 14:43 Freq: Status: Active Protocol: Document 01/08/21 12:18 SP (Rec: 01/08/21 13:02 SP [id number]) Shoulder Goniometric Range of Motion Shoulder Right Shoulder ROM WFL No Testing Position Standing Flexion 145 Extension 62 Abduction 138 External Rotation at 0 degrees Abduction 64 Internal Rotation Behind Back (text) T6 Comments behind back 1st MTP PT-OP-M Strength Start: 09/11/20 14:43 Freq: Status: Active Protocol: Document 09/18/20 12:59 MB (Rec: 09/18/20 15:52 MB [id number]) Shoulder Strength Shoulder Manual Muscle Testing Left Flexion 5 Normal Abduction (C5) 5 Normal External Rotation 5 Normal Internal Rotation 5 Normal Right Comments MMT deferred post-op 6 weeks Elbow/Forearm Strength Elbow and Forearm Manual Muscle Testing Left Flexion (C6) 5 Normal Extension (C7) 5 Normal Pronation 5 Normal Supination 5 Normal Right Comments MMT deferred post-op Wrist Strength Wrist Manual Muscle Testing Left Flexion (C7) 5 Normal Extension (C6) 5 Normal Right Comments MMT deferred post-op d/t pt guarding PT-OP-Q Treatments Start: 09/11/20 14:43 Freq: Status: Active Protocol: Document 01/21/21 12:16 MB (Rec: 01/21/21 13:02 MB [id number]) Cardio Equipment Upper Body Ergometer (UBE) Duration (Minutes) 8 Other 1' forward and 1' backward and tingling got worse Therapeutic Exercises Other Exercises Open book with pect stretch Side bilateral Comments 2 reps slowly with nose and rib breathing Manual Therapy Treatment Other Other Manual Treatments Pt supine: STM right pect major and minor, mostly minor on the humeral attachment and MWM with pt and PT moving arm into ER and IR, also STM and MWM right coracobrachialis with shoulder flexion movement , STM and MWM right long head biceps, right 2nd and 3rd rib mobilization with coordinated breathing and pect minor STM on rib attachment PT-OP-R Modalities Start: 09/11/20 14:43 Freq: Status: Active Protocol: Document 10/13/20 13:47 SP (Rec: 10/13/20 14:31 SP [id number]) Hot Pack/Cold Pack Treatment cryocuf Location R shld Patient Position Sitting Treatment Duration (minutes) 10 Patient Tolerance Good PT-OP-T Assessment and Plan Start: 09/11/20 14:43 Freq: Status: Active Protocol: Document 01/21/21 12:16 MB (Rec: 01/21/21 13:02 MB [id number]) Physical Therapy Assessment Goals 8 Hot Strip Mill Inspector Goal (LTG) Pt will perform modified push- ups, pilates and yoga exercises with little to no right arm pain or paresthesia by 02/10/21. 01/13/21: Pt has started modified push-ups and they work and don't hurt. LTG Duration 1 month 6 Hot Strip Mill Inspector Goal (LTG) Pt will be able to lift a kettle full of water to allow return to clara by 02/10/21. 01/13/21: Pt is carefully holding kettle with arms bent at side, she is self-limiting LTG Duration 1 month 5 Hot Strip Mill Inspector Goal (LTG) Pt will perform progressive HEP with I including ROM, strengthening, postural, core and balance exercises to improve function by 02/10/21. 01/13/21: Pt is performing exercises over pool noodle including and posterior capsule stretch, band strengthening, pect stretch, standing rowing, Body Blade. She con't her own self-massage techniques. LTG Duration 1 month 4 Hot Strip Mill Inspector Goal (LTG) Pt will be able to return to gardening for 20 minutes by . 01/13/21: Pt has been back to pulling weeds but cannot dig or shovel yet. LTG Duration 1 month 3 Penitentiary Goal (LTG) Pt will be able to perform spinning yarn and knitting without pain by 02/10/21. 01/13/21: Pt has been sewing. The tingling isn't getting better or worse LTG Duration 1 month 1 Penitentiary Goal (LTG) Pt will present with an improved QuickDASH score to reflect no more than 20% impairment to improve ADLs and IADLs by 02/10/21. 01/13/21: QuickDASH score reflects 29.54% impairment, which is an improvement 12/18/20: QuickDASH score reflects 36.36% impairment 11/13/20: QuickDASH score reflects 45.25% iimpairment LTG Duration 1 month Assessment Summary Assessment Pt reports increased tingling in right arm and hand after gardening over a couple of days. The symptoms increased with the UBE and so stopped. More work on the right pect and shoulder today. Will monitor response. Physical Therapy Plan Frequency and Duration Frequency of Treatment 1x/Week Duration of Treatment 1 month Plan of Care Start Date 01/13/21 Plan of Care End Date 02/10/21 Therapeutic Interventions Therapeutic Interventions Balance Training,Canalithic Repositioning,Gait Training, Home Exercise Program,Joint Mobilizations,Manual Therapy, Neuromuscular Re-education, Orthotic/Prosthetic Management ,Patient/Caregiver Education, Self-Care/Home Management,Soft Tissue Mobilization,Taping, Therapeutic Activities, Therapeutic Exercises Modalities Cold Pack/Ice Massage,Electric Stimulation,Hot Packs, Ultrasound Next Visit Focus/Plan Next Note Type Treatment Note Next Visit Plan Manual work, wall plank, progressive yoga exercises
--- NOTE | 2021-01-28 12:59 | PT.OTN ---
Current Diagnoses Complete rotator cuff tear or rupture of right shoulder, not specified as traumatic (01/28/21) Physical Therapy Treatment Note PT-OP-A Visit Information Start: 09/11/20 14:43 Freq: Status: Active Protocol: Document 01/28/21 12:15 MB (Rec: 01/28/21 12:58 MB [id number]) Out-Patient Physical Therapy Visit Information Visit Information Visit Type Treatment Note Visit Start Time 12:15 Visit Stop Time 12:55 Total Visit Minutes 40 Visit Number 22 Evaluation Information Evaluation Date 09/18/20 Precautions Precautions Pt underwent arthroscopic surgery right shoulder with grafting on 08/07/20. Received provider note that states continue gentle strengthening with PT and HEP as directed. AM discussed including heavy lifting, weighted overhead activities and anything with susceptible abrupt stops/jolts . PT-OP-B Current Condition Start: 09/11/20 14:43 Freq: Status: Active Protocol: Document 09/18/20 12:59 MB (Rec: 09/18/20 13:15 MB [id number]) Current Condition History of Current Condition Onset Date 08/07/20 Current Complaints Inability to use right arm much post-op History of Current Condition Pt underwent right shoulder arthroscopic surgery on with op report stating right bicep and subscapularis repairs and extensive debridement with grafting technique. Pt's surgeon is in [place]. She just moved up to [place]. Pt is right handed. She has just gotten back in the bed and is trying to lie flatter with sleeping. Pt denies numbness and tingling and pain. 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 She is sore afterwards. She pushes on her right pect/rib area if gets parethesias and that is helpful. PT-OP-J Posture/Palpation/Skin Start: 09/11/20 14:43 Freq: Status: Active Protocol: Document 09/18/20 12:59 MB (Rec: 09/18/20 15:52 MB [id number]) Posture Evaluation Comments Posture Comments Standing posture: pt does allow her right arm to dangle by her side: forward head, rounded shoulders, increased thoracic kyphosis, increased lumbar lordosis, right upper thoracic spine and scapula are tight with mildly protracted right scapula, mild upper thoracic convexity to the right. Skin Assessment Other Assessments Skin Assessment Comments Right shoulder arthroscopic scars healing well and no edema or ecchymosis, fascial tension over right posterior delt and triceps and pt states that graft had a pulling effect PT-OP-K Range of Motion Start: 09/11/20 14:43 Freq: Status: Active Protocol: Document 01/08/21 12:18 SP (Rec: 01/08/21 13:02 SP [id number]) Shoulder Goniometric Range of Motion Shoulder Right Shoulder ROM WFL No Testing Position Standing Flexion 145 Extension 62 Abduction 138 External Rotation at 0 degrees Abduction 64 Internal Rotation Behind Back (text) T6 Comments behind back 1st MTP PT-OP-M Strength Start: 09/11/20 14:43 Freq: Status: Active Protocol: Document 09/18/20 12:59 MB (Rec: 09/18/20 15:52 MB [id number]) Shoulder Strength Shoulder Manual Muscle Testing Left Flexion 5 Normal Abduction (C5) 5 Normal External Rotation 5 Normal Internal Rotation 5 Normal Right Comments MMT deferred post-op 6 weeks Elbow/Forearm Strength Elbow and Forearm Manual Muscle Testing Left Flexion (C6) 5 Normal Extension (C7) 5 Normal Pronation 5 Normal Supination 5 Normal Right Comments MMT deferred post-op Wrist Strength Wrist Manual Muscle Testing Left Flexion (C7) 5 Normal Extension (C6) 5 Normal Right Comments MMT deferred post-op d/t pt guarding PT-OP-Q Treatments Start: 09/11/20 14:43 Freq: Status: Active Protocol: Document 01/28/21 12:15 MB (Rec: 01/28/21 12:58 MB [id number]) Cardio Equipment Upper Body Ergometer (UBE) Duration (Minutes) 10 Other 1' forward and 1' backward Manual Therapy Treatment Other Other Manual Treatments Pt supine: MWM right pect major and minor with AAROM right shoulder ER and IR with TrP pressure. STM distal right biceps with right elbow flexion and extension AAROM, worked up the biceps belly with similar TrP pressure and elbow movement, gentle right rib recoil over pect minor and cues for pt to perform with hand pressure and breathing and coughing at home. Anterior border right lats, serratus anterior and shoulder ERs and right shoulder ER and abduction with TrP pressure and arm responds well. PT-OP-R Modalities Start: 09/11/20 14:43 Freq: Status: Active Protocol: Document 10/13/20 13:47 SP (Rec: 10/13/20 14:31 SP [id number]) Hot Pack/Cold Pack Treatment cryocuf Location R shld Patient Position Sitting Treatment Duration (minutes) 10 Patient Tolerance Good PT-OP-T Assessment and Plan Start: 09/11/20 14:43 Freq: Status: Active Protocol: Document 01/28/21 12:15 MB (Rec: 01/28/21 12:58 MB [id number]) Physical Therapy Assessment Goals 8 Power Manager Goal (LTG) Pt will perform modified push- ups, pilates and yoga exercises with little to no right arm pain or paresthesia by 02/10/21. 01/13/21: Pt has started modified push-ups and they work and don't hurt. LTG Duration 1 month 6 Long-Term Goal (LTG) Pt will be able to lift a kettle full of water to allow return to clara by 02/10/21. 01/13/21: Pt is carefully holding kettle with arms bent at side, she is self-limiting LTG Duration 1 month 5 Power Manager Goal (LTG) Pt will perform progressive HEP with I including ROM, strengthening, postural, core and balance exercises to improve function by 02/10/21. 01/13/21: Pt is performing exercises over pool noodle including and posterior capsule stretch, band strengthening, pect stretch, standing rowing, Body Blade. She con't her own self-massage techniques. LTG Duration 1 month 4 Power Manager Goal (LTG) Pt will be able to return to gardening for 20 minutes by . 01/13/21: Pt has been back to pulling weeds but cannot dig or shovel yet. LTG Duration 1 month 3 Power Manager Goal (LTG) Pt will be able to perform spinning yarn and knitting without pain by 02/10/21. 01/13/21: Pt has been sewing. The tingling isn't getting better or worse LTG Duration 1 month 1 Long-Term Goal (LTG) Pt will present with an improved QuickDASH score to reflect no more than 20% impairment to improve ADLs and IADLs by 02/10/21. 01/13/21: QuickDASH score reflects 29.54% impairment, which is an improvement 12/18/20: QuickDASH score reflects 36.36% impairment 11/13/20: QuickDASH score reflects 45.25% iimpairment LTG Duration 1 month Assessment Summary Assessment Pt reports increased tingling in right arm with using UBE today. Ed pt in gentle progression of yoga at home ( plank on side of table first for more less WB) and she verbalizes understanding. Anticipate d/c next treatment date. Physical Therapy Plan Frequency and Duration Frequency of Treatment 1x/Week Duration of Treatment 1 month Plan of Care Start Date 01/13/21 Plan of Care End Date 02/10/21 Therapeutic Interventions Therapeutic Interventions Balance Training,Canalithic Repositioning,Gait Training, Home Exercise Program,Joint Mobilizations,Manual Therapy, Neuromuscular Re-education, Orthotic/Prosthetic Management ,Patient/Caregiver Education, Self-Care/Home Management,Soft Tissue Mobilization,Taping, Therapeutic Activities, Therapeutic Exercises Modalities Cold Pack/Ice Massage,Electric Stimulation,Hot Packs, Ultrasound Next Visit Focus/Plan Next Note Type Discharge Summary
--- NOTE | 2021-02-04 15:23 | PT.OTN ---
Current Diagnoses Complete rotator cuff tear or rupture of right shoulder, not specified as traumatic (02/04/21) Physical Therapy Treatment Note PT-OP-A Visit Information Start: 09/11/20 14:43 Freq: Status: Active Protocol: Document 02/04/21 13:01 MB (Rec: 02/04/21 13:22 MB [id number]) Out-Patient Physical Therapy Visit Information Visit Information Visit Type Treatment Note Visit Start Time 13:01 Visit Stop Time 13:45 Total Visit Minutes 44 Visit Number 23 Evaluation Information Evaluation Date 09/18/20 Precautions Precautions Pt underwent arthroscopic surgery right shoulder with grafting on 08/07/20. Received provider note that states continue gentle strengthening with PT and HEP as directed. AM discussed including heavy lifting, weighted overhead activities and anything with susceptible abrupt stops/jolts . PT-OP-B Current Condition Start: 09/11/20 14:43 Freq: Status: Active Protocol: Document 09/18/20 12:59 MB (Rec: 09/18/20 13:15 MB [id number]) Current Condition History of Current Condition Onset Date 08/07/20 Current Complaints Inability to use right arm much post-op History of Current Condition Pt underwent right shoulder arthroscopic surgery on with op report stating right bicep and subscapularis repairs and extensive debridement with grafting technique. Pt's surgeon is in [place]. She just moved up to [place]. Pt is right handed. She has just gotten back in the bed and is trying to lie flatter with sleeping. Pt denies numbness and tingling and pain. PMH includes: left rotator cuff surgery 7 years ago and PT Prior Treatments and Tests Left shoulder surgery and PT, PT for left hamstrings and achilles problems Treatment Goals Patient/Caregiver Goals To learn how to use her arm safely PT-OP-C Subjective Start: 09/11/20 14:43 Freq: Status: Active Protocol: Document 02/04/21 13:01 MB (Rec: 02/04/21 13:22 MB [id number]) OP-PT Subjective Patient Comments Patient Comments Pt reports that the numbness comes and goes in the right hand. Occ she has it when sleeping. She cannot name a true provocation. Sometimes cutting with the knife brings it on. It seems to be related to the right shoulder and pect . She leaves for [place] this weekend for the holiday season and is ready to d/c. PT-OP-J Posture/Palpation/Skin Start: 09/11/20 14:43 Freq: Status: Active Protocol: Document 09/18/20 12:59 MB (Rec: 09/18/20 15:52 MB [id number]) Posture Evaluation Comments Posture Comments Standing posture: pt does allow her right arm to dangle by her side: forward head, rounded shoulders, increased thoracic kyphosis, increased lumbar lordosis, right upper thoracic spine and scapula are tight with mildly protracted right scapula, mild upper thoracic convexity to the right. Skin Assessment Other Assessments Skin Assessment Comments Right shoulder arthroscopic scars healing well and no edema or ecchymosis, fascial tension over right posterior delt and triceps and pt states that graft had a pulling effect PT-OP-K Range of Motion Start: 09/11/20 14:43 Freq: Status: Active Protocol: Document 01/08/21 12:18 SP (Rec: 01/08/21 13:02 SP [id number]) Shoulder Goniometric Range of Motion Shoulder Right Shoulder ROM WFL No Testing Position Standing Flexion 145 Extension 62 Abduction 138 External Rotation at 0 degrees Abduction 64 Internal Rotation Behind Back (text) T6 Comments behind back 1st MTP PT-OP-M Strength Start: 09/11/20 14:43 Freq: Status: Active Protocol: Document 09/18/20 12:59 MB (Rec: 09/18/20 15:52 MB [id number]) Shoulder Strength Shoulder Manual Muscle Testing Left Flexion 5 Normal Abduction (C5) 5 Normal External Rotation 5 Normal Internal Rotation 5 Normal Right Comments MMT deferred post-op 6 weeks Elbow/Forearm Strength Elbow and Forearm Manual Muscle Testing Left Flexion (C6) 5 Normal Extension (C7) 5 Normal Pronation 5 Normal Supination 5 Normal Right Comments MMT deferred post-op Wrist Strength Wrist Manual Muscle Testing Left Flexion (C7) 5 Normal Extension (C6) 5 Normal Right Comments MMT deferred post-op d/t pt guarding PT-OP-Q Treatments Start: 09/11/20 14:43 Freq: Status: Active Protocol: Document 02/04/21 13:01 MB (Rec: 02/04/21 13:22 MB [id number]) Cardio Equipment Upper Body Ergometer (UBE) Duration (Minutes) 10 Other 1' forward and 1' backward Manual Therapy Treatment Other Other Manual Treatments Pt supine: MWM, positional release and STM right pect major and minor, biceps tendon and infraspinatus PT-OP-R Modalities Start: 09/11/20 14:43 Freq: Status: Active Protocol: Document 10/13/20 13:47 SP (Rec: 10/13/20 14:31 SP [id number]) Hot Pack/Cold Pack Treatment cryocuf Location R shld Patient Position Sitting Treatment Duration (minutes) 10 Patient Tolerance Good PT-OP-T Assessment and Plan Start: 09/11/20 14:43 Freq: Status: Active Protocol: Document 02/04/21 13:01 MB (Rec: 02/04/21 13:22 MB [id number]) Physical Therapy Assessment Goals 8 Electric Gas Appliances Demonstrator Goal (LTG) Pt will perform modified push- ups, pilates and yoga exercises with little to no right arm pain or paresthesia by 02/10/21. 02/04/21: Pt can do fine as far as pain and the tingling is hit or miss LTG Duration Partially met 6 [facility] Goal (LTG) Pt will be able to lift a kettle full of water to allow return to clara by 02/10/21. 02/04/21: Same: Pt is carefully holding kettle with arms bent at side, she is self -limiting LTG Duration Partially met 5 [facility] Goal (LTG) Pt will perform progressive HEP with I including ROM, strengthening, postural, core and balance exercises to improve function by 02/10/21. 02/04/21: Pt is performing exercises over pool noodle including and posterior capsule stretch, band strengthening, pect stretch, standing rowing, Body Blade. She con't her own self-massage techniques. LTG Duration Met 4 [facility] Goal (LTG) Pt will be able to return to gardening for 20 minutes by . 02/04/21: Pt can garden for 20 minutes without pain but she does have the tingling. LTG Duration Met 3 [facility] Goal (LTG) Pt will be able to perform spinning yarn and knitting without pain by 02/10/21. 02/04/21: Pt can perform spinning yarn and knitting without pain and she does have tingling. LTG Duration Met 1 Electric [employer] Appliances Demonstrator Goal (LTG) Pt will present with an improved QuickDASH score to reflect no more than 20% impairment to improve ADLs and IADLs by 02/10/21. 02/04/21: QuickDASH score reflects 22.72% impairment LTG Duration Progressed towards goal Assessment Summary Assessment Pt con't to report occ right hand tingling and numbness. This is her biggest lingering complaint. She has progressed towards all PT goals. She is leaving for [place] for the holidays and is ready to d/c PT. Will d/c PT.
== END 2021-04-20 09:43 ==
LOC: PHYS 13:00
PROVIDERS: PCP Physician Assistant; Visit Provider Physician Assistant
DX: M75.121 Complete rotator cuff tear or rupture of right shoulder, not specified as traumatic (principal)
CPT/HCPCS: 97110; 97140; 97161

== ENCOUNTER → 2021-07-14 09:09 | Outpatient (CLI) | payer BC, SELFPAY ==
[2021-07-14 09:26] LABS: Add Manual Diff / Slide Review NO; Basophils Absolute Auto 0 /uL (0-100); Basophils Percent Auto 0.8 % (0-2); Eosinophils Absolute Auto 200 /uL (0-450); Eosinophils Percent Auto 4.9 % (2-4); Hematocrit 40.3 % (36-46); Hemoglobin 13.6 g/dL (12.0-16.0); Lymphocytes Absolute Auto 1800 /uL (1100-4500); Lymphocytes Percent Auto 38.6 % (25-40); Mean Corpuscular HGB Conc 33.8 % (30-36); Mean Corpuscular Hemoglobin 32.2 PG (26-34); Mean Corpuscular Volume 95.1 fL (80-100); Monocytes Absolute Auto 500 /uL (0-900); Monocytes Percent Auto 10.3 % (3-14); Neutrophils Absolute Auto 2100 /uL (1500-7000); Neutrophils Percent Auto 45.4 % (50-75); Platelet Count 191 X10^3/uL (150-400); Red Blood Cell Count 4.24 X10^6/uL (4.0-5.2); Red Cell Distribution Width 12.7 % (11.6-14.8); White Blood Cell Count 4.6 X10^3/uL (4.5-11.0)
[2021-07-14 10:45] LABS: Alanine Aminotransferase 27 IU/L (<35); Albumin 4.4 g/dL (3.5-5.0); Albumin Globulin Ratio 1.8 (1.0-2.8); Alkaline Phosphatase 54 U/L (38-126); Aspartate Aminotransferase 26 IU/L (14-36); BUN Creatinine Ratio 23.1 (6-22); Blood Urea Nitrogen 21 mg/dL (7-17); Calcium 9.4 mg/dL (8.4-10.2); Carbon Dioxide 28 mmol/L (22-32); Chloride 106 mmol/L (98-107); Cholesterol 164 mg/dL (140-199); Estimated Glomerular Filt Rate > 60 mL/min (>60); Globulin 2.5 g/dL (1.7-4.1); Glucose 98 mg/dL (80-110); HDL Cholesterol 71 mg/dL (40-60); HEMOLYSIS < 15 (0-50); LDL Cholesterol Calculated 77 mg/dL (<100); Potassium 4.6 mmol/L (3.4-5.1); Sodium 140 mmol/L (137-145); Total Protein 6.9 g/dL (6.3-8.2); Triglycerides 82 mg/dL (35-150)
[2021-07-14 10:48] LABS: Creatinine Urine Random 152.1 mg/dL
[2021-07-14 10:52] LABS: Microalbumi Creatinin Ratio Ur 5.2 ug/mg CR (<30); Microalbumin Urine Random 0.8 mg/dL (0-1.6)
[2021-07-14 11:16] LABS: TSH w/ Reflex to FT4 0.18 uIU/mL (0.47-4.68)
[2021-07-14 11:47] LABS: Free T4, Direct Thyroxine 1.86 ng/dL (0.78-2.19)
[2021-07-14 20:57] LABS: Hep C Virus Ab w/Reflex Quant NEGATIVE s/c (NEGATIVE)
== END ==
PROVIDERS: PCP Family Medicine; Referring Provider Family Medicine; Visit Provider Family Medicine
DX: E03.9 Hypothyroidism, unspecified (principal); I10 Essential (primary) hypertension; N95.1 Menopausal and female climacteric states; J30.2 Other seasonal allergic rhinitis
CPT/HCPCS: 36415; 80053; 80061; 82043; 82570; 84439; 84443; 85025; 86803

== ENCOUNTER → 2022-06-08 15:00 | Outpatient (CLI) | payer BC, SELFPAY ==
--- NOTE | 2022-06-08 15:01 | DI.MG.S_ITS ---
BILATERAL DIGITAL SCREENING MAMMOGRAM 3D/2D WITH CAD: 06/08/2022 CLINICAL: Routine screening. Comparison is made to exams dated: 06/18/2020 mammogram, 05/09/2019 mammogram, and 03/02/2017 mammogram - out side. Both breasts are heterogeneously dense, which may obscure small masses (category c / 51-75% glandular tissue). Current study was also evaluated with a Computer Aided Detection (CAD) system. There are benign calcifications in both breasts. No significant masses, calcifications, or other findings are seen in either breast. There has been no significant interval change. IMPRESSION: BENIGN There is no mammographic evidence of malignancy. A 1 year screening mammogram is recommended. Based on the Tyrer Cuzick model (a risk assessment model) the patient's lifetime risk is 11.8% and her 10 year risk is 6.3%. According to the ACR, ACS, and NCCN guidelines, an annual breast MRI exam along with mammogram is recommended if the patient's lifetime risk is 20% or greater. This exam was interpreted at Station ID: [id number]. NOTE: For mammograms, a report in lay terms will be sent to the patient. Approximately 15% of breast malignancies will not be visualized mammographically. In the management of a palpable breast mass, a negative mammogram must not discourage biopsy of a clinically suspicious lesion. Electronically Signed By: Coretta downs/eric:06/08/2022 16:41:20 letter sent: Normal Exam ACR BI-RADS Category 2: Benign Finding(s) [id number]
== END ==
PROVIDERS: PCP Family Medicine; Referring Provider Family Medicine; Visit Provider Family Medicine
DX: Z12.31 Encounter for screening mammogram for malignant neoplasm of breast (principal)
CPT/HCPCS: 77063; 77067

== ENCOUNTER → 2022-08-17 08:53 | Outpatient (CLI) | payer BC, SELFPAY | PROVIDERS: PCP Family Medicine; Referring Provider Family Medicine; Visit Provider Family Medicine | DX: E03.9 Hypothyroidism, unspecified (principal) | CPT/HCPCS: 36415; 84443 ==

== ENCOUNTER → 2022-10-10 08:30 | Outpatient (CLI) | payer BC, SELFPAY ==
[2022-10-10 10:49] LABS: Alanine Aminotransferase 27 IU/L (<35); Albumin 4.2 g/dL (3.5-5.0); Albumin Globulin Ratio 1.5 (1.0-2.8); Alkaline Phosphatase 53 U/L (38-126); Aspartate Aminotransferase 28 IU/L (14-36); BUN Creatinine Ratio 14.1 (6-22); Bilirubin Total 1.3 mg/dL (0.2-1.3); Blood Urea Nitrogen 12 mg/dL (7-17); Calcium 8.9 mg/dL (8.4-10.2); Carbon Dioxide 28 mmol/L (22-32); Chloride 105 mmol/L (98-107); Cholesterol 167 mg/dL (140-199); Estimated Glomerular Filt Rate > 60 mL/min (>60); Globulin 2.8 g/dL (1.7-4.1); Glucose 87 mg/dL (80-110); HDL Cholesterol 54 mg/dL (40-60); HEMOLYSIS < 15 (0-50); LDL Cholesterol Calculated 89 mg/dL (<100); Potassium 3.9 mmol/L (3.4-5.1); Sodium 139 mmol/L (137-145); Triglycerides 122 mg/dL (35-150)
[2022-10-10 10:51] LABS: Add Manual Diff / Slide Review NO; Basophils Absolute Auto 0 /uL (0-100); Basophils Percent Auto 0.9 % (0-2); Eosinophils Absolute Auto 200 /uL (0-450); Eosinophils Percent Auto 4.6 % (2-4); Hematocrit 38.9 % (36-46); Hemoglobin 12.9 g/dL (12.0-16.0); Lymphocytes Absolute Auto 1900 /uL (1100-4500); Lymphocytes Percent Auto 35.7 % (25-40); Mean Corpuscular HGB Conc 33.1 % (30-36); Mean Corpuscular Hemoglobin 31.6 PG (26-34); Mean Corpuscular Volume 95.6 fL (80-100); Monocytes Absolute Auto 500 /uL (0-900); Monocytes Percent Auto 8.7 % (3-14); Neutrophils Absolute Auto 2700 /uL (1500-7000); Neutrophils Percent Auto 50.1 % (50-75); Platelet Count 180 X10^3/uL (150-400); Red Blood Cell Count 4.07 X10^6/uL (4.0-5.2); Red Cell Distribution Width 12.7 % (11.6-14.8); White Blood Cell Count 5.3 X10^3/uL (4.5-11.0)
[2022-10-10 10:56] LABS: Vitamin D 25 Hydroxy (D3) 75.2 ng/mL (30.0-100.0)
[2022-10-10 11:13] LABS: TSH w/ Reflex to FT4 3.37 uIU/mL (0.47-4.68)
[2022-10-10 11:31] LABS: Vitamin B12 916 pg/mL (239-931)
[2022-10-10 12:46] LABS: Creatinine Urine Random 160.7 mg/dL
[2022-10-10 12:53] LABS: Microalbumi Creatinin Ratio Ur 21.1 ug/mg CR (<30); Microalbumin Urine Random 3.4 mg/dL (0-1.6)
== END ==
PROVIDERS: PCP Family Medicine; Referring Provider Family Medicine; Visit Provider Family Medicine
DX: E03.9 Hypothyroidism, unspecified (principal); I10 Essential (primary) hypertension; N95.1 Menopausal and female climacteric states
CPT/HCPCS: 36415; 80053; 80061; 82043; 82306; 82570; 82607; 84443; 85025

== ENCOUNTER → 2022-11-15 11:49 | Outpatient (CLI) | payer MEDICARE, OTHER, SELFPAY ==
--- NOTE | 2022-11-15 11:53 | DI.RAD.S_ITS ---
PROCEDURE: XR HIP W PEL IF DONE RT 2V INDICATIONS: right hip pain TECHNIQUE: AP pelvis with lateral view(s) of the right hip(s). COMPARISON: None. FINDINGS: Bones: No fractures or dislocations. Pelvic ring appears intact. No suspicious bony lesions. Mild to moderate right hip degenerative change. Soft tissues: The visualized bowel gas pattern is normal. No suspicious soft tissue calcifications. IMPRESSION: Kanr-cr-[id number] right hip degenerative change. No evidence acute bony abnormality. If clinical suspicion and/or symptoms persist, further assessment with repeat plain films, or advanced imaging (e.g., CT, MRI, or bone scan) may be helpful for further assessment. Dictated by: Nixon Mayer M.D. on 11/15/2022 at 15:20 Approved by: Nixon Mayer M.D. on 11/15/2022 at 15:21
== END ==
PROVIDERS: PCP Family Medicine; Referring Provider Family Medicine; Visit Provider Family Medicine
DX: M25.551 Pain in right hip (principal)
CPT/HCPCS: 73502

== ENCOUNTER 2023-02-02 09:45 | Outpatient (RCR) | payer MEDICARE, OTHER, SELFPAY ==
--- NOTE | 2023-01-11 13:20 | PT.OIE ---
Current Diagnoses Pain in right hip (01/11/23) Stiffness of right hip, not elsewhere classified (01/11/23) Past Medical History (Last Updated 07/08/21 @ 13:41 by Christoph Zuniga MD) Excessive daytime sleepiness Hordeolum internum right upper eyelid Hypertension Hypothyroidism Post menopausal syndrome Seasonal allergies Visit Care Team Role Provider Type Christoph Zuniga MD Attending Provider Physician Family Provider Primary Care Provider Referring Provider Specialty: Family Practice Address: [address] [place] [address], [facility] Email: [email or web address] Physical Therapy Initial Evaluation PT-OP-A Visit Information Start: 01/11/23 12:53 Freq: Status: Active Protocol: Document 01/11/23 12:00 DCW (Rec: 01/11/23 13:20 DCW [id number]) Out-Patient Physical Therapy Visit Information Visit Information Visit Type Initial Evaluation Visit Start Time 12:00 Visit Stop Time 12:40 Total Visit Minutes 40 Visit Number 1 Number of X RAY TECHNICIAN Visits 0 Evaluation Information Evaluation Date 01/11/23 PT-OP-B Current Condition Start: 01/11/23 12:53 Freq: Status: Active Protocol: Document 01/11/23 12:00 DCW (Rec: 01/11/23 13:20 DCW [id number]) Current Condition History of Current Condition Onset Date ~3 month history Current Complaints Right hip pain/stiffness History of Current Condition Pt is a 67 year old female presenting with a three month history of right hip pain. Had an x-ray and was found to have mild-moderate OA. Two months ago when she went to see her PCP, he was experiencing nightly pain, which was disturbing her sleep . Admits that between then and now, she noticed quite a bit of improvement, although while not flared-up anymore, she still has some vague, base- line soreness fairly regularly . Does note that five years ago, she was in PT for similar pain, and has restarted some of her prior HEP, which has been helping some, but she doesn't quite remember everything. Prior Treatments and Tests Right hip x-ray: IMPRESSION: [id number] right hip degenerative change. No evidence acute bony abnormality. per Nixon Mayer M.D. on 11/15/2022 PT-OP-C Subjective Start: 01/11/23 12:53 Freq: Status: Active Protocol: Document 01/11/23 12:00 DCW (Rec: 01/11/23 13:20 DCW [id number]) OP-PT Subjective Patient Comments Patient Comments I've been using a ball to help release the hip flexors and back in the hamstring, it' s helped in the past, and it has been helping some now. OP-PT Pain Assessment Location Right Posterior Lateral Hip Intensity 2 Scale Used Numeric (0 - 10) Description Aching Frequency Intermittent PT-OP-F Manual Assessment Start: 01/11/23 12:53 Freq: Status: Active Protocol: Document 01/11/23 12:00 DCW (Rec: 01/11/23 13:20 DCW [id number]) Manual Assessments Joint Mobility Assessment Joint Mobility Assessment Good right hip joint mobility, no limitations. Appears to have mild right hip ASIS elevation/torsion PT-OP-K Range of Motion Start: 01/11/23 12:53 Freq: Status: Active Protocol: Document 01/11/23 12:00 DCW (Rec: 01/11/23 13:20 DCW [id number]) Hip Goniometric Range of Motion Hip Right Active Hip ROM WFL Yes Testing Position Sitting PT-OP-M Strength Start: 01/11/23 12:53 Freq: Status: Active Protocol: Document 01/11/23 12:00 DCW (Rec: 01/11/23 13:20 DCW [id number]) Hip Strength Hip Manual Muscle Testing Right Flexion (L2) 5 Normal Abduction 5 Normal Adduction 5 Normal External Rotation 5 Normal Internal Rotation 5 Normal Knee Strength Knee Manual Muscle Testing Right Flexion (S2) 5 Normal Extension (L3) 5 Normal PT-OP-Q Treatments Start: 01/11/23 12:53 Freq: Status: Active Protocol: Document 01/11/23 12:00 DCW (Rec: 01/11/23 13:20 DCW [id number]) Therapeutic Exercises Supine Exercises Isometric pelvis stabilization Supine Exercise Name Resisted right hip flexion, left hip extension Hip Flexors Supine Exercise Name Hip flexor stretch - leg off table Side right Sitting Exercises Piriformis stretch Sitting Exercise Name Seated figure-4 Side right Standing Exercises ITB stretch Standing Exercise Name ITB stretch lateral wall lean Side right Hip flexors Standing Exercise Name Half-kneeling hip flexor stretch Side right PT-OP-T Assessment and Plan Start: 01/11/23 12:53 Freq: Status: Active Protocol: Document 01/11/23 12:00 DCW (Rec: 01/11/23 13:20 DCW [id number]) Physical Therapy Assessment Rehab Potential Rehabilitation Potential Excellent Evaluation Complexity Number of Personal Factors/Comorbidities 0 Number of Body Systems Impaired 1-2 Clinical Presentation at Evaluation Stable Impairments Impairments Pain,ROM,Soft Tissue Mobility, Tone Goals Two Impairment Pt wakes up with hip pain on 30% of nights Farm Equipment Mechanic Apprentice Goal (LTG) Pt to sleep through the night with no disturbances caused by hip pain for two full weeks. LTG Duration 02/08/23 One Impairment Pt does not have an appropriate home exercise program Short Term Goal (STG) Pt to be independent and compliant with an appropriate home exercise program STG Duration 01/25/23 Assessment Summary Assessment Pt presents with signs and symptoms consistent with mild hip dysfunction caused by general muscular tightness. Pt has already made very good progress since initial referral working on self- stretching and STM using a ball. Right hip flexors, ITB, and piriformis appear to be her tightest areas. Focused some today on expanding HEP to increase flexibility and mobility of hip tightness, pt already exhibiting good response to stretch and great motivation to increase frequency of new HEP. Overall, pt fairly mildly symptomatic at the moment, and will likely be appropriate for fairly quick transition to independent HEP if she progresses as expected. Physical Therapy Plan Frequency and Duration Frequency of Treatment 1-2x/week Plan of Care Start Date 01/11/23 Plan of Care End Date 02/08/23 Therapeutic Interventions Therapeutic Interventions Home Exercise Program,Joint Mobilizations,Manual Therapy, Patient/Caregiver Education, Self-Care/Home Management,Soft Tissue Mobilization, Therapeutic Activities, Therapeutic Exercises Next Visit Focus/Plan Next Note Type Treatment Note Next Visit Plan HEP review, pt education, flexibility/stretching
--- NOTE | 2023-01-11 13:21 | PT.OPPOC ---
Physical, Occupational & Speech Therapy At [facility] Current Diagnoses Pain in right hip (01/11/23) Stiffness of right hip, not elsewhere classified (01/11/23) Visit Care Team Role Provider Type Christoph Zuniga MD Attending Provider Physician Family Provider Primary Care Provider Referring Provider Specialty: Family Practice Address: [address] [place] [address], [facility] Email: [email or web address] Plan Of Care PT-OP-T Assessment and Plan Start: 01/11/23 12:53 Freq: Status: Active Protocol: Document 01/11/23 12:00 DCW (Rec: 01/11/23 13:20 DCW [id number]) Physical Therapy Assessment Rehab Potential Rehabilitation Potential Excellent Evaluation Complexity Number of Personal Factors/Comorbidities 0 Number of Body Systems Impaired 1-2 Clinical Presentation at Evaluation Stable Impairments Impairments Pain,ROM,Soft Tissue Mobility, Tone Goals Two Impairment Pt wakes up with hip pain on 30% of nights Prison Goal (LTG) Pt to sleep through the night with no disturbances caused by hip pain for two full weeks. LTG Duration 02/08/23 One Impairment Pt does not have an appropriate home exercise program Short Term Goal (STG) Pt to be independent and compliant with an appropriate home exercise program STG Duration 01/25/23 Assessment Summary Assessment Pt presents with signs and symptoms consistent with mild hip dysfunction caused by general muscular tightness. Pt has already made very good progress since initial referral working on self- stretching and STM using a ball. Right hip flexors, ITB, and piriformis appear to be her tightest areas. Focused some today on expanding HEP to increase flexibility and mobility of hip tightness, pt already exhibiting good response to stretch and great motivation to increase frequency of new HEP. Overall, pt fairly mildly symptomatic at the moment, and will likely be appropriate for fairly quick transition to independent HEP if she progresses as expected. Physical Therapy Plan Frequency and Duration Frequency of Treatment 1-2x/week Plan of Care Start Date 01/11/23 Plan of Care End Date 02/08/23 Therapeutic Interventions Therapeutic Interventions Home Exercise Program,Joint Mobilizations,Manual Therapy, Patient/Caregiver Education, Self-Care/Home Management,Soft Tissue Mobilization, Therapeutic Activities, Therapeutic Exercises Next Visit Focus/Plan Next Note Type Treatment Note Next Visit Plan HEP review, pt education, flexibility/stretching Plan of Care Dates Plan of Care Start Date 01/11/23 Plan of Care End Date 02/08/23 Electronically Signed by: Thanh Contreras, PT 01/11/23 4073 If you are in agreement with this Plan of Care, please return a signed and dated copy. I have reviewed this Plan of Care and certify that the skilled therapy services above are required to meet the patient?s needs. Physician Signature Date Printed Name and Credentials Clinical Instructor Signature Printed Name and Credentials
--- NOTE | 2023-02-02 10:32 | PT.OTN ---
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 Had an x-ray and was found to have mild-moderate OA. Two months ago when she went to see her PCP, he was experiencing nightly pain, which was disturbing her sleep . Admits that between then and now, she noticed quite a bit of improvement, although while not flared-up anymore, she still has some vague, base- line soreness fairly regularly . Does note that five years ago, she was in PT for similar pain, and has restarted some of her prior HEP, which has been helping some, but she doesn't quite remember everything. Prior Treatments and Tests Right hip x-ray: IMPRESSION: [id number] right hip degenerative change. No evidence acute bony abnormality. per Nixon aMyer M.D. on 11/15/2022 PT-OP-C Subjective Start: 01/11/23 12:53 Freq: Status: Active Protocol: Document 02/02/23 09:50 DCW (Rec: 02/02/23 10:31 DCW [id number]) OP-PT Subjective Patient Comments Patient Comments Pt feels like she has made very good progress, but still feels like things a very tight. PT-OP-F Manual Assessment Start: 01/11/23 12:53 Freq: Status: Active Protocol: Document 01/11/23 12:00 DCW (Rec: 01/11/23 13:20 DCW [id number]) Manual Assessments Joint Mobility Assessment Joint Mobility Assessment Good right hip joint mobility, no limitations. Appears to have mild right hip ASIS elevation/torsion PT-OP-K Range of Motion Start: 01/11/23 12:53 Freq: Status: Active Protocol: Document 01/11/23 12:00 DCW (Rec: 01/11/23 13:20 DCW [id number]) Hip Goniometric Range of Motion Hip Right Active Hip ROM WFL Yes Testing Position Sitting PT-OP-M Strength Start: 01/11/23 12:53 Freq: Status: Active Protocol: Document 01/11/23 12:00 DCW (Rec: 01/11/23 13:20 DCW [id number]) Hip Strength Hip Manual Muscle Testing Right Flexion (L2) 5 Normal Abduction 5 Normal Adduction 5 Normal External Rotation 5 Normal Internal Rotation 5 Normal Knee Strength Knee Manual Muscle Testing Right Flexion (S2) 5 Normal Extension (L3) 5 Normal PT-OP-Q Treatments Start: 01/11/23 12:53 Freq: Status: Active Protocol: Document 02/02/23 09:50 DCW (Rec: 02/02/23 10:31 DCW [id number]) Gym Equipment Therapeutic Ball Pelvic tilts Exercise Details Pelvic tilts/circles Ball Size/Color Green - 65 cm Therapeutic Exercises Supine Exercises ITB Supine Exercise Name Supine ITB stretch /c strap Side right Standing Exercises Hip hiking Standing Exercise Name Hip hiking Side bilateral Equipment Used 6 step Manual Therapy Treatment Soft Tissue Mobilization Hip Flexors Body Location R hip flexors Mobilization Type Sustained Pressure,Trigger Point Release Intensity/Depth Moderate Body Position Hooklying Lumbar paraspinals Body Location R>L Mobilization Type Sustained Pressure,Trigger Point Release Intensity/Depth Moderate Body Position Prone PT-OP-T Assessment and Plan Start: 01/11/23 12:53 Freq: Status: Active Protocol: Document 02/02/23 09:50 DCW (Rec: 02/02/23 10:31 DCW [id number]) Physical Therapy Assessment Impairments Impairments Pain,ROM,Soft Tissue Mobility, Tone Goals Two Impairment Pt wakes up with hip pain on 30% of nights Engineering Design Supervisor Goal (LTG) Pt to sleep through the night with no disturbances caused by hip pain for two full weeks. LTG Duration 02/08/23 One Impairment Pt does not have an appropriate home exercise program Short Term Goal (STG) Pt to be independent and compliant with an appropriate home exercise program STG Duration 01/25/23 Assessment Summary Assessment Pt feeling all HEP stretches have been beneficial, noticing improvement in all areas, although still feels her mobility is somewhat limited due to tightness. Confident with HEP, will likely discharge, however would like to leave open possibility to return for follow-up over the next 2-3 weeks, just in case. If pt has not scheduled a follow-up at by that time, will be discharged. Physical Therapy Plan Frequency and Duration Frequency of Treatment 1-2x/week Plan of Care Start Date 01/11/23 Plan of Care End Date 02/08/23 Therapeutic Interventions Therapeutic Interventions Home Exercise Program,Joint Mobilizations,Manual Therapy, Patient/Caregiver Education, Self-Care/Home Management,Soft Tissue Mobilization, Therapeutic Activities, Therapeutic Exercises Next Visit Focus/Plan Next Note Type Treatment Note Next Visit Plan HEP review, pt education, flexibility/stretching
--- NOTE | 2023-04-24 16:21 | PT.OPDS ---
Current Diagnoses Pain in right hip (02/02/23) Stiffness of right hip, not elsewhere classified (02/02/23) Visit Care Team Role Provider Type Christoph Zuniga MD Attending Provider Physician Family Provider Primary Care Provider Referring Provider Specialty: Family Practice Address: [address] [place] [address], [facility] Email: [email or web address] Visit Number Visit Number 2 Discharge Summary PT-OP-B Current Condition Start: 01/11/23 12:53 Freq: Status: Active Protocol: Document 01/11/23 12:00 DCW (Rec: 01/11/23 13:20 DCW [id number]) Current Condition History of Current Condition Onset Date ~3 month history Current Complaints Right hip pain/stiffness History of Current Condition Pt is a 67 year old female presenting with a three month history of right hip pain. Had an x-ray and was found to have mild-moderate OA. Two months ago when she went to see her PCP, he was experiencing nightly pain, which was disturbing her sleep . Admits that between then and now, she noticed quite a bit of improvement, although while not flared-up anymore, she still has some vague, base- line soreness fairly regularly . Does note that five years ago, she was in PT for similar pain, and has restarted some of her prior HEP, which has been helping some, but she doesn't quite remember everything. Prior Treatments and Tests Right hip x-ray: IMPRESSION: Cate-ip-orhlsmmp right hip degenerative change. No evidence acute bony abnormality. per Nixon Mayer M.D. on 11/15/2022 PT-OP-C Subjective Start: 01/11/23 12:53 Freq: Status: Active Protocol: Document 02/02/23 09:50 DCW (Rec: 02/02/23 10:31 DCW [id number]) OP-PT Subjective Patient Comments Patient Comments Pt feels like she has made very good progress, but still feels like things a very tight. PT-OP-F Manual Assessment Start: 01/11/23 12:53 Freq: Status: Active Protocol: Document 01/11/23 12:00 DCW (Rec: 01/11/23 13:20 DCW [id number]) Manual Assessments Joint Mobility Assessment Joint Mobility Assessment Good right hip joint mobility, no limitations. Appears to have mild right hip ASIS elevation/torsion PT-OP-K Range of Motion Start: 01/11/23 12:53 Freq: Status: Active Protocol: Document 01/11/23 12:00 DCW (Rec: 01/11/23 13:20 DCW [id number]) Hip Goniometric Range of Motion Hip Right Active Hip ROM WFL Yes Testing Position Sitting PT-OP-M Strength Start: 01/11/23 12:53 Freq: Status: Active Protocol: Document 01/11/23 12:00 DCW (Rec: 01/11/23 13:20 DCW [id number]) Hip Strength Hip Manual Muscle Testing Right Flexion (L2) 5 Normal Abduction 5 Normal Adduction 5 Normal External Rotation 5 Normal Internal Rotation 5 Normal Knee Strength Knee Manual Muscle Testing Right Flexion (S2) 5 Normal Extension (L3) 5 Normal PT-OP-T Assessment and Plan Start: 01/11/23 12:53 Freq: Status: Active Protocol: Document 04/24/23 16:19 DCW (Rec: 04/24/23 16:21 DCW [id number]) Physical Therapy Assessment Assessment Summary Assessment At time of last visit (), patient was in agreement with likely discharge, however was a little worried about if she had any ongoing issues with HEP or any further questions. Therapist agreed to keep pt's case open for ~1 month in case she required a follow-up. Pt has now not been seen in two months, will be discharged from skilled therapy at this time. Physical Therapy Plan Discharge Physical Therapy Discharge Reasons No Longer Attending PT
== END 2023-04-26 10:21 | disposition home or self-care (01) ==
LOC: PHYS 09:45
PROVIDERS: Family Provider Family Medicine; PCP Family Medicine; Referring Provider Family Medicine; Visit Provider Family Medicine
DX: M25.551 Pain in right hip (principal); M25.651 Stiffness of right hip, not elsewhere classified
CPT/HCPCS: 97110; 97140; 97161

== ENCOUNTER → 2023-04-25 14:59 | Outpatient (CLI) | payer MEDICARE, OTHER, SELFPAY ==
--- NOTE | 2023-04-25 15:00 | DI.RAD.S_ITS ---
PROCEDURE: XR FOOT RT MIN 3V INDICATIONS: Right foot and ankle injury TECHNIQUE: 3 views of the foot were acquired. COMPARISON: None. FINDINGS: Bones: No fractures or dislocations. Osteoarthritic changes are noted throughout right foot more notably involving 1st interphalangeal joint. No suspicious bony lesions. Soft tissues: Small to moderate tibiotalar joint effusion. Amorphous calcifications involving thickened distal Achilles tendon at its posterior calcaneal insertion is seen. IMPRESSION: No acute right foot fracture or dislocation. Right foot osteoarthritis as above. Suggestion of calcific tendinitis involving distal Achilles tendon. Dictated by: Feroz Gardner M.D. on 04/25/2023 at 15:45 Approved by: Feroz Gardner M.D. on 04/25/2023 at 15:46
--- NOTE | 2023-04-25 15:00 | DI.RAD.S_ITS ---
PROCEDURE: XR ANKLE RT MIN 3V INDICATIONS: Right foot and ankle injury TECHNIQUE: 3 views of the ankle were acquired. COMPARISON: None. FINDINGS: Bones: No fractures or dislocations. Ankle mortise is normally aligned. No suspicious bony lesions. Soft tissues: Ill-defined calcifications are seen scattered along the length of Achilles tendon with thickened distal Achilles tendon concerning for tendinosis. Small to moderate tibiotalar joint effusion is also present. IMPRESSION: No acute ankle fracture or dislocation. Small to moderate tibiotalar joint effusion. Suggestion of calcific tendinitis involving Achilles tendon and distal Achilles tendinosis. No full-thickness Achilles tendon rupture. Dictated by: Feroz Gardner M.D. on 04/25/2023 at 15:44 Approved by: Feroz Gardner M.D. on 04/25/2023 at 15:45
== END ==
PROVIDERS: Family Provider Family Medicine; PCP Family Medicine; Referring Provider Registered Nurse; Visit Provider Registered Nurse
DX: M19.071 Primary osteoarthritis, right ankle and foot (principal); M25.571 Pain in right ankle and joints of right foot; M25.471 Effusion, right ankle
CPT/HCPCS: 73610; 73630

== ENCOUNTER → 2023-06-30 15:03 | Outpatient (CLI) | payer MEDICARE, OTHER, SELFPAY ==
--- NOTE | 2023-06-30 15:06 | DI.US.S_ITS ---
PROCEDURE: US PELVIC COMPLETE INDICATIONS: Post menopausal bleeding x 4 days; on HRT TECHNIQUE: Real-time scanning was performed of the pelvic organs, with image documentation. Additional endovaginal scanning was necessary due to incomplete visualization of the adnexal and endometrial structures by transabdominal scanning. COMPARISON: None. FINDINGS: Uterus: Uterus is anteverted and normal in size at 7.4 x 5.3 x 4.1 cm. The myometrium is mildly heterogeneous. The endometrium measures 3 mm combined thickness. Ovaries: The right ovary measures 2.3 x 1.5 x 1.0 cm, with a calculated ovarian volume of 1.8 cc. The left ovary measures 2.4 x 1.6 x 1.0 cm, with a calculated ovarian volume of 2.0 cc. The ovaries have a normal sonographic appearance. Less than 12 follicles can be seen in each ovary. No adnexal masses are seen. Other: No pathologic free abdominal or pelvic fluid. IMPRESSION: Unremarkable sonographic evaluation of the uterus and ovaries. We strive to produce accurate, complete, and clear reports of imaging services. To assist us in improving patient care, this report was composed using standard report templates and voice recognition software. Therefore, it may contain abnormal punctuation, insertions and/or omissions. Occasional wrong-word or sound-alike substitutions may occur. Though we review the report and make efforts to correct it, we do recommend that the report be read carefully in proper context to recognize any text inaccuracies. Dictated by: Vinay Augustin M.D. on 06/30/2023 at 21:28 Approved by: Vinay Augustin M.D. on 06/30/2023 at 21:36
== END ==
LOC: US 15:04
PROVIDERS: Family Provider Family Medicine; PCP Family Medicine; Referring Provider Physician Assistant; Visit Provider Physician Assistant
DX: N95.0 Postmenopausal bleeding (principal)
CPT/HCPCS: 76830; 76856

== ENCOUNTER 2023-07-20 11:45 | Outpatient (RCR) | payer MEDICARE, OTHER, SELFPAY ==
--- NOTE | 2023-07-20 17:50 | PT.OIE ---
Current Diagnoses Other chronic pain (07/20/23) Pain in right ankle and joints of right foot (07/20/23) Achilles tendinitis, unspecified leg (07/20/23) Achilles tendinitis, right leg (07/20/23) Pain in right foot (07/20/23) Past Medical History (Last Reviewed 04/25/23 @ 14:58 by WYATT Mcarthur) Excessive daytime sleepiness Hordeolum internum right upper eyelid Hypertension Hypothyroidism Post menopausal syndrome Seasonal allergies Visit Care Team Role Provider Type Christoph Zuniga MD Family Provider Physician Primary Care Provider Specialty: Family Practice Address: [address] [place] [address], [id number] Email: [email or web address] Karla Danielson DO Attending Provider Physician Referring Provider Specialty: [facility] Practice Address: [address] [place] [address], [address], [place], [address] Email: 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 Pt reports pain began very specifically at the midpoint of her fourth metatarsal. Pain began fairly mild with walking, but has been getting worse and worse over time. Went to the walk-in clinic three months ago, an x-ray was largely unremarkable, mild OA , specifically in great toe IP and calcific Achilles tendonitis, likely left over from severe tendonitis ~5 years ago. With changes in her gait due to metatarsal pain, pt has recently developed pain along lateral malleoli. PT-OP-C Subjective Start: 07/20/23 16:56 Freq: Status: Active Protocol: Document 07/20/23 12:00 DCW (Rec: 07/20/23 17:02 DCW [id number]) OP-PT Subjective Patient Comments Patient Comments I took a muslce relaxor a week ago dur to back pain when flying, and my foot has actually been a little bit better since then. Patient Questionnaires Foot & Ankle Ability Measure- ADL and Sports FAAM-ADL Score 61.9% FAAM-ADL Impairment 20 to 39% Impaired (Score 50- 66) Lower Extremity Functional Scale LEFS Score 51/80 = 63.75% PT-OP-F Manual Assessment Start: 07/20/23 16:56 Freq: Status: Active Protocol: Document 07/20/23 12:00 DCW (Rec: 07/20/23 17:44 DCW [id number]) Manual Assessments Soft Tissue Assessment Soft Tissue Mobility Assessment Mild-moderate edema along right lateral malleoli Other Manual Assessments Other Manual Assessments Strongly positive tuning fork test on R 4th metatarsal PT-OP-G Mobility & Gait Start: 07/20/23 16:56 Freq: Status: Active Protocol: Document 07/20/23 12:00 DCW (Rec: 07/20/23 17:44 DCW [id number]) OP Gait Assessment Comments Gait Comments Pt has slight external rotation of right foot during gait, resulting in decreased push-off from great toe and increased push-off from toes 3 -4-5. PT-OP-K Range of Motion Start: 07/20/23 16:56 Freq: Status: Active Protocol: Document 07/20/23 12:00 DCW (Rec: 07/20/23 17:44 DCW [id number]) Ankle and Foot Goniometric Range of Motion Ankle and Foot ROM Limitations Comments Right ankle ROM WNL PT-OP-M Strength Start: 07/20/23 16:56 Freq: Status: Active Protocol: Document 07/20/23 12:00 DCW (Rec: 07/20/23 17:44 DCW [id number]) Ankle/Foot Strength Ankle and Foot Manual Muscle Testing Right Dorsiflexion (L4) 5 Normal Plantarflexion (S1) 5 Normal Inversion 5 Normal Eversion (S1) 4 Good Comments Eversion limited due to pain with resistance PT-OP-T Assessment and Plan Start: 07/20/23 16:56 Freq: Status: Active Protocol: Document 07/20/23 12:00 DCW (Rec: 07/20/23 17:44 DCW [id number]) Physical Therapy Assessment Assessment Summary Assessment Pt presents with signs and symptoms potentially suggestive of a possible stress fracture along her 4th metatarsal. Strongly positive tuning fork test can be indicative of small stress fractures. Foot pain has likely caused pt to change gait pattern, resulting in inflammation of peroneal tendons. Following discussion with pt, she would prefer further testing prior to attempting any skilled therapy at this time. Did discuss changed pt can attempt to correct gait dysfunction and decrease inflammation of peroneal tendons. At this point, would strongly recommend further advanced imaging to assess for potential stress fractures. Pt agreeable to return to skilled PT with a new referral if indicated in the future. Discharge from PT at this time . Physical Therapy Plan Discharge Physical Therapy Discharge Reasons No Longer Attending PT Next Visit Focus/Plan Next Note Type Discharge Summary
--- NOTE | 2023-07-20 17:50 | PT.OPPOC ---
Physical, Occupational & Speech Therapy At [facility] Current Diagnoses Other chronic pain (07/20/23) Pain in right ankle and joints of right foot (07/20/23) Achilles tendinitis, unspecified leg (07/20/23) Achilles tendinitis, right leg (07/20/23) Pain in right foot (07/20/23) Visit Care Team Role Provider Type Christoph Zuniga MD Family Provider Physician Primary Care Provider Specialty: [facility] Address: [address] [place] [address], [facility] Email: [email or web address] Karla Danielson DO Attending Provider Physician Referring Provider Specialty: [facility] Address: [address] [place] [address], [facility] [address], [place], [facility] Email: [email or web address] Plan Of Care PT-OP-T Assessment and Plan Start: 07/20/23 16:56 Freq: Status: Active Protocol: Document 07/20/23 12:00 DCW (Rec: 07/20/23 17:44 DCW [id number]) Physical Therapy Assessment Assessment Summary Assessment Pt presents with signs and symptoms potentially suggestive of a possible stress fracture along her 4th metatarsal. Strongly positive tuning fork test can be indicative of small stress fractures. Foot pain has likely caused pt to change gait pattern, resulting in inflammation of peroneal tendons. Following discussion with pt, she would prefer further testing prior to attempting any skilled therapy at this time. Did discuss changed pt can attempt to correct gait dysfunction and decrease inflammation of peroneal tendons. At this point, would strongly recommend further advanced imaging to assess for potential stress fractures. Pt agreeable to return to skilled PT with a new referral if indicated in the future. Discharge from PT at this time . Physical Therapy Plan Discharge Physical Therapy Discharge Reasons No Longer Attending PT Next Visit Focus/Plan Next Note Type Discharge Summary Electronically Signed by: Thanh Contreras, PT 07/20/23 0663 If you are in agreement with this Plan of Care, please return a signed and dated copy. I have reviewed this Plan of Care and certify that the skilled therapy services above are required to meet the patient?s needs. Physician Signature Date Printed Name and Credentials Clinical Instructor Signature Printed Name and Credentials
== END 2023-07-24 11:12 | disposition home or self-care (01) ==
LOC: PHYS 11:45
PROVIDERS: Family Provider Family Medicine; PCP Family Medicine; Referring Provider Family Medicine; Visit Provider Family Medicine
DX: M76.60 Achilles tendinitis, unspecified leg (principal); M76.61 Achilles tendinitis, right leg; M79.671 Pain in right foot; M25.571 Pain in right ankle and joints of right foot; G89.29 Other chronic pain
CPT/HCPCS: 97162

== ENCOUNTER → 2023-07-30 09:59 | Outpatient (CLI) | payer MEDICARE, OTHER, SELFPAY ==
--- NOTE | 2023-07-30 10:02 | DI.MRI.S_ITS ---
PROCEDURE: MR FOOT RT WO CON INDICATIONS: Exam indicative of stress fracture TECHNIQUE: Multiphasic, multisequence MRI of the forefoot was performed, without intravenous contrast administration. COMPARISON: None. FINDINGS: Image quality: Excellent. Bones and joints: No bone marrow contusions or metatarsal stress fractures. Osteoarthritic changes throughout right foot are seen with joint space narrowing, subchondral sclerosis and small marginal osteophyte formation more notably involving MTP joints and articulation between 1st metatarsal head and sesamoids. Subcortical cystic changes are noted involving medial sesamoid bone and adjacent plantar aspect of 1st metatarsal head. Soft tissues: The visualized plantar foot muscles demonstrate normal signal and bulk there is tendinosis and low-grade partial-thickness tear involving flexor tendon of the 4th toe at the level of 4th MTP joint. Rest of the visualized flexor and extensor tendons appear intact, without tenosynovitis. The distal insertions of the peroneus brevis and longus tendons appear intact. The principal Lisfranc ligament appears intact. No soft tissue ganglion cysts or bursal fluid collections. Sagittal images demonstrate no definite plantar plate tear. IMPRESSION: 1. Flgt-uk-zqxhopbu right foot osteoarthritis. No acute fracture or dislocation. No evidence of metatarsal stress fractures. No suspicious bony lesions. 2. Low to moderate grade partial-thickness tear involving flexor tendons of the 4th toe at the level of 4th MTP joint. Rest of the extensor and flexor tendons are intact. 3. No definite plantar plate tear. Principal Lisfranc ligament is intact. Dictated by: Feroz Gardner M.D. on 07/31/2023 at 10:24 Approved by: Feroz Gardner M.D. on 07/31/2023 at 11:00
== END ==
PROVIDERS: Family Provider Family Medicine; PCP Family Medicine; Referring Provider Family Medicine; Visit Provider Family Medicine
DX: S96.011A Strain of muscle and tendon of long flexor muscle of toe at ankle and foot level, right foot, initial encounter (principal); M19.071 Primary osteoarthritis, right ankle and foot; M79.671 Pain in right foot
CPT/HCPCS: 73718

== ENCOUNTER → 2023-08-08 14:21 | Outpatient (CLI) | payer MEDICARE, OTHER, SELFPAY ==
--- NOTE | 2023-08-08 | DI.MG.S_ITS ---
BILATERAL DIGITAL SCREENING MAMMOGRAM 3D/2D WITH CAD: 08/08/2023 CLINICAL: Routine screening. Comparison is made to exams dated: 06/08/2022 mammogram - [facility], 06/18/2020 mammogram, and 05/09/2019 mammogram - out side. Both breasts are heterogeneously dense, which may obscure small masses (category c / 51-75% glandular tissue). Current study was also evaluated with a Computer Aided Detection (CAD) system. There are benign calcifications in both breasts. No significant masses, calcifications, or other findings are seen in either breast. There has been no significant interval change. IMPRESSION: BENIGN There is no mammographic evidence of malignancy. A 1 year screening mammogram is recommended. Based on the Tyrer Cuzick model (a risk assessment model) the patient's lifetime risk is 11.5% and her 10 year risk is 6.2%. According to the ACR, ACS, and NCCN guidelines, an annual breast MRI exam along with mammogram is recommended if the patient's lifetime risk is 20% or greater. This exam was interpreted at Station ID: [id number]. NOTE: For mammograms, a report in lay terms will be sent to the patient. Approximately 15% of breast malignancies will not be visualized mammographically. In the management of a palpable breast mass, a negative mammogram must not discourage biopsy of a clinically suspicious lesion. Electronically Signed By: Alexys martin/eric:08/08/2023 16:10:47 letter sent: Normal Exam ACR BI-RADS Category 2: Benign Finding(s) 3342F
== END ==
PROVIDERS: Family Provider Family Medicine; PCP Family Medicine; Referring Provider Family Medicine; Visit Provider Family Medicine
DX: Z12.31 Encounter for screening mammogram for malignant neoplasm of breast (principal); R92.333 Mammographic heterogeneous density, bilateral breasts
CPT/HCPCS: 77063; 77067

== ENCOUNTER → 2023-12-07 14:12 | Outpatient (CLI) | payer MEDICARE, OTHER, SELFPAY ==
[2023-12-07 15:16] LABS: Influenza A - CEPHEID Flu A NEGATIVE (NEGATIVE); Influenza B - CEPHEID Flu B NEGATIVE (NEGATIVE); Respiratory Syncytial Virus Negative (Negative)
[2023-12-07 15:25] LABS: COVID-19 CEPHEID 4-PLEX PCR Negative (Negative)
== END ==
PROVIDERS: Family Provider Family Medicine; PCP Family Medicine; Visit Provider Physician Assistant Medical
DX: J02.9 Acute pharyngitis, unspecified (principal); R05.9 Cough, unspecified
CPT/HCPCS: 0241U; 87070

== ENCOUNTER → 2023-12-19 13:54 | Outpatient (CLI) | payer MEDICARE, OTHER, SELFPAY ==
--- NOTE | 2023-12-19 13:55 | DI.RAD.S_ITS ---
PROCEDURE: XR CHEST 2V INDICATIONS: Clinical suspicion of pneumonia, cough [id number] per notes TECHNIQUE: 2 views of the chest were acquired. COMPARISON: None. FINDINGS: Lzyu-ww-eisghbhh bilateral diffuse peribronchial thickening with patchy lower lobe opacities suspicious for bronchitis, bronchopneumonia, viral infection. Aspiration pneumonitis or other process could be considered less likely. No focal lobar consolidation. Zepn-yc-ungovtib calcifications of the aortic arch. Moderate degenerate changes of the thoracic spine. No pneumothorax, no pleural effusion, cardiopericardial silhouette and pulmonary vasculature within normal limits. IMPRESSION: Fszj-id-ghncrjow bilateral peribronchial thickening with patchy lower lobe opacities suspicious for bronchitis, bronchopneumonia, viral infection as discussed above. Follow-up suggested. If symptoms persist or worsen, CT could be performed Oipv-as-cqcngukz calcifications of the aortic arch. Dictated by: Tod Zurita M.D. on 12/19/2023 at 20:50 Approved by: Tod Zurita M.D. on 12/19/2023 at 20:53
== END ==
PROVIDERS: Family Provider Family Medicine; PCP Family Medicine; Referring Provider Family Medicine; Visit Provider Family Medicine
DX: J06.9 Acute upper respiratory infection, unspecified (principal); I70.0 Atherosclerosis of aorta; M47.814 Spondylosis without myelopathy or radiculopathy, thoracic region
CPT/HCPCS: 71046

== ENCOUNTER → 2024-02-01 08:27 | Outpatient (CLI) | payer MEDICARE, OTHER, SELFPAY ==
[2024-02-01 10:13] LABS: Add Manual Diff / Slide Review NO; Basophils Absolute Auto 0 /uL (0-100); Basophils Percent Auto 0.7 % (0-2); Eosinophils Absolute Auto 200 /uL (0-450); Eosinophils Percent Auto 4.6 % (2-4); Hematocrit 39.7 % (36-46); Hemoglobin 13.4 g/dL (12.0-16.0); Lymphocytes Absolute Auto 2000 /uL (1100-4500); Lymphocytes Percent Auto 37.7 % (25-40); Mean Corpuscular HGB Conc 33.7 % (30-36); Mean Corpuscular Hemoglobin 32.6 PG (26-34); Mean Corpuscular Volume 96.8 fL (80-100); Monocytes Absolute Auto 400 /uL (0-900); Monocytes Percent Auto 8.1 % (3-14); Neutrophils Absolute Auto 2600 /uL (1500-7000); Neutrophils Percent Auto 48.9 % (50-75); Platelet Count 198 X10^3/uL (150-400); Red Cell Distribution Width 12.7 % (11.6-14.8); White Blood Cell Count 5.2 X10^3/uL (4.5-11.0)
[2024-02-01 10:16] LABS: Creatinine Urine Random 188.49 mg/dL
[2024-02-01 10:21] LABS: Microalbumin Urine Random 0.7 mg/dL (0-1.6)
[2024-02-01 10:35] LABS: Alanine Aminotransferase 29 IU/L (<35); Albumin 4.1 g/dL (3.5-5.0); Albumin Globulin Ratio 1.5 (1.0-2.8); Alkaline Phosphatase 53 U/L (38-126); Aspartate Aminotransferase 28 IU/L (14-36); BUN Creatinine Ratio 17.2 (6-22); Bilirubin Total 1.4 mg/dL (0.2-1.3); Blood Urea Nitrogen 16 mg/dL (7-17); Calcium 9.6 mg/dL (8.4-10.2); Carbon Dioxide 26 mmol/L (22-32); Chloride 104 mmol/L (98-107); Cholesterol 160 mg/dL (140-199); Estimated Glomerular Filt Rate > 60 mL/min (>60); Globulin 2.8 g/dL (1.7-4.1); Glucose 97 mg/dL (80-110); HDL Cholesterol 57 mg/dL (40-60); HEMOLYSIS < 15 (0-50); LDL Cholesterol Calculated 77 mg/dL (<100); Potassium 4.3 mmol/L (3.4-5.1); Sodium 137 mmol/L (137-145); Total Protein 6.9 g/dL (6.3-8.2); Triglycerides 128 mg/dL (35-150)
[2024-02-01 11:09] LABS: TSH w/ Reflex to FT4 3.46 uIU/mL (0.47-4.68)
== END ==
PROVIDERS: Family Provider Family Medicine; PCP Family Medicine; Referring Provider Family Medicine; Visit Provider Family Medicine
DX: Z00.00 Encounter for general adult medical examination without abnormal findings (principal); I10 Essential (primary) hypertension; N95.1 Menopausal and female climacteric states; E03.9 Hypothyroidism, unspecified; J30.2 Other seasonal allergic rhinitis; M25.551 Pain in right hip
CPT/HCPCS: 36415; 80053; 80061; 82043; 82570; 84443; 85025

== ENCOUNTER → 2024-02-02 10:16 | Outpatient (CLI) | payer MEDICARE, OTHER, SELFPAY ==
--- NOTE | 2024-02-02 10:17 | DI.RAD.S_ITS ---
PROCEDURE: XR DEXA AXIAL SKELETON INDICATIONS: post menopausal syndrome COMPARISON: None. FINDINGS: Lumbar Spine: Bone mineral density 1.180 g/cm2, T score 1.2. Left Hip: Bone mineral density 1.021 g/cm2, T score 0.6. Left Femoral Neck: Bone mineral density 0.880 g/cm2, T score 0.3. Right Hip: Bone mineral density 0.964 g/cm2, T score 0.2. Right Femoral Neck: Bone mineral density 0.850 g/cm2, T score 0.0. Fracture Risk Calculation (when applicable): 10-year fracture risk of a major osteoporotic fracture 0.3 percent and of a hip fracture 6.9 percent. (T score greater or equal to -1.0 to: NORMAL) (T score from -1.1 to -2.4: OSTEOPENIA) (T score less than or equal to -2.5: OSTEOPOROSIS) IMPRESSION: Normal bone mineral density by WHO classification. Follow-up guidelines as follows: Osteoporosis: Consider a repeat DEXA and Vertebral Fracture Assessment (VFA) exam in 2 years or sooner if medically necessary, to reassess this patient's status. Osteopenia: Consider a repeat DEXA in 2-3 years to reassess this patient's status, or if there is a new clinical indication. Normal: Consider a repeat DEXA in 5 years or sooner, or if there is a new clinical indication. All treatment decisions require clinical judgment and consideration of individual patient factors, including patient preferences, comorbidities, previous drug use, risk factors not captured in the FRAX model (e.g., frailty, falls, vitamin D deficiency, increased bone turnover, interval significant decline in bone density ) and possible under- or over-estimation of fracture risk by FRAX. In addition, the NOF Guide recommends that FDA-approved medical therapies be considered in postmenopausal women and men age >= 50 years with a: * Hip or vertebral (clinical or morphometric) fracture * T-score of <=-2.5 at the spine or hip * Ten-year fracture probability by FRAX of >= 3% for hip fracture or >=20% for major osteoporotic fracture. People with diagnosed cases of osteoporosis or at high risk for fracture should have regular bone mineral density tests. For patients eligible for Medicare, routine testing is allowed once every 2 years. The testing frequency can be increased to one year for patients who have rapidly progressing disease, those who are receiving or discontinuing medical therapy to restore bone mass, or have additional risk factors. Dictated by: Bam Nicholson M.D. on 02/02/2024 at 11:13 Approved by: Bam Nicholson M.D. on 02/02/2024 at 11:14
== END ==
LOC: RAD 10:16
PROVIDERS: Family Provider Family Medicine; PCP Family Medicine; Referring Provider Family Medicine; Visit Provider Family Medicine
DX: M85.89 Other specified disorders of bone density and structure, multiple sites (principal); N95.1 Menopausal and female climacteric states
CPT/HCPCS: 77080

== ENCOUNTER → 2024-06-10 10:52 | Outpatient (CLI) | payer MEDICARE, OTHER, SELFPAY ==
[2024-06-11 09:40] LABS: Rubeola Measles IgG > 300.0 AU/mL (Immune >16.4)
[2024-06-11 14:39] LABS: Rubella Antibody IgG 58.5 IU/mL (>15)
== END ==
PROVIDERS: Family Provider Family Medicine; PCP Family Medicine; Referring Provider Family Medicine; Visit Provider Family Medicine
DX: Z01.84 Encounter for antibody response examination (principal)
CPT/HCPCS: 36415; 86735; 86762; 86765

== ENCOUNTER → 2024-06-17 16:22 | Outpatient (CLI) | payer MEDICARE, OTHER, SELFPAY | PROVIDERS: Family Provider Family Medicine; PCP Family Medicine; Referring Provider Family Medicine; Visit Provider Family Medicine | DX: Z12.11 Encounter for screening for malignant neoplasm of colon (principal) | CPT/HCPCS: 82274 ==

== ENCOUNTER → 2024-10-02 16:06 | Outpatient (CLI) | payer MEDICARE, OTHER, SELFPAY ==
--- NOTE | 2024-10-02 16:08 | DI.MG.S_ITS ---
MM screening mammo BI: 10/02/2024. BI-RADS: 2 CLINICAL: 68-year old female for bilateral screening mammogram. Tyrer-Cuzick lifetime risk of 7.8%. No personal or first-degree family history of breast cancer. PRIOR EXAMS 08/08/2023, 06/08/2022. MAMMOGRAPHY TECHNIQUE: 2D and 3D (tomosynthesis) digital mammographic views obtained, with additional images as needed for full coverage. Current study was also evaluated with a Computer Aided Detection (CAD) system. DENSITY C. The breasts are heterogeneously dense, which may obscure small masses. MAMMOGRAPHY FINDINGS Bilateral: Benign-appearing calcifications noted. There are no suspicious masses, calcifications, or other findings in the breast. No significant change from comparison. IMPRESSION: * No evidence of malignancy with benign findings. RECOMMENDATIONS Bilateral * Annual screening mammography. OVERALL ASSESSMENT CATEGORY BI-RADS-2: Benign. The [employer] recommends annual screening mammography beginning at age 40 for women with average risk of breast cancer. ELECTRONICALLY SIGNED: Alexys Thomas M.D. on 10/03/2024 at 10:13:54 AM PT Interpreting Station ID: [id number]
== END ==
PROVIDERS: Family Provider Family Medicine; PCP Family Medicine; Referring Provider Family Medicine; Visit Provider Family Medicine
DX: Z12.31 Encounter for screening mammogram for malignant neoplasm of breast (principal); R92.333 Mammographic heterogeneous density, bilateral breasts
CPT/HCPCS: 77063; 77067

== ENCOUNTER 2024-10-18 15:52 | Emergency (ER) | payer MEDICARE, OTHER, SELFPAY ==
[2024-10-18 16:12] VITALS: BP 170/89; PULSE 99; RESP 16; TEMP 36.2; O2SAT 98; BMI 25.4
--- NOTE | 2024-10-18 16:19 | DI.RAD.S_ITS ---
PROCEDURE: XR HAND RT 2V INDICATIONS: bit by dog, hand swollen and painful TECHNIQUE: 2 views of the hand(s) acquired. COMPARISON: None. FINDINGS: Bones: No fractures or dislocations. Osteoarthritic changes are noted throughout right hand and wrist joints. Carpal bones are normally aligned. No suspicious bony lesions. Soft tissues: soft tissue swelling and small amount of subcutaneous air over dorsal aspect of right hand and wrist is seen. No radiopaque foreign body. IMPRESSION: No acute right hand fracture or dislocation. Right hand and wrist joint osteoarthritis. Soft tissue swelling and subcutaneous emphysema in dorsal aspect of right hand and wrist. No radiopaque foreign bodies. Dictated by: Feroz Gardner M.D. on 10/18/2024 at 16:44 Approved by: Feroz Gardner M.D. on 10/18/2024 at 16:45
[2024-10-18] MEDS: ACETAMINOPHEN 325 MG TABLET 975 MG PO (16:40)
--- NOTE | 2024-10-18 19:24 | ED.ANIMALBIT ---
HPI - Animal Bite General Chief Complaint: Animal Bite Stated Complaint: animal bit-dog Lt face ,Rt hand Time Seen by Provider: 10/18/24 17:16 History of Present Illness HPI narrative: 68-year-old female history of hypothyroidism, hypertension, attacked boyfriend's dog, unsure last tetanus status but dog is quarantined and fully vaccinated at this time. Other than what is stated 14 point review of system is negative Related Data Home Medications ?Medication ?Instructions ?Recorded ?Confirmed betamethasone dipropionate 0.05 % 1 applictn topical DAILY 04/01/19 01/01/24 lotion cyanocobalamin (vitamin B-12) 1,000 mcg PO DAILY 04/01/19 01/01/24 1,000 mcg capsule loratadine 10 mg capsule 10 mg PO DAILY 04/01/19 01/01/24 cholecalciferol (vitamin D3) 25 5,000 unit PO DAILY 01/19/21 01/01/24 mcg (1,000 unit) capsule cetirizine 10 mg tablet 10 mg PO Pre-allergy shot 11/14/22 01/01/24 preparation montelukast 10 mg tablet 10 mg PO pre-allergy shot 11/14/22 01/01/24 preparation melatonin 5 mg tablet,immediate 5 mg PO BEDTIME 04/25/23 01/01/24 and extended release prilocaine 4% nasal spray intranasal 04/25/23 01/01/24 Previous Rx's ?Medication ?Instructions ?Recorded azelastine 205.5 mcg (0.15 %) 1 spray intranasal BEDTIME #30 mL 12/03/21 nasal spray zolpidem 5 mg tablet (Ambien) 5 mg PO BEDTIME PRN insomnia #30 10/23/23 tabs albuterol sulfate 90 mcg/actuation 2 puff inhalation Q6H PRN 12/19/23 aerosol inhaler shortness of breath or wheezing #6.7 grams prednisone 20 mg tablet 40 mg (2 x 20 mg) PO DAILY #10 tabs 12/19/23 azithromycin 250 mg tablet See Rx Instructions PO .COMPLEX #6 12/20/23 tabs estradiol 0.05 mg/24 hr semiweekly 1 patch transdermal 2XW #32 ea 01/01/24 transdermal patch amlodipine 2.5 mg tablet 2.5 mg PO DAILY #90 tabs 05/27/24 progesterone micronized 200 mg 200 mg PO BEDTIME #90 caps 06/20/24 capsule levothyroxine 100 mcg tablet 100 mcg PO DAILY #90 tabs 07/16/24 rosuvastatin 5 mg tablet 5 mg PO DAILY #90 tabs 08/26/24 amoxicillin 875 mg-potassium 1 tab PO Q12H #14 tabs 10/18/24 clavulanate 125 mg tablet Allergies Allergy/AdvReac Type Severity Reaction Status Date / Time lidocaine AdvReac Intermediate hives Verified 01/01/24 15:30 Review of Systems Review of Systems ROS Unobtainable: All systems reviewed & are unremarkable except as noted in HPI and below Patient History Medical History Excessive daytime sleepiness Seasonal allergies Post menopausal syndrome Hypertension Hypothyroidism Hordeolum internum right upper eyelid Exam Narrative Exam Narrative: GENERAL: [85] year old patient appears stated age. Well-developed patient, in mild distress. HEAD: Atraumatic. Normocephalic. EYES: Pupils equal round and reactive. Extraocular motions intact. No scleral icterus. No injection or drainage. ENT: Nose without bleeding, purulent drainage. Throat without erythema, tonsillar hypertrophy or exudate. Airway patent. NECK: Trachea midline. Non tender CARDIOVASCULAR: Regular rate and rhythm without murmurs, gallops, or rubs. RESPIRATORY: Clear to auscultation. Breath sounds equal bilaterally. No wheezes, rales, or rhonchi. GASTROINTESTINAL: Abdomen soft, non-tender, nondistended. EXTREMITIES: No edema or joint tenderness. BACK: Nontender without deformity or crepitance. No flank tenderness. NEURO: AOx3. SKIN: No rash or erythema of visible areas Initial Vital Signs Initial Vital Signs: Vital Signs Temperature 97.2 F L 10/18/24 16:12 Pulse Rate 99 H 10/18/24 16:12 Respiratory Rate 16 10/18/24 16:12 Blood Pressure 170/89 H 10/18/24 16:12 Pulse Oximetry 98 10/18/24 16:12 Oxygen Delivery Method Room Air 10/18/24 16:12 Procedures Laceration Repair Laceration 1: Time of procedure: 20:18 Site: face Size (cm): 1.0 Description: linear Depth: simple, single layer Local Anesthetic: bupivacaine 0.5% and with epi Amount of anesthesia used (mL): 1 Skin layer closed with: nylon Skin layer suture size: 6-0 Number of sutures: 3 Technique: simple, interrupted Course Orders Ordered: ED Orders 10/18/24 16:19 XR hand RT 2V Stat Discontinued Medications Acetaminophen (Acetaminophen 325 Mg Tablet) 975 mg PO NOW ONE Stop: 10/18/24 16:33 Last Admin: 10/18/24 16:40 Dose: 975 mg Documented By: KIRTI Vital Signs Vital signs: Vital Signs - 8 hr 10/18/24 16:12 Temperature 97.2 F L Pulse Rate 99 H Respiratory Rate 16 Blood Pressure 170/89 H Pulse Oximetry 98 Oxygen Delivery Method Room Air MDM - Animal Bite MDM Narrative Medical decision making narrative: Vital signs, nurse triage note, medication list, previous ER visits, and all imaging studies reviewed. Three stitches placed using 6 0 nylon, tetanus of dated on today's visit Augmentin given as a prescription. Follow up with for suture removal in 5-7 days. Differential diagnosis includes dog bite, cellulitis, foreign body, laceration Discharge Plan Departure Patient Disposition: Home Clinical Impression: Dog bite Instructions: DI for Dog Bite Activity Restrictions/Additional Instructions: Return with new or worsening symptoms. Take antibiotics as directed. Follow up with PCP office in 5-7 days for suture removal. Prescriptions: New amoxicillin-pot clavulanate 875-125 mg tablet 1 tab PO Q12H Qty: 14 0RF No Action loratadine 10 mg capsule 10 mg PO DAILY cyanocobalamin (vitamin B-12) 1,000 mcg capsule 1,000 mcg PO DAILY betamethasone dipropionate 0.05 % lotion 1 applictn TOP DAILY cholecalciferol (vitamin D3) 25 mcg (1,000 unit) capsule 5,000 unit PO DAILY prilocaine 4% nasal spray intranasal melatonin 5 mg tablet, IR and ER, biphasic 5 mg PO BEDTIME azelastine 205.5 mcg (0.15 %) spray,non-aerosol 1 spray NASAL BEDTIME Qty: 30 0RF zolpidem [Ambien] 5 mg tablet 5 mg PO BEDTIME PRN (Reason: insomnia) Qty: 30 3RF azithromycin 250 mg tablet See Rx Instructions PO .COMPLEX Qty: 6 0RF Rx Instructions: For 250 mg dose pack: take 500 mg today (day 1), then 250 mg for 4 days (days 2-5) PO amlodipine 2.5 mg tablet 2.5 mg PO DAILY Qty: 90 2RF progesterone micronized 200 mg capsule 200 mg PO BEDTIME Qty: 90 3RF levothyroxine 100 mcg tablet 100 mcg PO DAILY Qty: 90 1RF rosuvastatin 5 mg tablet 5 mg PO DAILY Qty: 90 0RF montelukast 10 mg tablet 10 mg PO Patient Comments: taken the day of allergy shots, currently once a week but decreasing as frequency of allergy shots decreases cetirizine 10 mg tablet 10 mg PO Patient Comments: taken the day of allergy shots, currently weekly but decreasing as frequency of shots decreases estradiol 0.05 mg/24 hr patch semiweekly 1 patch transdermal 2XW Qty: 32 3RF Rx Instructions: APPLY 1 PATCH TO SKIN TWICE A WEEK ALTERNATING CHANGING BETWEEN 3 AND 4 DAYS albuterol sulfate 90 mcg/actuation HFA aerosol inhaler 2 puff inhalation Q6H PRN (Reason: shortness of breath or wheezing) Qty: 6.7 0RF prednisone 20 mg tablet 40 mg PO DAILY Qty: 10 0RF Referrals: Christoph Zuniga MD [Primary Care Provider, Family Practice] Stand Alone Forms: Patient Portal/API
[2024-10-18] MEDS: BUPIVACAINE 0.25% W/ EPI (PF) 10 ML VIAL 20 ML INJ (20:00)
[2024-10-18] MEDS: TET,DIPH,PERTUSS(ACELL),VAC/PF 0.5 ML SYRINGE IM (20:22)
[2024-10-18] MEDS: AMOXICILLIN/CLAV 875/125 MG 1 TAB PO (20:22)
[2024-10-18] MEDS: BACITRACIN OINT 0.9 GM PCKT 1 APPLIC TOP (20:34)
[2024-10-18 20:37] VITALS: BP 146/81; PULSE 62; RESP 16; O2SAT 97
== END 2024-10-18 20:45 | disposition home or self-care (01) ==
PROVIDERS: Emergency Provider Family Medicine; Family Provider Family Medicine; PCP Family Medicine
DX: S01.85XA Open bite of other part of head, initial encounter (principal); W54.0XXA Bitten by dog, initial encounter; Z23 Encounter for immunization
CPT/HCPCS: 12011; 73120; 90471; 99283; 99284; 90715

== ENCOUNTER → 2024-12-06 11:47 | Outpatient (CLI) | payer MEDICARE, OTHER, SELFPAY ==
--- NOTE | 2024-12-06 11:48 | DI.RAD.S_ITS ---
PROCEDURE: XR KNEE RT 3V INDICATIONS: eval R knee pain, no trauma TECHNIQUE: 3 views of the knee were acquired. COMPARISON: None. FINDINGS: Bones: No fractures or dislocations. Moderate to severe medial and moderate lateral tibiofemoral and patellofemoral compartment narrowing with associated osteophytosis. Varus angulation. Chondrocalcinosis. No suspicious bony lesions. Soft tissues: Moderate joint effusion. No suspicious soft tissue calcifications. IMPRESSION: KL grade 3 tricompartmental osteoarthritis without evidence of acute bony abnormality. Varus angulation, chondrocalcinosis and moderate joint effusion. Dictated by: Osmin Traore M.D. on 12/09/2024 at 4:16 Approved by: Osmin Traore M.D. on 12/09/2024 at 4:18
== END ==
PROVIDERS: Family Provider Family Medicine; PCP Family Medicine; Referring Provider Registered Nurse Diabetes Educator; Visit Provider Registered Nurse Diabetes Educator
DX: M17.11 Unilateral primary osteoarthritis, right knee (principal); M25.461 Effusion, right knee; M11.261 Other chondrocalcinosis, right knee; M25.561 Pain in right knee
CPT/HCPCS: 73562

== ENCOUNTER → 2025-01-21 11:46 | Outpatient (CLI) | payer MEDICARE, OTHER, SELFPAY ==
[2025-01-21 12:19] LABS: Add Manual Diff / Slide Review NO; Hematocrit 36.7 % (36-46); Hemoglobin 12.6 g/dL (12.0-16.0); Lymphocytes Absolute Auto 1900 /uL (1100-4500); Mean Corpuscular HGB Conc 34.3 % (30-36); Mean Corpuscular Hemoglobin 32.9 PG (26-34); Mean Corpuscular Volume 95.9 fL (80-100); Platelet Count 262 X10^3/uL (150-400)
[2025-01-21 12:47] LABS: Alanine Aminotransferase 19 IU/L (<35); Albumin 4.5 g/dL (3.5-5.0); Albumin Globulin Ratio 1.6 (1.0-2.8); Alkaline Phosphatase 77 U/L (38-126); Blood Urea Nitrogen 26 mg/dL (7-17); Calcium 9.5 mg/dL (8.4-10.2); Carbon Dioxide 25 mmol/L (22-32); Chloride 104 mmol/L (98-107); Cholesterol 160 mg/dL (140-199); Estimated Glomerular Filt Rate > 60 mL/min (>60); Globulin 2.8 g/dL (1.7-4.1); Glucose 81 mg/dL (70-99); HDL Cholesterol 64 mg/dL (40-60); HEMOLYSIS < 15 (0-50); Potassium 4.5 mmol/L (3.4-5.1); Sodium 140 mmol/L (137-145); Total Protein 7.3 g/dL (6.3-8.2); Triglycerides 195 mg/dL (35-150)
[2025-01-21 13:17] LABS: TSH w/ Reflex to FT4 4.09 uIU/mL (0.47-4.68)
[2025-01-21 14:44] LABS: Microalbumi Creatinin Ratio Ur 5.0 ug/mg CR (<30)
== END ==
PROVIDERS: Family Provider Family Medicine; PCP Family Medicine; Referring Provider Family Medicine; Visit Provider Family Medicine
DX: I10 Essential (primary) hypertension (principal)
CPT/HCPCS: 36415; 80053; 80061; 82043; 82172; 82570; 84443; 85025

== ENCOUNTER → 2025-03-18 08:30 | Outpatient (CLI) | payer MEDICARE, OTHER, SELFPAY ==
[2025-03-18 09:04] LABS: Add Manual Diff / Slide Review NO; Hematocrit 37.4 % (36-46); Hemoglobin 12.5 g/dL (12.0-16.0); Lymphocytes Absolute Auto 1500 /uL (1100-4500); Mean Corpuscular HGB Conc 33.5 % (30-36); Mean Corpuscular Hemoglobin 32.3 PG (26-34); Mean Corpuscular Volume 96.2 fL (80-100); Platelet Count 252 X10^3/uL (150-400)
[2025-03-18 09:35] LABS: Alanine Aminotransferase 19 IU/L (<35); Albumin 4.3 g/dL (3.5-5.0); Albumin Globulin Ratio 1.5 (1.0-2.8); Alkaline Phosphatase 78 U/L (38-126); Blood Urea Nitrogen 18 mg/dL (7-17); Calcium 9.3 mg/dL (8.4-10.2); Carbon Dioxide 27 mmol/L (22-32); Chloride 106 mmol/L (98-107); Estimated Glomerular Filt Rate > 60 mL/min (>60); Globulin 2.8 g/dL (1.7-4.1); Glucose 100 mg/dL (70-99); HEMOLYSIS < 15 (0-50); Potassium 4.3 mmol/L (3.4-5.1); Sodium 140 mmol/L (137-145); Total Protein 7.1 g/dL (6.3-8.2)
== END ==
PROVIDERS: Family Provider Family Medicine; PCP Family Medicine; Referring Provider Family Medicine; Visit Provider Family Medicine
DX: M25.60 Stiffness of unspecified joint, not elsewhere classified (principal); M25.619 Stiffness of unspecified shoulder, not elsewhere classified; M25.659 Stiffness of unspecified hip, not elsewhere classified
CPT/HCPCS: 36415; 80053; 85025; 85651; 86140